=== PATIENT | male | born 1950 | race Caucasian/White ===

== ENCOUNTER → 2016-09-26 | Outpatient (CLI) | payer MEDICARE ==
--- NOTE | 2016-09-26 15:48 | XR ---
EXAMINATION TYPE: XR chest 2V DATE OF EXAM: 09/26/2016 3:06 PM COMPARISON: 09/07/2010 TECHNIQUE: PA and lateral views submitted. HISTORY: Hoarseness and COPD FINDINGS: The lungs are clear and there is no pneumothorax, pleural effusion, or focal pneumonia. There is pr ominent interstitial markings at the lung bases. No pneumothorax. Hypertrophic and degenerative ibrahim e of the spine. IMPRESSION: 1. Correlate for pulmonary fibrosis. Otherwise, consider interstitial pneumonitis or early venous con gestion. Underlying atelectasis or early infiltrate at both lung bases. Atelectasis favored. Correlat e clinically..
== END | disposition home or self-care (01) ==
LOC: RADXRMAIN 14:53
PROVIDERS: ATTEND Physician Assistant
DX: J44.9 Chronic obstructive pulmonary disease, unspecified (principal)
CPT/HCPCS: 71020

== ENCOUNTER 2016-10-27 10:58 | Emergency (ER) | payer MEDICARE ==
[2016-10-27] MEDS ORDERED: IPRATROPIUM-ALBUTEROL 3 ML NEB INHALATION STA (11:39)
[2016-10-27] MEDS ORDERED: predniSONE 20 MG TAB PO STA (11:39)
--- NOTE | 2016-10-27 12:19 | XR ---
EXAMINATION TYPE: XR chest 2V DATE OF EXAM: 10/27/2016 12:12 PM COMPARISON: 09/26/2016 and 10/14/2016 HISTORY: 66-year-old male with cough TECHNIQUE: PA and lateral views FINDINGS: Heart is normal size. Aorta and pulmonary vasculature within normal limits. There is persistent patch y bibasilar opacity. IMPRESSION: Persistent patchy bibasilar areas of atelectasis or infiltrates.
--- NOTE | 2016-10-27 12:59 | ED ---
General Adult HPI - General Chief complaint: Upper Respiratory Infection Stated complaint: congestion, diff breathing Time Seen by Provider: 10/27/16 11:30 Source: patient, RN notes reviewed Mode of arrival: ambulatory Limitations: no limitations - History of Present Illness Initial comments: 66-year-old male with history of COPD presenting for cough. Patient states that the cough and mild shortness of breath over the past 3 days. He states that he has been using his home nebulizer which does seem to improve his symptoms for some time then symptoms return. He has not been on any recent steroids. He was on antibiotics about a month ago when he had similar symptoms. Denies any fevers or chills. He denies any chest pain. - Related Data Home Medications Medication Instructions Recorded Confirmed Atorvastatin [Lipitor] 20 mg PO DAILY 12/11/15 10/27/16 Insulin Glargine [Lantus] 45 units SQ HS 12/11/15 10/27/16 Lisinopril-Hctz 20-12.5 mg 2 tab PO DAILY 12/11/15 10/27/16 [Zestoretic 20-12.5] Tamsulosin HCl [Flomax] 0.8 mg PO DAILY 12/11/15 10/27/16 glipiZIDE [Glucotrol] 10 mg PO BID 12/11/15 10/27/16 Previous Rx's Medication Instructions Recorded Benztropine Mesylate 1 mg PO BID #60 tablet 12/21/15 Divalproex ER [Depakote ER] 500 mg PO BID #60 tab.er.24h 12/21/15 Perphenazine [Trilafon] 8 mg PO BID #120 tab 12/21/15 Azithromycin [Zithromax] 250 mg PO DAILY #6 tab 10/27/16 predniSONE 40 mg PO DAILY #10 tab 10/27/16 Allergies Allergy/AdvReac Type Severity Reaction Status Date / Time alcohol AdvReac Unknown Verified 10/27/16 11:51 narcotics AdvReac Unknown Uncoded 10/27/16 11:51 Review of Systems ROS Statement: Those systems with pertinent positive or pertinent negative responses have been documented in the HPI. ROS Other: All systems not noted in ROS Statement are negative. 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 Living in a envirnoment with bed bugs, no visualized on patient on admission. 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 - Past Family History Father Additional Family Medical History / Comment(s): Alcoholic Mother Family Medical History: CVA/TIA, Diabetes Mellitus, Myocardial Infarction ([place]) Additional Family Medical History / Comment(s): Addiction Issues, Dementia Daughter(s) Family Medical History: Cancer Additional Family Medical History / Comment(s): Ovarian Cancer General Exam - General Exam Comments Initial Comments: General: Awake and Alert. No acute distress. Does not appear acutely ill. Eyes: EZIO, EOM intact. No nystagmus. No scleral icterus. HENT: Atraumatic, normocephalic. Mucous membranes moist. Trachea midline. Neck: The neck is supple, there is no tenderness or JVD. Cardiovascular: Regular rate and rhythm. No murmur, rub, or gallop is appreciated. Distal pulses intact. Respiratory: Lungs are clear to auscultation bilaterally. Mild wheezes. No rales, rhonchi. No respiratory distress. Gastrointestinal: Soft, Nontender. No rebound or guarding. Non-distended. No masses or organomegaly noted. No CVA tenderness. Musculoskeletal: No tenderness. Normal ROM. No gross deformity. No strength deficits. Neurological: A&Ox3. CN II-XII grossly intact, There are no obvious motor or sensory deficits. Coordination appears grossly intact. Speech is normal. Skin: Skin is warm and dry and no rashes or lesions are noted. Psychiatric: Cooperative, appropriate mood & affect, normal judgment. Limitations: no limitations Course Vital Signs 10/27/16 10/27/16 10/27/16 11:11 11:50 11:58 Temperature 99.0 F Pulse Rate 89 90 96 Respiratory 20 Rate Blood Pressure 136/86 O2 Sat by Pulse 99 Oximetry 10/27/16 10/27/16 13:14 13:18 Temperature 97.7 F 97.7 F Pulse Rate 86 86 Respiratory 16 16 Rate Blood Pressure 141/84 141/84 O2 Sat by Pulse 97 97 Oximetry Medical Decision Making - Medical Decision Making 66-year-old male with history of COPD presenting for shortness of breath and cough. Patient appears clinic stable on exam. No hypoxia. Patient given dose of steroid and breathing treatment. On reevaluation he states he is feeling significantly improved. Chest x-ray with possible early infiltrate. Covered on antibiotics. Also started on steroids. Discussed close follow-up with PCP. Patient states he is also followed with Dr. Bernstein in the past for pulmonology. States he has nebulizer and nebulizer solution at home. Discussed he may use this every 4-6 hours as needed. Discussed recommendation to stop smoking. Discussed concerning signs symptoms for immediate return to the ER. Patient is agreeable with plan and discharge home. - Radiology Data Radiology results: report reviewed, image reviewed Disposition Clinical Impression: COPD exacerbation, Cough, Tobacco abuse Narrative: Possible pneumonia Disposition: HOME SELF-CARE Condition: Stable Instructions: COPD (Chronic Obstructive Pulmonary Disease) (ED), Acute Cough ( ED), How to Stop Smoking (ED) Prescriptions: Azithromycin [Zithromax] 250 mg PO DAILY #6 tab predniSONE 40 mg PO DAILY #10 tab Referrals: Jose Edge MD [Primary Care Provider] - 1-2 days Time of Disposition: 12:58
[2016-10-27 13:16] VITALS: BP 141/84; PULSE 86; RESP 16; TEMP 97.7
== END 2016-10-27 13:19 | disposition home or self-care (01) ==
LOC: EC 10:58
DX: J44.1 Chronic obstructive pulmonary disease with (acute) exacerbation (principal); I25.10 Atherosclerotic heart disease of native coronary artery without angina pectoris; E11.9 Type 2 diabetes mellitus without complications; E78.5 Hyperlipidemia, unspecified; I10 Essential (primary) hypertension; F20.0 Paranoid schizophrenia; N42.9 Disorder of prostate, unspecified; F17.200 Nicotine dependence, unspecified, uncomplicated; Z79.4 Long term (current) use of insulin; Z79.899 Other long term (current) drug therapy; Z88.5 Allergy status to narcotic agent; Z91.048 Other nonmedicinal substance allergy status
CPT/HCPCS: 94640; 71020; 99283; J7512

== ENCOUNTER 2016-11-12 02:19 | Emergency (ER) | payer MEDICARE ==
[2016-11-12] MEDS ORDERED: LORazepam 1 MG TAB PO STA (02:46)
--- NOTE | 2016-11-12 03:57 | ED ---
General Adult HPI - General Chief complaint: Shortness of Breath Stated complaint: SOB Time Seen by Provider: 11/12/16 02:34 Source: patient, RN notes reviewed, old records reviewed Mode of arrival: ambulatory Limitations: no limitations - History of Present Illness Initial comments: This is a 58-year-old male to the ER for evaluation today. The patient didn't stay for evaluation of anxiety reaction. Patient having severe anxiety attack. He says multiple drug addict, alcohol, narcotics, heroin, going through anxiety secondary to family issues. Patient denies chest pain denies shortness of breath but just is pacing in the room. Patient states vacated do a stress anywhere. House other suicidal - Related Data Home Medications Medication Instructions Recorded Confirmed Atorvastatin [Lipitor] 20 mg PO DAILY 12/11/15 10/27/16 Insulin Glargine [Lantus] 45 units SQ HS 12/11/15 10/27/16 Lisinopril-Hctz 20-12.5 mg 2 tab PO DAILY 12/11/15 10/27/16 [Zestoretic 20-12.5] Tamsulosin HCl [Flomax] 0.8 mg PO DAILY 12/11/15 10/27/16 glipiZIDE [Glucotrol] 10 mg PO BID 12/11/15 10/27/16 Previous Rx's Medication Instructions Recorded Benztropine Mesylate 1 mg PO BID #60 tablet 12/21/15 Divalproex ER [Depakote ER] 500 mg PO BID #60 tab.er.24h 12/21/15 Perphenazine [Trilafon] 8 mg PO BID #120 tab 12/21/15 Azithromycin [Zithromax] 250 mg PO DAILY #6 tab 10/27/16 predniSONE 40 mg PO DAILY #10 tab 10/27/16 Allergies Allergy/AdvReac Type Severity Reaction Status Date / Time alcohol AdvReac Unknown Verified 11/12/16 02:23 narcotics AdvReac Unknown Uncoded 11/12/16 02:23 Review of Systems ROS Statement: Those systems with pertinent positive or pertinent negative responses have been documented in the HPI. ROS Other: All systems not noted in ROS Statement are negative. 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 Living in a envirnoment with bed bugs, no visualized on patient on admission. 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 - Past Family History Father Additional Family Medical History / Comment(s): Alcoholic Mother Family Medical History: CVA/TIA, Diabetes Mellitus, Myocardial Infarction ([place]) Additional Family Medical History / Comment(s): Addiction Issues, Dementia Daughter(s) Family Medical History: Cancer Additional Family Medical History / Comment(s): Ovarian Cancer General Exam Limitations: no limitations General appearance: alert, anxious Head exam: Present: atraumatic, normocephalic, normal inspection Eye exam: Present: normal appearance, PERRL, EOMI. Absent: scleral icterus, conjunctival injection, periorbital swelling ENT exam: Present: normal exam, mucous membranes moist Neck exam: Present: normal inspection. Absent: tenderness, meningismus, lymphadenopathy Respiratory exam: Present: normal lung sounds bilaterally. Absent: respiratory distress, wheezes, rales, rhonchi, stridor Cardiovascular Exam: Present: normal rhythm, tachycardia, normal heart sounds. Absent: systolic murmur, diastolic murmur, rubs, gallop, clicks GI/Abdominal exam: Present: soft, normal bowel sounds. Absent: distended, tenderness, guarding, rebound, rigid Extremities exam: Present: normal inspection, full ROM, normal capillary refill. Absent: tenderness, pedal edema, joint swelling, calf tenderness Back exam: Present: normal inspection Neurological exam: Present: alert, oriented X3, CN II-XII intact Psychiatric exam: Present: normal affect, normal mood Skin exam: Present: warm, dry, intact, normal color. Absent: rash Course Vital Signs 11/12/16 11/12/16 02:22 03:24 Temperature 98.3 F Pulse Rate 112 H 83 Respiratory 24 23 Rate Blood Pressure 144/71 111/64 O2 Sat by Pulse 100 100 Oximetry - Reevaluation(s) Reevaluation #1: 11/12/16 06:04 Patient able to rest after Ativan, calm and collected, never complaining of homicide or suicide, Medical Decision Making - Medical Decision Making 6 emailed the year with this or drug abuse coming in with anxiety attack. Symptoms improved with Ativan. Patient will be discharged home Disposition Clinical Impression: Anxiety Disposition: HOME SELF-CARE Condition: Good Instructions: Anxiety (ED) Referrals: Jose Edge MD [Primary Care Provider] - 1-2 days
[2016-11-12 06:31] VITALS: BP 135/72; PULSE 93; RESP 18; TEMP 98.8
== END 2016-11-12 08:13 | disposition home or self-care (01) ==
LOC: EC 02:19
DX: F41.0 Panic disorder [episodic paroxysmal anxiety] (principal); E11.9 Type 2 diabetes mellitus without complications; I10 Essential (primary) hypertension; E78.5 Hyperlipidemia, unspecified; N42.9 Disorder of prostate, unspecified; F17.200 Nicotine dependence, unspecified, uncomplicated; Z79.4 Long term (current) use of insulin; Z79.899 Other long term (current) drug therapy; Z88.5 Allergy status to narcotic agent; Z91.048 Other nonmedicinal substance allergy status; Z95.5 Presence of coronary angioplasty implant and graft
CPT/HCPCS: 99285

== ENCOUNTER 2016-11-13 21:48 | Emergency (ER) | payer MEDICARE ==
--- NOTE | 2016-11-13 22:27 | ED ---
General Adult HPI - General Source: patient, RN notes reviewed Mode of arrival: ambulatory Limitations: no limitations <Scooby Kang - Last Filed: 11/13/16 22:58> <Asher Albarran - Last Filed: 11/14/16 01:47> - General Chief complaint: Psychiatric Symptoms Stated complaint: Mental Health Time Seen by Provider: 11/13/16 22:12 - History of Present Illness Initial comments: Patient is a 66-year-old male with history of bipolar schizophrenia presenting to the emergency Department with problems regarding a breakup with his girlfriend. Patient states this was around March. Patient states he broke up with her because she did not want to go to the psych [facility]ones. Patient has been having problems since that time. Patient is not sleeping well. Patient feels like he has been drugged. Patient has been anxious. Patient states earlier at the hotel he did have some fainting suicidal thoughts however he prayed and no longer has those thoughts. No homicidal thoughts. No hallucinations. (Scooby Kang) - Related Data Home Medications Medication Instructions Recorded Confirmed Insulin Glargine [Lantus] 45 units SQ HS 12/11/15 11/13/16 Lisinopril-Hctz 20-12.5 mg 1 tab PO DAILY 12/11/15 11/13/16 [Zestoretic 20-12.5] Tamsulosin HCl [Flomax] 0.8 mg PO DAILY 12/11/15 11/13/16 glipiZIDE [Glucotrol] 10 mg PO BID 12/11/15 11/13/16 Atorvastatin [Lipitor] 20 mg PO DAILY 11/13/16 11/13/16 Ciprofloxacin HCl [Cipro] 500 mg PO Q12HR 11/13/16 11/13/16 Niacin 500 mg PO DAILY 11/13/16 11/13/16 Perphenazine [Trilafon] 4 mg PO TID 11/13/16 11/13/16 predniSONE See Taper PO DAILY 11/13/16 11/13/16 Previous Rx's Medication Instructions Recorded Benztropine Mesylate 1 mg PO BID #60 tablet 12/21/15 Allergies Allergy/AdvReac Type Severity Reaction Status Date / Time alcohol AdvReac Unknown Verified 11/12/16 02:23 narcotics AdvReac Unknown Uncoded 11/12/16 02:23 Review of Systems ROS Other: All systems not noted in ROS Statement are negative. Constitutional: Denies: fever Eyes: Denies: eye pain ENT: Denies: ear pain Respiratory: Denies: cough Cardiovascular: Denies: chest pain Endocrine: Denies: fatigue Gastrointestinal: Denies: abdominal pain Genitourinary: Denies: dysuria Musculoskeletal: Denies: back pain Skin: Denies: rash Neurological: Denies: weakness Psychiatric: Reports: anxiety, depression. Denies: auditory hallucinations, visual hallucinations <Scooby Kang - Last Filed: 11/13/16 22:58> ROS Other: All systems not noted in ROS Statement are negative. <Asher Albarran - Last Filed: 11/14/16 01:47> ROS Statement: Those systems with pertinent positive or pertinent negative responses have been documented in the HPI. 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 Living in a envirnoment with bed bugs, no visualized on patient on admission. 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 - Past Family History Father Additional Family Medical History / Comment(s): Alcoholic Mother Family Medical History: CVA/TIA, Diabetes Mellitus, Myocardial Infarction ([place]) Additional Family Medical History / Comment(s): Addiction Issues, Dementia Daughter(s) Family Medical History: Cancer Additional Family Medical History / Comment(s): Ovarian Cancer <Scooby Kang - Last Filed: 11/13/16 22:58> General Exam Limitations: no limitations General appearance: alert, in no apparent distress Head exam: Present: atraumatic Eye exam: Present: normal appearance, PERRL ENT exam: Present: normal oropharynx Neck exam: Present: normal inspection Respiratory exam: Present: normal lung sounds bilaterally Cardiovascular Exam: Present: regular rate, normal rhythm GI/Abdominal exam: Present: soft. Absent: tenderness Extremities exam: Present: normal inspection Neurological exam: Present: alert Psychiatric exam: Present: manic Skin exam: Present: normal color <Scooby Kang - Last Filed: 11/13/16 22:58> EKG Findings - EKG Comments: EKG Findings:: Normal sinus rhythm 83. MI 122. QRS 82. QT 344. QTC 404. Normal axis. Normal QRS. Normal ST-T. <Scooby Kang - Last Filed: 11/13/16 22:58> Medical Decision Making <Scooby Kang - Last Filed: 11/13/16 22:58> - Lab Data Result diagrams: 11/13/16 22:43 11/13/16 22:43 <Asher Albarran - Last Filed: 11/14/16 01:47> - Medical Decision Making I receive this patient has a sign out, pending the behavioral health evaluation. The patient has been seen and appears to be stable for outpatient care. He is clarisa for safety. Discussed return parameters. (Asher Albarran) - Lab Data Lab Results 11/13/16 11/13/16 11/14/16 Range/Units 22:43 22:43 00:21 WBC 10.1 (3.8-10.6) k/uL RBC 4.41 (4.30-5.90) m/uL Hgb 13.5 (13.0-17.5) gm/dL Hct 40.0 (39.0-53.0) % MCV 90.7 (80.0-100.0) fL MCH 30.6 (25.0-35.0) pg MCHC 33.7 (31.0-37.0) g/dL RDW 13.5 (11.5-15.5) % Plt Count 256 (150-450) k/uL Neutrophils % 92 % Lymphocytes % 5 % Monocytes % 2 % Eosinophils % 1 % Basophils % 0 % Neutrophils # 9.3 H (1.3-7.7) k/uL Lymphocytes # 0.5 L (1.0-4.8) k/uL Monocytes # 0.2 (0-1.0) k/uL Eosinophils # 0.1 (0-0.7) k/uL Basophils # 0.0 (0-0.2) k/uL Sodium 134 L (137-145) mmol/L Potassium 4.5 (3.5-5.1) mmol/L Chloride 103 (98-107) mmol/L Carbon Dioxide 21 L (22-30) mmol/L Anion Gap 10 mmol/L BUN 30 H (9-20) mg/dL Creatinine 1.20 (0.66-1.25) mg/dL Est GFR (MDRD) Af Amer >60 (>60 ml/min/1.73 sqM) Est GFR (MDRD) Non-Af >60 (>60 ml/min/1.73 sqM) Glucose 225 H (74-99) mg/dL POC Glucose (mg/dL) 266 H (75-99) mg/dL POC Glu [employer] ID [employer] Calcium 9.2 (8.4-10.2) mg/dL Serum Alcohol <10 mg/dL Disposition <Scooby Kang - Last Filed: 11/13/16 22:58> <Asher Albarran - Last Filed: 11/14/16 01:47> Clinical Impression: Adjustment reaction Disposition: HOME SELF-CARE Condition: Fair Instructions: Mood Disorders (ED) Referrals: Jose Edge MD [Primary Care Provider] - 1-2 days
[2016-11-13 22:56] LABS: Basophils % (A) 0 %; CH 30.9; CHCM 34.1; Eosinophils # (A) 0.1 k/uL (0-0.7); Eosinophils % (A) 1 %; HDW 2.49; HGB 13.5 gm/dL (13.0-17.5); Luc # (Auto) 0.06; Luc % (Auto) 1; Lymphocytes # (A) 0.5 k/uL (1.0-4.8); Lymphocytes % (A) 5 %; MCH 30.6 pg (25.0-35.0); MCHC 33.7 g/dL (31.0-37.0); MCV 90.7 fL (80.0-100.0); Mean Platelet Volume 6.5; Monocytes # (A) 0.2 k/uL (0-1.0); Monocytes % (A) 2 %; Neutrophils # (A) 9.3 k/uL (1.3-7.7); Neutrophils % (A) 92 %; RBC 4.41 m/uL (4.30-5.90); RDW 13.5 % (11.5-15.5); WBC 10.1 k/uL (3.8-10.6); WBC (Perox) 10.36
[2016-11-13 23:10] LABS: Alcohol <10 mg/dL; Anion Gap 10 mmol/L; Blood Urea Nitrogen 30 mg/dL (9-20); Calcium 9.2 mg/dL (8.4-10.2); Carbon Dioxide 21 mmol/L (22-30); Chloride 103 mmol/L (98-107); Glucose 225 mg/dL (74-99); Non-African American GFR(MDRD) >60 (>60 ml/min/1.73 sqM); Potassium 4.5 mmol/L (3.5-5.1); Sodium 134 mmol/L (137-145)
[2016-11-14 00:23] LABS: Glucose,Whole Blood 266 mg/dL (75-99)
[2016-11-14 01:56] VITALS: BP 130/66; PULSE 97; RESP 18; TEMP 97.3
== END 2016-11-14 01:55 | disposition home or self-care (01) ==
LOC: EC 21:48
DX: F43.20 Adjustment disorder, unspecified (principal); E11.9 Type 2 diabetes mellitus without complications; E78.5 Hyperlipidemia, unspecified; I10 Essential (primary) hypertension; I25.10 Atherosclerotic heart disease of native coronary artery without angina pectoris; M19.042 Primary osteoarthritis, left hand; F20.0 Paranoid schizophrenia; N42.9 Disorder of prostate, unspecified; F17.200 Nicotine dependence, unspecified, uncomplicated; Z79.4 Long term (current) use of insulin; Z79.52 Long term (current) use of systemic steroids; Z79.84 Long term (current) use of oral hypoglycemic drugs; Z79.899 Other long term (current) drug therapy; Z88.5 Allergy status to narcotic agent; Z91.09 Other allergy status, other than to drugs and biological substances
CPT/HCPCS: 36415; 80048; 80320; 82075; 85025; 93005; 99284

== ENCOUNTER 2017-03-06 12:18 | Emergency (ER) | payer OTHER, MEDICARE ==
[2017-03-06 12:37] VITALS: TEMP 97
[2017-03-06 13:22] LABS: Basophils % (A) 1 %; CH 32.2; CHCM 34.1; Eosinophils # (A) 0.4 k/uL (0-0.7); Eosinophils % (A) 5 %; HCT 43.9 % (39.0-53.0); HDW 2.41; HGB 14.5 gm/dL (13.0-17.5); Luc % (Auto) 3; Lymphocytes # (A) 1.4 k/uL (1.0-4.8); Lymphocytes % (A) 19 %; MCH 31.3 pg (25.0-35.0); MCV 94.7 fL (80.0-100.0); Mean Platelet Volume 7.5; Monocytes # (A) 0.4 k/uL (0-1.0); Monocytes % (A) 6 %; Neutrophils # (A) 4.7 k/uL (1.3-7.7); Neutrophils % (A) 66 %; RBC 4.63 m/uL (4.30-5.90); RDW 12.9 % (11.5-15.5); WBC 7.1 k/uL (3.8-10.6); WBC (Perox) 6.99
[2017-03-06 13:40] LABS: ALT 39 U/L (21-72); AST 19 U/L (17-59); Acetaminophen <10.0 ug/mL; Alkaline Phosphatase 111 U/L (38-126); Anion Gap 9 mmol/L; Blood Urea Nitrogen 21 mg/dL (9-20); Calcium 9.2 mg/dL (8.4-10.2); Carbon Dioxide 24 mmol/L (22-30); Chloride 108 mmol/L (98-107); Glucose 72 mg/dL (74-99); Non-African American GFR(MDRD) >60 (>60 ml/min/1.73 sqM); Potassium 3.8 mmol/L (3.5-5.1); Salicylate <1.0 mg/dL; Sodium 141 mmol/L (137-145); Total Bilirubin 0.5 mg/dL (0.2-1.3); Total Protein 6.7 g/dL (6.3-8.2)
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
[2017-03-06] MEDS ORDERED: LORazepam 1 MG TAB PO STA ×2 (15:12→17:38)
[2017-03-06 19:38] LABS: Appearance,Urine Clear (Clear); Bilirubin,Urine Negative (Negative); Glucose,Urine (UA) Negative (Negative); Ketones,Urine Negative (Negative); Leukocyte Esterase,Urine Negative (Negative); Nitrite,Urine Negative (Negative); Protein,Urine Negative (Negative); Specific Gravity,Urine 1.014 (1.001-1.035); UA Billing (MACRO vs. MICRO) CHEM; Urobilinogen,Urine <2.0 mg/dL (<2.0)
[2017-03-06 19:51] VITALS: RESP 18
[2017-03-06] MEDS ORDERED: LISINOPRIL-HCTZ 20-12.5 MG 1 EACH TAB PO STA (20:13)
[2017-03-06] MEDS ORDERED: ALBUTEROL NEBULIZED 2.5 MG/3 ML INHALATION STA (20:15)
[2017-03-06] MEDS ORDERED: glipiZIDE 10 MG TAB PO STA (20:16)
[2017-03-06] MEDS ORDERED: PERPHENAZINE 4 MG TAB PO STA (20:17)
[2017-03-06 21:03] LABS: Glucose,Whole Blood 186 mg/dL (75-99)
[2017-03-07] MEDS ORDERED: LORazepam 1 MG TAB PO STA (05:12)
[2017-03-07 06:33] VITALS: BP 159/78; PULSE 78
[2017-03-07 06:46] LABS: Glucose,Whole Blood 68 mg/dL (75-99)
[2017-03-07 07:08] LABS: Glucose,Whole Blood 101 mg/dL (75-99)
== END 2017-03-07 07:25 ==
LOC: EC 12:18
DX: F23 Brief psychotic disorder (principal); I25.10 Atherosclerotic heart disease of native coronary artery without angina pectoris; E11.9 Type 2 diabetes mellitus without complications; E78.5 Hyperlipidemia, unspecified; I10 Essential (primary) hypertension; F20.0 Paranoid schizophrenia; M19.042 Primary osteoarthritis, left hand; F43.10 Post-traumatic stress disorder, unspecified; F17.200 Nicotine dependence, unspecified, uncomplicated; Z79.1 Long term (current) use of non-steroidal anti-inflammatories (NSAID); Z79.4 Long term (current) use of insulin; Z79.899 Other long term (current) drug therapy; Z88.5 Allergy status to narcotic agent; Z91.048 Other nonmedicinal substance allergy status
CPT/HCPCS: 82075; 36415 ×2; 94640; 93005; 80053; 85025; 81003; 80306; 83520 ×2; 99285; Q0175

== ENCOUNTER 2017-04-01 14:37 | Emergency (ER) | payer MEDICARE, OTHER ==
[2017-04-01 14:51] VITALS: BP 127/65; PULSE 80; RESP 18; TEMP 97.8
[2017-04-01] MEDS ORDERED: KETOROLAC 60 MG/2 ML VIAL IM STA (15:38)
--- NOTE | 2017-04-01 15:44 | ED ---
General Adult HPI - General Chief complaint: Extremity Problem,Nontraumatic Stated complaint: Shoulder Pain Time Seen by Provider: 04/01/17 15:07 Source: patient, RN notes reviewed Mode of arrival: ambulatory Limitations: no limitations - History of Present Illness Initial comments: 67 -year-old male presents to the emergency department with the complaint of left shoulder pain. Patient states that he chronically suffers from left shoulder pain he is hoping to get a cortisone shot today. Patient states she is stiff and painful to move. This is much like his typical shoulder pain. Denies any new falls or injuries to the shoulder. He was concerned due to his symptoms he was hoping that maybe we could give him this injection. Patient denies any recent fever, chills, shortness of breath, chest pain, back pain, abdominal pain, nausea vomiting, numbness or tingling, dysuria or hematuria, constipation or diarrhea, headaches or visual changes, or any other current symptoms. - Related Data Home Medications Medication Instructions Recorded Confirmed Insulin Glargine [Lantus] 46 units SQ HS 12/11/15 04/01/17 Lisinopril-Hctz 20-12.5 mg 1 tab PO DAILY 12/11/15 04/01/17 [Zestoretic 20-12.5] Tamsulosin HCl [Flomax] 0.8 mg PO DAILY 12/11/15 04/01/17 Perphenazine [Trilafon] 4 mg PO TID 11/13/16 04/01/17 Sertraline HCl [Zoloft] 100 mg PO DAILY 11/17/16 04/01/17 Albuterol Inhaler [Ventolin Hfa 2 puff INHALATION RT-QID PRN 03/06/17 04/01/17 Inhaler] Albuterol Nebulized [Ventolin 2.5 mg INHALATION RT-TID PRN 03/06/17 04/01/17 Nebulized] Atorvastatin [Lipitor] 20 mg PO DAILY 03/06/17 04/01/17 Nicotine 21Mg/24Hr Patch [Habitrol 1 patch TRANSDERM DAILY 03/06/17 04/01/17 21Mg/24Hr Patch] Omeprazole [PriLOSEC] 20 mg PO DAILY 03/06/17 04/01/17 Acetaminophen [Tylenol] 650 mg PO QID PRN 04/01/17 04/01/17 Amantadine HCl [Symmetrel] 100 mg PO BID 04/01/17 04/01/17 Aspirin EC [Ecotrin Low Dose] 81 mg PO HS 04/01/17 04/01/17 Cholecalciferol [Vitamin D3] 4,000 unit PO HS 04/01/17 04/01/17 Dextrose Gel [Glutose 15 Gel] 15 gm PO DAILY PRN 04/01/17 04/01/17 Divalproex Sodium 1,000 mg PO HS 04/01/17 04/01/17 LORazepam [Ativan] 1 mg PO Q6H PRN 04/01/17 04/01/17 Pioglitazone [Actos] 15 mg PO DAILY 04/01/17 04/01/17 Vitamin E Acetate [Vitamin E] 200 unit PO DAILY 04/01/17 04/01/17 Allergies Allergy/AdvReac Type Severity Reaction Status Date / Time alcohol AdvReac Unknown Verified 04/01/17 15:18 narcotics AdvReac Unknown Uncoded 03/06/17 12:22 Review of Systems ROS Statement: Those systems with pertinent positive or pertinent negative responses have been documented in the HPI. ROS Other: All systems not noted in ROS Statement are negative. 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 Living in a envirnoment with bed bugs, no visualized on patient on admission. vertigo History of Any Multi-Drug Resistant Organisms: None Reported Past Surgical History: Heart Catheterization With Stent Additional Past Surgical History / Comment(s): Tumor removed from chest in 1972 , Cardiac stent placed in 2002 Past Anesthesia/Blood Transfusion Reactions: No Reported Reaction Date of Last Stent Placement:: 2002 Past Psychological History: PTSD, Schizophrenia Smoking Status: Current every day smoker Past Alcohol Use History: None Reported Past Drug Use History: Marijuana - Past Family History Father Additional Family Medical History / Comment(s): Alcoholic Mother Family Medical History: CVA/TIA, Diabetes Mellitus, Myocardial Infarction (ID) Additional Family Medical History / Comment(s): Addiction Issues, Dementia Daughter(s) Family Medical History: Cancer Additional Family Medical History / Comment(s): Ovarian Cancer General Exam - General Exam Comments Initial Comments: General: The patient is awake and alert, in no distress, and does not appear acutely ill. Neck: The neck is supple, there is no tenderness. Cardiovascular: There is a regular rate and rhythm. No murmur, rub or gallop is appreciated. Respiratory: Lungs are clear to auscultation, respirations are non-labored, breath sounds are equal. No wheezes, stridor, rales, or rhonchi. Musculoskeletal: Sensation intact with 2+ pulses throughout the left upper x- ray. For range of motion of the left elbow and hand. He does have pain with range of motion of the left shoulder and he will not fully adduct the shoulder due to pain. No swelling or deformity noted. No tenderness patient of the neck or along the spine of the scapular clavicle. No acute deformity noted. No trauma. Neurological: CN II-XII intact, There are no obvious motor or sensory deficits. Coordination appears grossly intact. Speech is normal. Skin: Skin is warm and dry and no rashes or lesions are noted. Psychiatric: Normal mood and affect. Limitations: no limitations Course Vital Signs 04/01/17 14:47 Temperature 97.8 F Pulse Rate 80 Respiratory 18 Rate Blood Pressure 127/65 O2 Sat by Pulse 99 Oximetry Medical Decision Making - Medical Decision Making 67-year-old male presents emergency department with a chief complaint of left shoulder pain that is chronic. Extremities discussed do not do cortisone shot. Discussed case to follow-up with his orthopedic doctor. They stated the Leonel on questions have been answered. At this time the patient will be discharged home. Disposition Clinical Impression: Chronic left shoulder pain Disposition: HOME SELF-CARE Condition: Stable Instructions: Shoulder Pain (ED) Additional Instructions: Please use medication as discussed. Please follow up with family doctor if symptoms have not improved over the next two days. Please return to the emergency room if your symptoms increase or worsen or for any other concerns. Referrals: Jose Edge MD [Primary Care Provider] - 1-2 days Tc Law MD [STAFF PHYSICIAN] - 1-2 days Time of Disposition: 15:43
== END 2017-04-01 16:04 | disposition home or self-care (01) ==
LOC: EC 14:37
DX: G89.29 Other chronic pain (principal); M25.512 Pain in left shoulder; F17.200 Nicotine dependence, unspecified, uncomplicated; E78.5 Hyperlipidemia, unspecified; I10 Essential (primary) hypertension; I25.10 Atherosclerotic heart disease of native coronary artery without angina pectoris; E11.9 Type 2 diabetes mellitus without complications; M19.042 Primary osteoarthritis, left hand; N42.9 Disorder of prostate, unspecified; F20.0 Paranoid schizophrenia; Z79.4 Long term (current) use of insulin; Z79.82 Long term (current) use of aspirin; Z79.84 Long term (current) use of oral hypoglycemic drugs; Z79.899 Other long term (current) drug therapy; Z88.5 Allergy status to narcotic agent; Z91.048 Other nonmedicinal substance allergy status
CPT/HCPCS: 99283; 96372; J1885

== ENCOUNTER 2017-07-12 14:43 | Inpatient (IN) | payer OTHER, MEDICARE ==
--- NOTE | 2017-07-12 15:17 | ED ---
General Adult HPI - General Chief complaint: Psychiatric Symptoms Stated complaint: Mental health eval Time Seen by Provider: 07/12/17 15:03 Source: patient, family, RN notes reviewed Mode of arrival: ambulatory Limitations: no limitations - History of Present Illness Initial comments: patient is a pleasant 4 he 7-year-old male presenting to the emergency Department with need for mental health evaluation. Patient states he has a distant history of substance abuse. Patient had one drink of alcohol on [place]. Patient has been using marijuana. is more concerned with patient's mental state. Patient has been taking his medications. Patient is having hallucinations. Patient has heard voices and other things. Patient has seen people who he does not believe are actually there. Patient has racing thoughts and it's hard to concentrate. Patient feels foggy. No new physical complaints. - Related Data Home Medications Medication Instructions Recorded Confirmed Insulin Glargine [Lantus] 48 units SQ HS 12/11/15 07/12/17 Lisinopril-Hctz 20-12.5 mg 1 tab PO HS 12/11/15 07/12/17 [Zestoretic 20-12.5] Tamsulosin HCl [Flomax] 0.8 mg PO HS 12/11/15 07/12/17 Perphenazine [Trilafon] 4 mg PO TID 11/13/16 07/12/17 Sertraline HCl [Zoloft] 100 mg PO DAILY 11/17/16 07/12/17 Albuterol Nebulized [Ventolin 2.5 mg INHALATION RT-TID PRN 03/06/17 07/12/17 Nebulized] Atorvastatin [Lipitor] 40 mg PO HS 03/06/17 07/12/17 Omeprazole [PriLOSEC] 20 mg PO DAILY 03/06/17 07/12/17 Acetaminophen [Tylenol] 650 mg PO QID PRN 04/01/17 07/12/17 Amantadine HCl [Symmetrel] 100 mg PO BID 04/01/17 07/12/17 Aspirin EC [Ecotrin Low Dose] 81 mg PO HS 04/01/17 07/12/17 Cholecalciferol [Vitamin D3] 5,000 unit PO HS 04/01/17 07/12/17 Dextrose Gel [Glutose 15 Gel] 15 gm PO DAILY PRN 04/01/17 07/12/17 LORazepam [Ativan] 1 mg PO Q6H PRN 04/01/17 07/12/17 Pioglitazone [Actos] 15 mg PO DAILY 04/01/17 07/12/17 Albuterol Sulfate [Proair Hfa] 2 puff INHALATION RT-QID PRN 07/12/17 07/12/17 Cyanocobalamin (Vitamin B-12) 1,000 mcg PO DAILY 07/12/17 07/12/17 [Vitamin B-12] Divalproex ER [Depakote ER] 1,000 mg PO HS 07/12/17 07/12/17 Meclizine HCl 25 mg PO DAILY 07/12/17 07/12/17 Multivitamins, Thera [Multivitamin 1 tab PO DAILY 07/12/17 07/12/17 (formulary)] Niacin [Niacin ER] 500 mg PO DAILY 07/12/17 07/12/17 glipiZIDE [Glucotrol] 10 mg PO AC-BID 07/12/17 07/12/17 Allergies Allergy/AdvReac Type Severity Reaction Status Date / Time alcohol AdvReac Unknown Verified 07/12/17 15:58 narcotics AdvReac Unknown Uncoded 07/12/17 15:03 Review of Systems ROS Statement: Those systems with pertinent positive or pertinent negative responses have been documented in the HPI. ROS Other: All systems not noted in ROS Statement are negative. Constitutional: Denies: fever Eyes: Denies: eye pain ENT: Denies: ear pain Respiratory: Denies: cough Cardiovascular: Denies: chest pain Endocrine: Denies: fatigue Gastrointestinal: Denies: abdominal pain Genitourinary: Denies: dysuria Musculoskeletal: Denies: back pain Skin: Denies: rash Neurological: Denies: weakness Psychiatric: Reports: auditory hallucinations, visual hallucinations Past Medical History Past Medical History: Coronary Artery Disease (CAD), Diabetes Mellitus, Hyperlipidemia, Hypertension, Prostate Disorder Additional Past Medical History / Comment(s): Paranoid Schizophrenia, 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 Living in a envirnoment with bed bugs, no visualized on patient on admission. vertigo History of Any Multi-Drug Resistant Organisms: None Reported Past Surgical History: Heart Catheterization With Stent Additional Past Surgical History / Comment(s): Tumor removed from chest in 1972 , Cardiac stent placed in 2002 Past Anesthesia/Blood Transfusion Reactions: No Reported Reaction Date of Last Stent Placement:: 2002 Past Psychological History: PTSD, Schizophrenia Smoking Status: Current every day smoker Past Alcohol Use History: None Reported Past Drug Use History: Marijuana - Past Family History Father Additional Family Medical History / Comment(s): Alcoholic Mother Family Medical History: CVA/TIA, Diabetes Mellitus, Myocardial Infarction ([place]) Additional Family Medical History / Comment(s): Addiction Issues, Dementia Daughter(s) Family Medical History: Cancer Additional Family Medical History / Comment(s): Ovarian Cancer General Exam Limitations: no limitations General appearance: alert, in no apparent distress Head exam: Present: atraumatic Eye exam: Present: normal appearance, PERRL, EOMI. Absent: nystagmus ENT exam: Present: normal oropharynx Neck exam: Present: normal inspection Respiratory exam: Present: normal lung sounds bilaterally Cardiovascular Exam: Present: regular rate, normal rhythm GI/Abdominal exam: Present: soft. Absent: tenderness Extremities exam: Present: normal inspection Neurological exam: Present: alert, oriented X3. Absent: motor sensory deficit Expanded Focused psych exam: Present: flight of ideas Skin exam: Present: normal color Course Vital Signs 07/12/17 14:55 Temperature 97 F L Pulse Rate 94 Respiratory 18 Rate Blood Pressure 157/85 O2 Sat by Pulse 99 Oximetry EKG Findings - EKG Comments: EKG Findings:: sinus rhythm 83. WV 1:30. QRS 84. QT 362. QTC 425. Normal axis. Normal QRS. Nonspecific ST-T. Medical Decision Making - Medical Decision Making patient was seen by mental health services with plan for transfer. - Lab Data Result diagrams: 07/12/17 17:10 07/12/17 17:10 Lab Results 07/12/17 07/12/17 07/12/17 Range/Units 15:55 15:55 17:10 WBC 8.1 (3.8-10.6) k/uL RBC 4.44 (4.30-5.90) m/uL Hgb 14.3 (13.0-17.5) gm/dL Hct 43.2 (39.0-53.0) % MCV 97.3 (80.0-100.0) fL MCH 32.2 (25.0-35.0) pg MCHC 33.1 (31.0-37.0) g/dL RDW 13.2 (11.5-15.5) % Plt Count 201 (150-450) k/uL Neutrophils % 68 % Lymphocytes % 19 % Monocytes % 6 % Eosinophils % 5 % Basophils % 1 % Neutrophils # 5.5 (1.3-7.7) k/uL Lymphocytes # 1.6 (1.0-4.8) k/uL Monocytes # 0.5 (0-1.0) k/uL Eosinophils # 0.4 (0-0.7) k/uL Basophils # 0.1 (0-0.2) k/uL Sodium (137-145) mmol/L Potassium (3.5-5.1) mmol/L Chloride (98-107) mmol/L Carbon Dioxide (22-30) mmol/L Anion Gap mmol/L BUN (9-20) mg/dL Creatinine (0.66-1.25) mg/dL Est GFR (MDRD) Af Amer (>60 ml/min/1.73 sqM) Est GFR (MDRD) Non-Af (>60 ml/min/1.73 sqM) Glucose (74-99) mg/dL Calcium (8.4-10.2) mg/dL Total Bilirubin (0.2-1.3) mg/dL AST (17-59) U/L ALT (21-72) U/L Alkaline Phosphatase (38-126) U/L Total Protein (6.3-8.2) g/dL Albumin (3.5-5.0) g/dL Urine Color Yellow Urine Appearance Clear (Clear) Urine pH 7.0 (5.0-8.0) Ur Specific [place] 1.014 (1.001-1.035) Urine Protein Negative (Negative) Urine Glucose (UA) Negative (Negative) Urine Ketones Negative (Negative) Urine Blood Negative (Negative) Urine Nitrite Negative (Negative) Urine Bilirubin Negative (Negative) Urine Urobilinogen 2.0 (<2.0) mg/dL Ur Leukocyte Esterase Negative (Negative) Urine Opiates Screen Not Detected (NotDetected) Ur Oxycodone Screen Not Detected (NotDetected) Urine Methadone Screen Not Detected (NotDetected) Ur Propoxyphene Screen Not Detected (NotDetected) Ur Barbiturates Screen Not Detected (NotDetected) U Tricyclic Antidepress Not Detected (NotDetected) Ur Phencyclidine Scrn Not Detected (NotDetected) Ur Amphetamines Screen Not Detected (NotDetected) U Methamphetamines Scrn Not Detected (NotDetected) U Benzodiazepines Scrn Not Detected (NotDetected) Urine Cocaine Screen Not Detected (NotDetected) U Marijuana (THC) Screen Not Detected (NotDetected) 07/12/17 Range/Units 17:10 WBC (3.8-10.6) k/uL RBC (4.30-5.90) m/uL Hgb (13.0-17.5) gm/dL Hct (39.0-53.0) % MCV (80.0-100.0) fL MCH (25.0-35.0) pg MCHC (31.0-37.0) g/dL RDW (11.5-15.5) % Plt Count (150-450) k/uL Neutrophils % % Lymphocytes % % Monocytes % % Eosinophils % % Basophils % % Neutrophils # (1.3-7.7) k/uL Lymphocytes # (1.0-4.8) k/uL Monocytes # (0-1.0) k/uL Eosinophils # (0-0.7) k/uL Basophils # (0-0.2) k/uL Sodium 143 (137-145) mmol/L Potassium 4.2 (3.5-5.1) mmol/L Chloride 106 (98-107) mmol/L Carbon Dioxide 27 (22-30) mmol/L Anion Gap 10 mmol/L BUN 27 H (9-20) mg/dL Creatinine 1.10 (0.66-1.25) mg/dL Est GFR (MDRD) Af Amer >60 (>60 ml/min/1.73 sqM) Est GFR (MDRD) Non-Af >60 (>60 ml/min/1.73 sqM) Glucose 148 H (74-99) mg/dL Calcium 10.0 (8.4-10.2) mg/dL Total Bilirubin 0.5 (0.2-1.3) mg/dL AST 17 (17-59) U/L ALT 30 (21-72) U/L Alkaline Phosphatase 102 (38-126) U/L Total Protein 7.3 (6.3-8.2) g/dL Albumin 4.5 (3.5-5.0) g/dL Urine Color Urine Appearance (Clear) Urine pH (5.0-8.0) Ur Specific [place] (1.001-1.035) Urine Protein (Negative) Urine Glucose (UA) (Negative) Urine Ketones (Negative) Urine Blood (Negative) Urine Nitrite (Negative) Urine Bilirubin (Negative) Urine Urobilinogen (<2.0) mg/dL Ur Leukocyte Esterase (Negative) Urine Opiates Screen (NotDetected) Ur Oxycodone Screen (NotDetected) Urine Methadone Screen (NotDetected) Ur Propoxyphene Screen (NotDetected) Ur Barbiturates Screen (NotDetected) U Tricyclic Antidepress (NotDetected) Ur Phencyclidine Scrn (NotDetected) Ur Amphetamines Screen (NotDetected) U Methamphetamines Scrn (NotDetected) U Benzodiazepines Scrn (NotDetected) Urine Cocaine Screen (NotDetected) U Marijuana (THC) Screen (NotDetected) Disposition Clinical Impression: Acute psychosis Disposition: TRANSFER TO PSYCH HOSP/UNIT Referrals: Jose Edge MD [Primary Care Provider] - 1-2 days Time of Disposition: 17:51
[2017-07-12 16:13] LABS: Amphetamine Screen,Urine Not Detected (NotDetected); Barbiturate Screen,Urine Not Detected (NotDetected); Benzodiazepines Screen,Urine Not Detected (NotDetected); Cocaine Screen,Urine Not Detected (NotDetected); Methadone Screen, Urine Not Detected (NotDetected); Opiate Screen,Urine Not Detected (NotDetected); Oxycodone Screen, Urine Not Detected (NotDetected); Phencyclidine Screen,Urine Not Detected (NotDetected); Tricyclic Antidepressant,Urine Not Detected (NotDetected); Urn Cannabinoid Scrn Not Detected (NotDetected)
[2017-07-12 17:11] LABS: Appearance,Urine Clear (Clear); Bilirubin,Urine Negative (Negative); Blood,Urine Negative (Negative); Color,Urine Yellow; Glucose,Urine (UA) Negative (Negative); Ketones,Urine Negative (Negative); Leukocyte Esterase,Urine Negative (Negative); Nitrite,Urine Negative (Negative); Protein,Urine Negative (Negative); Specific Gravity,Urine 1.014 (1.001-1.035)
[2017-07-12 17:22] LABS: Basophils # (A) 0.1 k/uL (0-0.2); Basophils % (A) 1 %; Eosinophils # (A) 0.4 k/uL (0-0.7); Eosinophils % (A) 5 %; HCT 43.2 % (39.0-53.0); HGB 14.3 gm/dL (13.0-17.5); Lymphocytes # (A) 1.6 k/uL (1.0-4.8); Lymphocytes % (A) 19 %; MCH 32.2 pg (25.0-35.0); MCHC 33.1 g/dL (31.0-37.0); MCV 97.3 fL (80.0-100.0); Mean Platelet Volume 8.3; Monocytes # (A) 0.5 k/uL (0-1.0); Monocytes % (A) 6 %; Neutrophils # (A) 5.5 k/uL (1.3-7.7); Neutrophils % (A) 68 %; Platelet Count 201 k/uL (150-450); RBC 4.44 m/uL (4.30-5.90); RDW 13.2 % (11.5-15.5); WBC 8.1 k/uL (3.8-10.6)
[2017-07-12 17:32] LABS: ALT 30 U/L (21-72); AST 17 U/L (17-59); Albumin 4.5 g/dL (3.5-5.0); Alkaline Phosphatase 102 U/L (38-126); Anion Gap 10 mmol/L; Blood Urea Nitrogen 27 mg/dL (9-20); Carbon Dioxide 27 mmol/L (22-30); Chloride 106 mmol/L (98-107); Glucose 148 mg/dL (74-99); Potassium 4.2 mmol/L (3.5-5.1); Sodium 143 mmol/L (137-145); Total Bilirubin 0.5 mg/dL (0.2-1.3); Total Protein 7.3 g/dL (6.3-8.2)
[2017-07-12] MEDS ORDERED: PERPHENAZINE 4 MG TAB PO STA (19:30)
[2017-07-12] MEDS ORDERED: glipiZIDE 10 MG TAB PO STA (19:30)
[2017-07-12] MEDS ORDERED: ATORVASTATIN 40 MG TAB PO STA (19:30)
[2017-07-12] MEDS ORDERED: LISINOPRIL-HCTZ 20-12.5 MG 1 EACH TAB PO STA (19:30)
[2017-07-12] MEDS ORDERED: ASPIRIN 81 MG PO STA (19:30)
[2017-07-12] MEDS ORDERED: TAMSULOSIN 0.4 MG CAP.ER.24H PO STA (19:30)
[2017-07-12] MEDS ORDERED: DIVALPROEX 500 MG TABLET.DR PO STA (19:30)
[2017-07-12 19:32] LABS: Glucose,Whole Blood 94 mg/dL (75-99)
[2017-07-12] MEDS ORDERED: AMANTADINE HCL 100 MG CAP PO STA (19:45)
[2017-07-12] MEDS ORDERED: INSULIN DETEMIR 100 UNIT/ML 10 ML VIAL SQ SCH (21:00)
[2017-07-12] MEDS ORDERED: MAGNESIUM HYDROXIDE 2,400 MG/10 ML CUP PO PRN (23:45)
[2017-07-12] MEDS ORDERED: MAG HYDROX/AL HYDROX/SIMETH 30 ML CUP PO PRN (23:45)
[2017-07-12] MEDS ORDERED: DEXTROSE PO PRN (23:47)
[2017-07-12] MEDS ORDERED: ALBUTEROL INHALER 60 PUFF/8 GM INHALER INHALATION PRN (23:47)
[2017-07-12] MEDS ORDERED: ALBUTEROL NEBULIZED 2.5 MG/3 ML INHALATION PRN (23:47)
[2017-07-13] MEDS: LORazepam 1 MG TAB PO PRN ×2 (00:31→15:00)
[2017-07-13 00:46] VITALS: BMI 27.1
[2017-07-13 07:01] LABS: Glucose,Whole Blood 84 mg/dL (75-99)
[2017-07-13] MEDS ORDERED: glipiZIDE 10 MG TAB PO SCH (07:30)
[2017-07-13 07:52] LABS: Basophils # (A) 0.1 k/uL (0-0.2); Basophils % (A) 1 %; Eosinophils # (A) 0.3 k/uL (0-0.7); Eosinophils % (A) 4 %; HCT 41.1 % (39.0-53.0); HGB 13.8 gm/dL (13.0-17.5); Lymphocytes # (A) 1.2 k/uL (1.0-4.8); Lymphocytes % (A) 19 %; MCH 32.6 pg (25.0-35.0); MCHC 33.6 g/dL (31.0-37.0); MCV 96.8 fL (80.0-100.0); Mean Platelet Volume 7.8; Monocytes # (A) 0.4 k/uL (0-1.0); Monocytes % (A) 7 %; Neutrophils # (A) 4.4 k/uL (1.3-7.7); Neutrophils % (A) 68 %; Platelet Count 203 k/uL (150-450); RBC 4.25 m/uL (4.30-5.90); WBC 6.4 k/uL (3.8-10.6)
[2017-07-13] MEDS: AMANTADINE HCL 100 MG CAP PO SCH ×2 (08:30→22:36)
[2017-07-13] MEDS: MECLIZINE 25 MG TAB PO SCH (08:30)
[2017-07-13] MEDS: PANTOPRAZOLE 40 MG TABLET PO SCH (08:30)
[2017-07-13] MEDS: PERPHENAZINE 4 MG TAB PO SCH ×3 (08:30→22:37)
[2017-07-13] MEDS: SERTRALINE 100 MG TAB PO SCH (08:30)
[2017-07-13] MEDS: NICOTINE 14MG/24HR PATCH TRANSDERM SCH (08:31)
[2017-07-13 08:45] LABS: Anion Gap 8 mmol/L; Blood Urea Nitrogen 29 mg/dL (9-20); Calcium 10.3 mg/dL (8.4-10.2); Carbon Dioxide 28 mmol/L (22-30); Chloride 104 mmol/L (98-107); Cholesterol 159 mg/dL (<200); Glucose 90 mg/dL (74-99); HDL Cholesterol 42 mg/dL (40-60); LDL Cholesterol,Calculated 93 mg/dL (0-99); Sodium 140 mmol/L (137-145); Triglycerides 121 mg/dL (<150)
[2017-07-13 08:57] LABS: Potassium 4.1 mmol/L (3.5-5.1)
[2017-07-13] MEDS ORDERED: PIOGLITAZONE 15 MG TAB PO SCH (09:00)
[2017-07-13] MEDS ORDERED: AMANTADINE HCL 100 MG CAP PO SCH (09:00)
[2017-07-13] MEDS: MULTIVITAMINS, THERA 1 EACH TAB PO SCH (11:56)
[2017-07-13] MEDS: CYANOCOBALAMIN 500 MCG TAB PO SCH (11:56)
[2017-07-13 12:04] LABS: Glucose,Whole Blood 49 mg/dL (75-99)
[2017-07-13 12:16] LABS: Glucose,Whole Blood 95 mg/dL (75-99)
[2017-07-13 17:26] LABS: Hemoglobin A1C 5.8 % (4.0-6.0)
[2017-07-13 17:55] LABS: Glucose,Whole Blood 52 mg/dL (75-99)
[2017-07-13 18:20] LABS: Glucose,Whole Blood 65 mg/dL (75-99)
[2017-07-13 18:36] LABS: Glucose,Whole Blood 85 mg/dL (75-99)
[2017-07-13] MEDS: ATORVASTATIN 40 MG TAB PO SCH (20:12)
[2017-07-13] MEDS: CHOLECALCIFEROL 1,000 UNIT TAB PO SCH (20:13)
[2017-07-13] MEDS: ASPIRIN 81 MG PO SCH (20:15)
[2017-07-13] MEDS: DIVALPROEX ER 500 MG TAB.ER.24H PO SCH (20:15)
[2017-07-13] MEDS: LISINOPRIL-HCTZ 20-12.5 MG 1 EACH TAB PO SCH (20:16)
[2017-07-13] MEDS: TAMSULOSIN 0.4 MG CAP.ER.24H PO SCH (20:16)
[2017-07-13 20:29] LABS: Glucose,Whole Blood 72 mg/dL (75-99)
[2017-07-13] MEDS ORDERED: DEXTROSE 4 GM CHEWABLE PO PRN (20:47)
[2017-07-13] MEDS ORDERED: INSULIN DETEMIR 100 UNIT/ML 10 ML VIAL SQ SCH (21:00)
[2017-07-13] MEDS ORDERED: NIACIN TR 500 MG CAPSULE.ER PO SCH (21:00)
[2017-07-13 22:22] LABS: Glucose,Whole Blood 77 mg/dL (75-99)
[2017-07-13] MEDS: INSULIN ASPART 100 UNIT/ML 1 ML 10 ML VIAL SQ SCH (22:23)
[2017-07-14] MEDS: LORazepam 1 MG TAB PO PRN ×2 (01:03→08:33)
[2017-07-14 02:11] LABS: Glucose,Whole Blood 155 mg/dL (75-99)
[2017-07-14 06:23] LABS: Glucose,Whole Blood 120 mg/dL (75-99)
[2017-07-14] MEDS: INSULIN ASPART 100 UNIT/ML 1 ML 10 ML VIAL SQ SCH ×4 (07:45→20:43)
--- NOTE | 2017-07-14 08:22 | HP ---
HISTORY AND PHYSICAL DATE OF SERVICE: 07/13/2017 IDENTIFYING DATA: The patient is a 67-year-old male. He lives with his . He presented to the emergency room with his . CHIEF COMPLAINT: The patient was confused. He was disorganized. He had flight of ideas. He was disconnected from his immediate environment. He was not sleeping. He was yelling and crying. He was admitted on petition for involuntary hospitalization. HISTORY OF PRESENT ILLNESS: The patient apparently has had long-term psychiatric issues. The patient himself was not able to provide much information. The best information available was an admission note and further admission records from a hospitalization here December 15, 2015. His attending psychiatrist was Dr. Perry. I refer to the admission note from that admission of Dr. Lucas for details. He is noted to be a . He was having problems with depression, paranoia, hallucinations and intermittent suicidal thinking. He apparently had some level of confusion and disorganized behavior. At that time, he was on Depakote. He has received psychiatric services through [facility]. Discharge psychotropic medications from that admission included Trilafon 8 mg twice a day, Depakote ER 500 mg twice a day and Cogentin 1 mg twice a day. Currently records indicate that the patient is on Trilafon 4 mg 3 times a day, Zoloft 100 mg a day, Depakote ER 1000 mg a day, amantadine 100 mg twice a day and Ativan 1 mg p.r.n. as his current psychotropic medications. The patient seemed to indicate that he was taking medications consistently. I assume from the emergency department note that his may have confirmed this. The patient does have a past history of substance abuse, though for the most part, my understanding is that this has been stable. The patient himself today says that he smokes marijuana "once in a while", and in regards to alcohol he says "not in years". He notes that he sees Samantha Mendoza NP at the [facility] and has an appointment on July 21. The patient does acknowledge that he was in some kind of a confused state, though he could not give any more details. He is admitted for further evaluation. SUBSTANCE USE HISTORY: The only information is as above. PAST MEDICAL HISTORY AND REVIEW OF SYSTEMS: As per medical consultation. Medical records indicate the patient has coronary artery disease, diabetes mellitus, hyperlipidemia, hypertension, and prostate disorder. FAMILY AND SOCIAL HISTORY: The only information I have is that he lives with his . He reported that his son brought him to the emergency room. MENTAL STATUS: Patient was restless. He gave fair eye contact. He answered questions with brief responses. He did tend to ramble some. His thoughts were disorganized. He answered some questions appropriately, though others his thoughts were tangential. His affect was somewhat limited. His mood dysphoric, was difficult to say how distressed he may feel. He did not evidence of thought disorder beyond his difficult thought process. On cognitive exam, he could tell me the day and date. He could tell me that he was in [facility]. He gave a few details of recent events. He did not make an effort to answer other formal cognitive questions. PHYSICAL EXAM: As per medical consultation. ASSESSMENT: This 67-year-old male is admitted for exacerbation of bipolar disorder with a history of schizophrenia. Precipitating factors are uncertain. I would recommend the reader refer to admission note, discharge summary and other records from the patient's admission of December 15, 2015 in this facility for details. DIAGNOSES: 1. Bipolar affect disorder. 2. History of schizophrenia. 3. Coronary artery disease. 4. Diabetes mellitus. 5. Hyperlipidemia. 6. Hypertension. RECOMMENDATIONS: Patient will be admitted for comprehensive medical psychiatric and psychosocial evaluation. We will engage the patient in individual and group therapeutic activities. I will continue the patient on his current psychotropic medications including Zoloft 100 mg a day, Trilafon 4 mg 3 times a day, Depakote ER 1000 mg a day, amantadine 100 mg twice a day and Ativan 1 mg p.r.n. We will need to coordinate with outpatient resources for further diagnostic and treatment planning. We will focus on stabilization and discharge planning. MMODL / IJN: [id number] /
[2017-07-14] MEDS: PANTOPRAZOLE 40 MG TABLET PO SCH (08:32)
[2017-07-14] MEDS: AMANTADINE HCL 100 MG CAP PO SCH ×2 (08:32→20:44)
[2017-07-14] MEDS: MECLIZINE 25 MG TAB PO SCH (08:32)
[2017-07-14] MEDS: NICOTINE 14MG/24HR PATCH TRANSDERM SCH (08:32)
[2017-07-14] MEDS: PERPHENAZINE 4 MG TAB PO SCH ×3 (08:33→20:44)
[2017-07-14] MEDS: SERTRALINE 100 MG TAB PO SCH (08:33)
--- NOTE | 2017-07-14 10:35 | CONS ---
CONSULTATION DATE OF SERVICE: 07/13/2017 REASON FOR CONSULTATION: Advice regarding diabetes mellitus and other multiple medical issues requested by Psychiatry. HISTORY OF PRESENT ILLNESS: This 67-year-old gentleman with past medical history of CAD, diabetes mellitus, hypertension, hyperlipidemia, history of prostate disorder, paranoid schizophrenia, PTSD being followed by Dr. Jose Edge and Cecil CORONEL in the outpatient setting was admitted for psychiatric evaluation. The patient was taking multiple anti medication under the direction of his according to him; but, however, after admission the patient had multiple episodes of hypoglycemia at 47 and 50. Oral hypoglycemics on hold at this time. TSH is 0.29. There is no history of fever, rigors. No history of headache, loss of consciousness or seizures. PAST MEDICAL HISTORY: History of CAD, diabetes, hypertension, hyperlipidemia, prostate disorder, paranoid schizophrenia, PTSD. MEDICATIONS: Medications prior to admission include home medications: 1. Flomax 0.8 q.h.s. 2. Niacin ER 500 mg daily. 3. Glucotrol 10 mg a.c. b.i.d. 4. Meclizine 25 mg b.i.d. 5. Depakote ER 1000 mg q.h.s. 6. Vitamin B12, 1000 mcg daily. 7. Tylenol 650 . 8. Zoloft 100 mg daily. 9. Actos 15 mg p.o. daily. 10.Trilafon 4 mg p.o. t.i.d. 11.Prilosec 20 mg p.o. daily. 12.Multivitamins 1 p.o. daily. 13.Lisinopril hydrochlorothiazide 1 tab q.h.s. 14.Ativan 1 mg q.6 p.r.n. 15.Lantus 48 units subcutaneously q.h.s. 16.Dextrose gel 15 daily p.r.n. 17.Vitamin D3, 5000 q.h.s. 18.Lipitor 40 mg q.h.s. 19.Ecotrin 81 mg q.h.s. 20.Symmetrel 100 mg p.o. b.i.d. 21.ProAir HFA 2 puffs q.i.d. p.r.n. 22.Ventolin inhaler also. ALLERGIES: ALCOHOL, NARCOTICS. FAMILY HISTORY: History of CVA, TIA, diabetes, myocardial infarction, alcohol abuse. SOCIAL HISTORY: History of alcohol intake. History of smoking and previous history of alcohol. REVIEW OF SYSTEMS: ENT: No diminished hearing or diminished vision. CARDIOVASCULAR: No angina. RESPIRATORY: As mentioned earlier. GI: As mentioned earlier. : No dysuria. NERVOUS SYSTEM: No numbness or weakness. ALLERGY/IMMUNOLOGY: No asthma or hayfever. MUSCULOSKELETAL: As mentioned earlier. HEMATOLOGY/ONCOLOGY: No history of anemia. ENDOCRINE: As mentioned earlier. CONSTITUTIONAL; As mentioned earlier. DERMATOLOGY: Negative. RHEUMATOLOGY: Negative. PSYCHIATRY: As mentioned earlier. PHYSICAL EXAMINATION: The patient is alert and oriented x3. Pulse is 83, blood pressure 156/82, respiration 18, temperature 98.4, pulse ox 99% on room air. HEENT: Conjunctivae normal. Oral mucosa is moist. Neck is no jugular venous distention. No carotid bruit. No lymph node enlargement. CARDIOVASCULAR: S1 and S2 muffled. No S3 or S4. RESPIRATORY: Breath sounds diminished at the bases. No rhonchi, no crackles. ABDOMEN: Soft, obese, nontender. No mass palpable. LEGS: No edema, no cyanosis. NERVOUS SYSTEM: Higher function as mentioned earlier. Moves all 4 limbs. No focal deficits. LYMPHATICS: No lymphadenopathy of the neck, axillae or groin. SKIN: No ulcer, rash or bleeding. LABS: WBC 6.4, hemoglobin 13.8. Accu-Cheks 90, 49, 95. TSH 0.29. ASSESSMENT: 1. Diabetes mellitus type 2 with hypoglycemia. 2. Decreased TSH. 3. History of EtOH. 4. History of coronary artery disease. 5. Diabetes mellitus. 6. History of nicotine dependence. 7. Hyperlipidemia. 8. Hypertension. 9. History of paranoid schizophrenia. 10.History of coronary artery disease, stent. 11.Posttraumatic stress disorder. 12.Schizophrenia. 13.History of THC. RECOMMENDATIONS AND DISCUSSION: This 67-year-old gentleman presented with multiple complex medical issues, at this time I recommend to continue current medications. Continue symptomatic treatment. Patient has got significant hypoglycemia. It is not clear whether the patient is taking extra dose of hypoglycemic. At this time I would recommend to stop the oral diabetic medications. Do the Accu-Cheks a.c. and at bedtime and scale only at this time, otherwise when the blood sugars are getting elevated then the home medication may be restarted. Otherwise monitor for blood sugars closely and use dextrose on a p.r.n. basis. Continue the rest of medications. We will follow the patient closely with you and Dr. Jose Edge will follow. Thank you for letting us participate in the care of this patient. GUILLERMOL / GERSONN: [id number] / MTDD
[2017-07-14 11:33] LABS: Glucose,Whole Blood 187 mg/dL (75-99)
[2017-07-14] MEDS: CYANOCOBALAMIN 500 MCG TAB PO SCH (12:23)
[2017-07-14] MEDS: MULTIVITAMINS, THERA 1 EACH TAB PO SCH (12:24)
[2017-07-14 14:24] LABS: Glucose,Whole Blood 139 mg/dL (75-99)
--- NOTE | 2017-07-14 15:20 | P.PN ---
Progress Note - Text Date of service: 07/14/2017 Chief complaint: "I'm very anxious and I want to leave he " Subjective: The patient has been seen today as follow-up, chart reviewed, case discussed with the treatment team. Patient slept about interrupted 6-7 hours hours last night. Patient has been going to groups and other unit activities. Patient reports fair appetite problems. The patient reported has been feeling increasingly anxious about leaving the hospital. He reported sometimes hears voices and sometimes sees people at the corner playing guitar. The patient presented with disorganized speech and he was laughing inappropriately. He denies any suicidal or homicidal thoughts. The patient is compliant with his medications and denies any adverse reactions. Review of other systems: Patient denies any physical symptoms besides what has been mentioned above. No breathing problems, no chest pain reported today. Objective: Vitals has been reviewed. Mental status examination; Appearance: The patient appears stated age, disheveled and poorly groomed, no specific features. Gait/posture: Slow gait, Normal arm swinging: No abnormal movements. Attitude and behavior: Not fully engaged, cooperative, interrupted eye contact. Motor activity: Increased psychomotor activity Speech: Loud and disorganized Mood: Anxious, irritable Affect: Labile Thought form: Racing thoughts, flight of ideas, disorganized. Thought content: denies suicidal thoughts, denies homicidal thoughts, denies intentions or plans. Perception: Reported auditory or visual hallucinations Attention: Impaired. Orientation: Patient patient was fully oriented to time place person and situation. Insight: Patient has limited insight about his psychiatric disorder. Judgment: Patient has limited judgment about his psychiatric treatment. Assessment: Bipolar disorder Rule out alcohol use disorder Rule out PTSD Plan: Continue with inpatient psychiatric hospitalization for monitoring and continue treatment. Continue group therapy and other unit activities. Continue psychiatric medications: Depakote 1000 mg at bedtime as a mood stabilizer, Trilafon grams 3 times a day for psychotic symptoms, Zoloft 100 mg daily for depression and anxiety. Obtain folic acid and vitamin B12 level. Start thiamine to 250 mg IM daily for 3 days and followed by 100 mg by mouth daily
[2017-07-14] MEDS: THIAMINE 100 MG/ML 2 ML VIAL IM SCH (16:05)
[2017-07-14 17:45] LABS: Glucose,Whole Blood 118 mg/dL (75-99)
[2017-07-14] MEDS: ACETAMINOPHEN TAB 325 MG TAB PO PRN (19:51)
[2017-07-14 20:11] LABS: Glucose,Whole Blood 243 mg/dL (75-99)
[2017-07-14] MEDS: INSULIN DETEMIR 100 UNIT/ML 10 ML VIAL SQ SCH (20:43)
[2017-07-14] MEDS: ATORVASTATIN 40 MG TAB PO SCH (20:44)
[2017-07-14] MEDS: DIVALPROEX ER 500 MG TAB.ER.24H PO SCH (20:44)
[2017-07-14] MEDS: ASPIRIN 81 MG PO SCH (20:44)
[2017-07-14] MEDS: LISINOPRIL-HCTZ 20-12.5 MG 1 EACH TAB PO SCH (20:44)
[2017-07-14] MEDS: CHOLECALCIFEROL 1,000 UNIT TAB PO SCH (20:44)
[2017-07-14] MEDS: TAMSULOSIN 0.4 MG CAP.ER.24H PO SCH (20:44)
[2017-07-14] MEDS: NIACIN TR 250 MG CAPSULE.ER PO SCH (20:45)
[2017-07-15] MEDS: LORazepam 1 MG TAB PO PRN ×3 (00:24→23:23)
[2017-07-15 06:27] LABS: Glucose,Whole Blood 107 mg/dL (75-99)
[2017-07-15] MEDS: INSULIN ASPART 100 UNIT/ML 1 ML 10 ML VIAL SQ SCH ×4 (07:45→21:46)
[2017-07-15] MEDS: AMANTADINE HCL 100 MG CAP PO SCH ×2 (08:54→21:17)
[2017-07-15] MEDS: PERPHENAZINE 4 MG TAB PO SCH ×3 (08:54→21:16)
[2017-07-15] MEDS: MECLIZINE 25 MG TAB PO SCH (08:54)
[2017-07-15] MEDS: NICOTINE 14MG/24HR PATCH TRANSDERM SCH (08:55)
[2017-07-15] MEDS: THIAMINE 100 MG/ML 2 ML VIAL IM SCH (08:55)
[2017-07-15] MEDS: PANTOPRAZOLE 40 MG TABLET PO SCH (08:56)
[2017-07-15] MEDS: SERTRALINE 100 MG TAB PO SCH (08:56)
--- NOTE | 2017-07-15 11:16 | P.PN ---
Progress Note - Text Interval history: The patient is found in the hallway he follows me to an interview room. He was admitted for agitated behavior and acute symptoms of psychosis. He indicates he has a psychiatrist with the [facility]. He is currently prescribed Trilafon, Depakote, Symmetrel, Zoloft. He indicates that he had not gone off his medication prior to admission. He is somewhat disorganized in his presentation and is a limited historian. He is focused on being discharged and continues to raise that topic during the course of our session. He minimizes presenting symptoms. During treatment team meeting staff share that the patient appears quite disorganized in the milieu and several months ago apparently had demonstrated some aggressive behavior with his . There is a question as to whether or not he is experiencing progressive neurocognitive disorder symptoms as well. Mental status exam: The patient is alert he is directable. He is a disheveled appearance he is dressed in his own clothing. He is oriented to person place and date. He struggles with identifying why he is here in the hospital. He has difficulty expressing linear thoughts at times. He reports having no suicidal or homicidal thoughts. It appears he does have some disorganized symptoms of psychosis. He demonstrates no verbal or physical aggressiveness during the session. Insight and judgment impaired. Plan: The patient will continue on his current prescribed medications. cut and cover line worker has been trying to reach the patient's for collateral information. We will try to make contact with his outpatient psychiatric prescriber as well. If it has not been done I will order a Depakote level. Vital signs reviewed. We will monitor him for safety and encourage his participation in the milieu
[2017-07-15 11:43] LABS: T4, Free (Free Thyroxine) 1.38 ng/dL (0.78-2.19)
[2017-07-15] MEDS: CYANOCOBALAMIN 500 MCG TAB PO SCH (11:45)
[2017-07-15] MEDS: MULTIVITAMINS, THERA 1 EACH TAB PO SCH (11:45)
[2017-07-15 11:54] LABS: Glucose,Whole Blood 112 mg/dL (75-99)
[2017-07-15 14:13] LABS: Glucose,Whole Blood 211 mg/dL (75-99)
[2017-07-15 18:00] LABS: Glucose,Whole Blood 108 mg/dL (75-99)
--- NOTE | 2017-07-15 18:36 | P.PN ---
Subjective Patient is ambulating freely in the unit. Had discussion with patient regarding his diabetes. Was found to be under control this time Objective - Vital Signs Vital signs: Vital Signs Temp 97.8 F 07/15/17 00:51 Pulse 100 07/15/17 15:17 Resp 18 07/15/17 15:17 BP 151/66 07/15/17 15:17 Pulse Ox 99 07/12/17 23:01 - Constitutional General appearance: Present: average body habitus - EENT Eyes: Present: PERRLA Ears: bilateral: normal - Neck Neck: Present: normal ROM - Respiratory Respiratory: bilateral: CTA - Cardiovascular Rhythm: regular - Gastrointestinal General gastrointestinal: Present: soft - Integumentary Integumentary: Present: normal - Neurologic Neurologic: Present: CNII-XII intact - Psychiatric Psychiatric: Present: A&O x's 3, appropriate affect - Labs CBC & Chem 7: 07/13/17 07:28 07/13/17 07:28 Labs: Abnormal Lab Results - Last 24 Hours (Table) 07/14/17 07/15/17 07/15/17 Range/Units 20:10 06:08 11:43 POC Glucose (mg/dL) 243 H 107 H 112 H (75-99) mg/dL 07/15/17 07/15/17 Range/Units 14:09 17:56 POC Glucose (mg/dL) 211 H 108 H (75-99) mg/dL Assessment and Plan Plan: Assessment Diabetes type 2 with hyperglycemia Decreased TSH History of alcoholism History of nicotine dependence Hyperlipidemia hypertension paranoid schizophrenia History of coronary disease with stent post reticulocyte stress disorder History of THC Plan We will continue to monitor blood sugars States he has an appointment with [facility] in 07-21-17
[2017-07-15 20:28] LABS: Glucose,Whole Blood 157 mg/dL (75-99)
[2017-07-15] MEDS: LISINOPRIL-HCTZ 20-12.5 MG 1 EACH TAB PO SCH (21:16)
[2017-07-15] MEDS: DIVALPROEX ER 500 MG TAB.ER.24H PO SCH (21:16)
[2017-07-15] MEDS: ATORVASTATIN 40 MG TAB PO SCH (21:16)
[2017-07-15] MEDS: CHOLECALCIFEROL 1,000 UNIT TAB PO SCH (21:16)
[2017-07-15] MEDS: TAMSULOSIN 0.4 MG CAP.ER.24H PO SCH (21:16)
[2017-07-15] MEDS: ASPIRIN 81 MG PO SCH (21:17)
[2017-07-15] MEDS: NIACIN TR 250 MG CAPSULE.ER PO SCH (21:17)
[2017-07-15] MEDS: INSULIN DETEMIR 100 UNIT/ML 10 ML VIAL SQ SCH (21:47)
[2017-07-15] MEDS: ACETAMINOPHEN TAB 325 MG TAB PO PRN (23:16)
[2017-07-16 06:36] LABS: Glucose,Whole Blood 145 mg/dL (75-99)
[2017-07-16] MEDS: THIAMINE 100 MG/ML 2 ML VIAL IM SCH (08:14)
[2017-07-16] MEDS: INSULIN ASPART 100 UNIT/ML 1 ML 10 ML VIAL SQ SCH ×4 (08:14→20:13)
[2017-07-16] MEDS: SERTRALINE 100 MG TAB PO SCH (08:15)
[2017-07-16] MEDS: PERPHENAZINE 4 MG TAB PO SCH ×3 (08:15→20:46)
[2017-07-16] MEDS: PANTOPRAZOLE 40 MG TABLET PO SCH (08:15)
[2017-07-16] MEDS: AMANTADINE HCL 100 MG CAP PO SCH ×2 (08:15→20:45)
[2017-07-16] MEDS: MECLIZINE 25 MG TAB PO SCH (08:15)
[2017-07-16] MEDS: NICOTINE 14MG/24HR PATCH TRANSDERM SCH (08:16)
--- NOTE | 2017-07-16 09:52 | P.PN ---
Progress Note - Text Interval history: The patient is found at the front end assistant he follows me to an interview room. He reports that his moods improved and he is hoping to be discharged tomorrow. I did speak with his via phone this morning with the patient's expressed permission. She states that he is sounding "like the old [place] again". She states prior to presentation he was just having a "breakdown ". She does not recall him making any statements of wanting to harm himself or anyone else. She indicated that he was eating and bathing appropriately. She believes he was taking his medication but isn't certain. She was not able to provide much information related to other medication trials in the past. Mental status exam: The patient's reports his mood is okay he is hoping to be discharged soon. He states he slept well last night appetite is stable. He indicates he wants to shower. He is oriented to person place and date. He is able to name 5 major cities [facility] he is able to name the months of the year backwards but omits August. He was able to register 3 words and he was able to spontaneously recall them 3 minutes later. He demonstrates no verbal or physical aggressiveness. He demonstrates some disorganization of thought but does answer questions asked of him. He indicates that it's possible he may be starting to demonstrate signs of "dementia", he states "it runs in my family ". He reports experiencing no auditory or visual hallucinations. He states in general he feels safe but he would prefer to get out of [place] in be back home. Plan: The patient will continue on his current psychotropic medications. The patient is asking to be discharged. His feels that he has improved since admission and is comfortable with him coming home tomorrow. We will discuss his progress over the last 24 hours during treatment team meeting today. Vital signs reviewed. The patient's states that the patient has had a noticeable decline of memory and concentration over the last few years and she agrees it may be due to a neurocognitive disorder process.
[2017-07-16 10:00] LABS: Valproic Acid (Depakene) 50.5 ug/mL
[2017-07-16] MEDS: MULTIVITAMINS, THERA 1 EACH TAB PO SCH (12:08)
[2017-07-16] MEDS: CYANOCOBALAMIN 500 MCG TAB PO SCH (12:11)
[2017-07-16 12:20] LABS: Glucose,Whole Blood 109 mg/dL (75-99)
[2017-07-16 17:21] LABS: Glucose,Whole Blood 142 mg/dL (75-99)
[2017-07-16] MEDS: LORazepam 1 MG TAB PO PRN (17:27)
[2017-07-16 20:08] LABS: Glucose,Whole Blood 174 mg/dL (75-99)
[2017-07-16] MEDS: ATORVASTATIN 40 MG TAB PO SCH (20:45)
[2017-07-16] MEDS: CHOLECALCIFEROL 1,000 UNIT TAB PO SCH (20:45)
[2017-07-16] MEDS: ASPIRIN 81 MG PO SCH (20:45)
[2017-07-16] MEDS: DIVALPROEX ER 500 MG TAB.ER.24H PO SCH (20:46)
[2017-07-16] MEDS: TAMSULOSIN 0.4 MG CAP.ER.24H PO SCH (20:46)
[2017-07-16] MEDS: NIACIN TR 250 MG CAPSULE.ER PO SCH (20:46)
[2017-07-16] MEDS: LISINOPRIL-HCTZ 20-12.5 MG 1 EACH TAB PO SCH (20:46)
[2017-07-16] MEDS: INSULIN DETEMIR 100 UNIT/ML 10 ML VIAL SQ SCH (20:47)
[2017-07-17 01:27] VITALS: BP 95/58; PULSE 102; RESP 18; TEMP 97.7
[2017-07-17 06:26] LABS: Glucose,Whole Blood 147 mg/dL (75-99)
[2017-07-17] MEDS: INSULIN ASPART 100 UNIT/ML 1 ML 10 ML VIAL SQ SCH ×2 (07:35→12:36)
[2017-07-17] MEDS: MECLIZINE 25 MG TAB PO SCH (09:25)
[2017-07-17] MEDS: NICOTINE 14MG/24HR PATCH TRANSDERM SCH (09:25)
[2017-07-17] MEDS: SERTRALINE 100 MG TAB PO SCH (09:25)
[2017-07-17] MEDS: PERPHENAZINE 4 MG TAB PO SCH (09:25)
[2017-07-17] MEDS: PANTOPRAZOLE 40 MG TABLET PO SCH (09:25)
[2017-07-17] MEDS: AMANTADINE HCL 100 MG CAP PO SCH (09:25)
[2017-07-17] MEDS: THIAMINE 100 MG/ML 2 ML VIAL IM SCH (09:31)
--- NOTE | 2017-07-17 10:52 | P.DS ---
Providers Date of admission: 07/12/17 22:52 Expected date of discharge: 07/17/17 Attending physician: Dex Flowers Consults: 07/12/17 23:45 Consult Physician Routine Consulting Provider: Jose Edge Consult Reason/Comments: H and P, eval and tx r/o metabolic disorder Do you want consulting provider notified?: Yes, Notify in am Primary care physician: Jose Edge - Discharge Diagnosis(es) (1) Schizoaffective disorder, bipolar type Current Visit: Yes Status: Acute Priority: High Hospital Course: brief summary of admission note: This patient is a 67-year-old male who was admitted to the mental health unit through the emergency room due to confusion thought disorganization poor sleep and agitated behavior. The patient has a history of what appears to be schizoaffective disorder. He was on this mental health unit in December 2015 for similar symptoms. He was evaluated by Dr. Ambrosio on 07/13/2017 please refer to his dictation for full detail. Summary of hospital course: The patient was admitted to the mental health unit he did sign in voluntarily. He was continued on his outpatient medications including Trilafon, Depakote ER, Zoloft, Symmetrel. I did order a Depakote level which was found to be approximately 50. During the time I cared for the patient he appeared to demonstrate some stabilization. He appears to have symptoms at baseline but his felt that he has improved her and the course of his stay. She is concerned that he likely has neurocognitive disorder symptoms that have been progressing over the last few years. He is part of the [facility] and sees a clinician in [place] and is scheduled to see her again on the ninth of this month. During the time I cared for the patient he demonstrated no agitated behavior he's been compliant with medications. He has participating in ADLs such as eating and bathing. He has indicated he doesn't want to stay in the hospital any longer. I did speak with his via phone yesterday and she feels that the patient has stabilized and is appropriate to return home. His is coming up for a support meeting this morning prior to discharge. Mental status exam: The patient is alert he is dressed in his own clothing. Hygiene is adequate. He is easily directable. He reports his mood is improved. He is reporting no suicidal or homicidal ideation intent or plan. He is endorsing no auditory or visual hallucinations. He is endorsing no specific delusions. Thought process can be linear at times he can be disorganized at times and this may be due to neurocognitive disorder symptoms. Insight and judgment in general have improved. He is oriented to person place and date. He demonstrates no verbal or physical aggressiveness. He demonstrates no abnormal involuntary movements. He demonstrates future oriented thinking and spontaneously states he is looking forward to his appointment with his behavioral health clinician with the [facility]. Impressions 1.schizoaffective disorder bipolar type, rule out neurocognitive disorder 2. Medical comorbidities including coronary artery disease, diabetes, hyperlipidemia, hypertension Plan: The patient will be discharged mental health unit today. He will return home residing with his . His will participate in a support meeting facilitated by social work 11:30 this morning. He will continue on Trilafon 4 mg 3 times daily, Symmetrel 100 mg twice daily, Depakote ER 1000 mg at bedtime, Zoloft 100 mg daily. There is no imminent safety risk he does not require continued psychiatric hospitalization he is appropriate for transition outpatient psychiatric care. He is instructed to return to the hospital with any acute safety concerns. Patient Condition at Discharge: Stable Plan - Discharge Summary New Discharge Prescriptions: New Nicotine 14Mg/24Hr Patch [Habitrol] 1 patch TRANSDERM DAILY #12 patch Continue Tamsulosin HCl [Flomax] 0.8 mg PO HS Lisinopril-Hctz 20-12.5 mg [Zestoretic 20-12.5] 1 tab PO HS Insulin Glargine [Lantus] 48 units SQ HS Omeprazole [PriLOSEC] 20 mg PO DAILY Atorvastatin [Lipitor] 40 mg PO HS Albuterol Nebulized [Ventolin Nebulized] 2.5 mg INHALATION RT-TID PRN PRN Reason: Shortness Of Breath Pioglitazone [Actos] 15 mg PO DAILY Dextrose Gel [Glutose 15 Gel] 15 gm PO DAILY PRN PRN Reason: LOW BLOOD SUGAR Cholecalciferol [Vitamin D3] 5,000 unit PO HS Aspirin EC [Ecotrin Low Dose] 81 mg PO HS Albuterol Sulfate [Proair Hfa] 2 puff INHALATION RT-QID PRN PRN Reason: Shortness Of Breath Multivitamins, Thera [Multivitamin (formulary)] 1 tab PO DAILY Cyanocobalamin (Vitamin B-12) [Vitamin B-12] 1,000 mcg PO DAILY Meclizine HCl 25 mg PO DAILY Niacin [Niacin ER] 500 mg PO DAILY Amantadine HCl [Symmetrel] 100 mg PO BID #60 cap Divalproex ER [Depakote ER] 1,000 mg PO HS #60 tab.er.24h Perphenazine [Trilafon] 4 mg PO TID #90 tab Sertraline HCl [Zoloft] 100 mg PO DAILY #30 tablet Discontinued LORazepam [Ativan] 1 mg PO Q6H PRN PRN Reason: Anxiety Acetaminophen [Tylenol] 650 mg PO QID PRN PRN Reason: Pain Discharge Medication List Insulin Glargine [Lantus] 48 units SQ HS 12/11/15 [History] Lisinopril-Hctz 20-12.5 mg [Zestoretic 20-12.5] 1 tab PO HS 12/11/15 [History] Tamsulosin HCl [Flomax] 0.8 mg PO HS 12/11/15 [History] Albuterol Nebulized [Ventolin Nebulized] 2.5 mg INHALATION RT-TID PRN 03/06/17 [ History] Atorvastatin [Lipitor] 40 mg PO HS 03/06/17 [History] Omeprazole [PriLOSEC] 20 mg PO DAILY 03/06/17 [History] Aspirin EC [Ecotrin Low Dose] 81 mg PO HS 04/01/17 [History] Cholecalciferol [Vitamin D3] 5,000 unit PO HS 04/01/17 [History] Dextrose Gel [Glutose 15 Gel] 15 gm PO DAILY PRN 04/01/17 [History] Pioglitazone [Actos] 15 mg PO DAILY 04/01/17 [History] Albuterol Sulfate [Proair Hfa] 2 puff INHALATION RT-QID PRN 07/12/17 [History] Cyanocobalamin (Vitamin B-12) [Vitamin B-12] 1,000 mcg PO DAILY 07/12/17 [ History] Meclizine HCl 25 mg PO DAILY 07/12/17 [History] Multivitamins, Thera [Multivitamin (formulary)] 1 tab PO DAILY 07/12/17 [History ] Niacin [Niacin ER] 500 mg PO DAILY 07/12/17 [History] Amantadine HCl [Symmetrel] 100 mg PO BID #60 cap 07/17/17 [Rx] Divalproex ER [Depakote ER] 1,000 mg PO HS #60 tab.er.24h 07/17/17 [Rx] Nicotine 14Mg/24Hr Patch [Habitrol] 1 patch TRANSDERM DAILY #12 patch 07/17/17 [ Rx] Perphenazine [Trilafon] 4 mg PO TID #90 tab 07/17/17 [Rx] Sertraline HCl [Zoloft] 100 mg PO DAILY #30 tablet 07/17/17 [Rx] Follow up Appointment(s)/Referral(s): Cecil [facility]ONEL [Other] - 07/21/17 1:00 pm (07/21/2017 @ 13:[facility] EX[facility] [phone] fax [phone] ) Jose Edge MD [Primary Care Provider] - 1-2 days Patient Instructions/Handouts: Brief Psychotic Disorder (DC), Type 1 Diabetes in Adults (DC), Hypoglycemia in a Person with Diabetes (DC) Activity/Diet/Wound Care/Special Instructions: Take all medications as prescribed. Keep your follow up appointment. Do not drink alcohol or use any medications not prescribed. Crisis number [phone].
[2017-07-17] MEDS: MULTIVITAMINS, THERA 1 EACH TAB PO SCH (11:37)
[2017-07-17] MEDS: CYANOCOBALAMIN 500 MCG TAB PO SCH (11:37)
[2017-07-18] MEDS ORDERED: THIAMINE 100 MG TAB PO SCH (08:00)
== END 2017-07-17 12:16 | disposition home or self-care (01) | DRG 885 ==
LOC: EC 14:43 → 3MHU 22:52
PROVIDERS: ADMIT Psychiatry & Neurology Psychiatry; ATTEND Psychiatry & Neurology Psychiatry
DX: F25.0 Schizoaffective disorder, bipolar type (principal); E11.649 Type 2 diabetes mellitus with hypoglycemia without coma; R45.851 Suicidal ideations; I25.10 Atherosclerotic heart disease of native coronary artery without angina pectoris; E78.5 Hyperlipidemia, unspecified; I10 Essential (primary) hypertension; R45.1 Restlessness and agitation; N42.9 Disorder of prostate, unspecified; F12.90 Cannabis use, unspecified, uncomplicated; F17.200 Nicotine dependence, unspecified, uncomplicated; F41.9 Anxiety disorder, unspecified; F32.9 Major depressive disorder, single episode, unspecified; F43.10 Post-traumatic stress disorder, unspecified; Z79.4 Long term (current) use of insulin; Z88.6 Allergy status to analgesic agent; Z79.899 Other long term (current) drug therapy; Z91.048 Other nonmedicinal substance allergy status; Z83.3 Family history of diabetes mellitus; Z82.49 Family history of ischemic heart disease and other diseases of the circulatory system; Z82.3 Family history of stroke; Z95.5 Presence of coronary angioplasty implant and graft; Z81.1 Family history of alcohol abuse and dependence
CPT/HCPCS: 36415; 80048; 80053; 80061; 80164; 80306; 81003; 82075; 82607; 82746; 83036; 84439; 84443; 84450; 84460; 84481; 85025; 93005; 99285

== ENCOUNTER 2017-07-21 11:37 | Observation (INO) | payer OTHER, MEDICARE ==
[2017-07-21 12:07] LABS: Glucose,Whole Blood 198 mg/dL (75-99)
[2017-07-21] MEDS ORDERED: SODIUM CHLORIDE 0.9% 1,000 ML IV STA ×2 (12:38)
[2017-07-21] MEDS ORDERED: IPRATROPIUM-ALBUTEROL 3 ML NEB INHALATION STA (12:39)
[2017-07-21] MEDS ORDERED: ACETAMINOPHEN TAB 500 MG TAB PO STA (13:40)
--- NOTE | 2017-07-21 13:40 | ED ---
Seizure HPI - General Chief Complaint: Seizure Stated Complaint: Poss.seizure Time Seen by Provider: 07/21/17 12:13 Source: patient, family, RN notes reviewed, old records reviewed Mode of arrival: wheelchair Limitations: no limitations - History of Present Illness Initial Comments: 67-year-old male presents emergency Department chief complaint of seizure-like activity while he was driving home with his . Patient reports that he was the passenger seat, eating his burrito point he had a tonic-clonic like episode lasted approximately 2 minutes. Patient's brought him straight to the emergency department after this occurred. Patient reports he did not hit his head on anything, he does complain of severe frontal headache at this time. Patient is on Depakote, and multiple depression medications. He reports that he has a history of alcoholism, but he reports these been sober for 30 years. Patient states that he has had no recent fever or chills, denies any other symptoms including neck pain, chest pain or shortness of breath. He reports that he is chronically somewhat short of breath. - Related Data Home Medications Medication Instructions Recorded Confirmed Insulin Glargine [Lantus] 48 units SQ HS 12/11/15 07/21/17 Lisinopril-Hctz 20-12.5 mg 1 tab PO HS 12/11/15 07/21/17 [Zestoretic 20-12.5] Tamsulosin HCl [Flomax] 0.8 mg PO HS 12/11/15 07/21/17 Albuterol Nebulized [Ventolin 2.5 mg INHALATION RT-TID PRN 03/06/17 07/21/17 Nebulized] Atorvastatin [Lipitor] 40 mg PO HS 03/06/17 07/21/17 Omeprazole [PriLOSEC] 20 mg PO DAILY 03/06/17 07/21/17 Aspirin EC [Ecotrin Low Dose] 81 mg PO HS 04/01/17 07/21/17 Cholecalciferol [Vitamin D3] 5,000 unit PO HS 04/01/17 07/21/17 Dextrose Gel [Glutose 15 Gel] 15 gm PO DAILY PRN 04/01/17 07/21/17 Pioglitazone [Actos] 15 mg PO DAILY 04/01/17 07/21/17 Albuterol Sulfate [Proair Hfa] 2 puff INHALATION RT-QID PRN 07/12/17 07/21/17 Cyanocobalamin (Vitamin B-12) 1,000 mcg PO DAILY 07/12/17 07/21/17 [Vitamin B-12] Meclizine HCl 25 mg PO DAILY 07/12/17 07/21/17 Multivitamins, Thera [Multivitamin 1 tab PO DAILY 07/12/17 07/21/17 (formulary)] Niacin [Niacin ER] 500 mg PO DAILY 07/12/17 07/21/17 Previous Rx's Medication Instructions Recorded Amantadine HCl [Symmetrel] 100 mg PO BID #60 cap 07/17/17 Divalproex ER [Depakote ER] 1,000 mg PO HS #60 tab.er.24h 07/17/17 Nicotine 14Mg/24Hr Patch [Habitrol] 1 patch TRANSDERM DAILY #12 patch 07/17/17 Perphenazine [Trilafon] 4 mg PO TID #90 tab 07/17/17 Sertraline HCl [Zoloft] 100 mg PO DAILY #30 tablet 07/17/17 Allergies Allergy/AdvReac Type Severity Reaction Status Date / Time alcohol AdvReac Unknown Verified 07/21/17 13:04 narcotics AdvReac Unknown Uncoded 07/21/17 11:45 Review of Systems ROS Statement: Those systems with pertinent positive or pertinent negative responses have been documented in the HPI. ROS Other: All systems not noted in ROS Statement are negative. 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 Living in a envirnoment with bed bugs(2012), no visualized on patient on admission. vertigo. 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 History of Any Multi-Drug Resistant Organisms: None Reported Past Surgical History: Heart Catheterization With Stent Additional Past Surgical History / Comment(s): Tumor removed from chest in 1972 , Cardiac stent placed in 2002 Past Anesthesia/Blood Transfusion Reactions: No Reported Reaction Date of Last Stent Placement:: 2002 Past Psychological History: PTSD, Schizophrenia Smoking Status: Current every day smoker Past Alcohol Use History: None Reported Past Drug Use History: None Reported - Past Family History Father Additional Family Medical History / Comment(s): Alcoholic Mother Family Medical History: CVA/TIA, Diabetes Mellitus, Myocardial Infarction (HI) Additional Family Medical History / Comment(s): Addiction Issues, Dementia Daughter(s) Family Medical History: Cancer Additional Family Medical History / Comment(s): Ovarian Cancer General Exam - General Exam Comments Initial Comments: this is a 67-year-old male. No distress. Limitations: no limitations General appearance: alert, in no apparent distress Head exam: Present: atraumatic, normocephalic, normal inspection Eye exam: Present: normal appearance, PERRL, EOMI. Absent: scleral icterus, conjunctival injection, periorbital swelling ENT exam: Present: normal exam, mucous membranes moist Neck exam: Present: normal inspection. Absent: tenderness, meningismus, lymphadenopathy Respiratory exam: Present: normal lung sounds bilaterally. Absent: respiratory distress, wheezes, rales, rhonchi, stridor Cardiovascular Exam: Present: regular rate, normal rhythm, normal heart sounds. Absent: systolic murmur, diastolic murmur, rubs, gallop, clicks GI/Abdominal exam: Present: soft, normal bowel sounds. Absent: distended, tenderness, guarding, rebound, rigid Extremities exam: Present: normal inspection, full ROM, normal capillary refill. Absent: tenderness, pedal edema, joint swelling, calf tenderness Back exam: Present: normal inspection Neurological exam: Present: alert, oriented X3, CN II-XII intact Course Vital Signs 07/21/17 07/21/17 07/21/17 11:41 13:38 14:31 Temperature 98.0 F 97.5 F L Pulse Rate 117 H 98 88 Respiratory 20 14 16 Rate Blood Pressure 113/66 122/60 129/72 O2 Sat by Pulse 97 99 100 Oximetry 07/21/17 15:00 Temperature Pulse Rate 78 Respiratory 16 Rate Blood Pressure O2 Sat by Pulse 100 Oximetry Medical Decision Making - Medical Decision Making 67-year-old male presents emergency Department chief complaint new-onset seizure. Patient's on multiple medications for mood disorders, including Depakote. Patient reports his been taking his medications as prescribed. Denies any other new symptoms prior to the seizure. He was ice passenger, when he started seizure witnessed by his . Patient reports ictal. CT brain is negative for any acute process. Some mild chronic changes noted. Patient's labwork was reviewed and negative for any acute process. He complains of a headache, was nauseated. Patient denies any fever or chills, denies any other symptoms. Patient will be admitted for an office time. Given a gram of Depakote. - Lab Data Result diagrams: 07/21/17 13:30 Lab Results 07/21/17 07/21/17 Range/Units 11:49 13:30 Sodium 139 (137-145) mmol/L Potassium 4.2 (3.5-5.1) mmol/L Chloride 102 (98-107) mmol/L Carbon Dioxide 25 (22-30) mmol/L Anion Gap 12 mmol/L BUN 33 H (9-20) mg/dL Creatinine 1.10 (0.66-1.25) mg/dL Est GFR (MDRD) Af Amer >60 (>60 ml/min/1.73 sqM) Est GFR (MDRD) Non-Af >60 (>60 ml/min/1.73 sqM) Glucose 208 H (74-99) mg/dL POC Glucose (mg/dL) 198 H (75-99) mg/dL POC Glu Road Machine Operator ID Stacy Nur Calcium 9.9 (8.4-10.2) mg/dL Total Bilirubin 0.7 (0.2-1.3) mg/dL AST 22 (17-59) U/L ALT 36 (21-72) U/L Alkaline Phosphatase 103 (38-126) U/L Total Protein 6.9 (6.3-8.2) g/dL Albumin 4.3 (3.5-5.0) g/dL Salicylates <1.0 mg/dL Acetaminophen <10.0 ug/mL Valproic Acid 39.8 ug/mL [place] <0.2 mmol/L Serum Alcohol <10 mg/dL - Radiology Data Radiology results: report reviewed EKG shows normal sinus, injury 87 bpm. OK interval 1:30 no seconds. QRS ration HMO seconds. QT QTc is 372/47 ms. Disposition Clinical Impression: New onset seizure Disposition: ADMITTED IP TO THIS HOSP Condition: Good Instructions: New-Onset Seizure in Adults (ED) Referrals: Jose Edge MD [Primary Care Provider] - 1-2 days Time of Disposition: 15:09
[2017-07-21] MEDS ORDERED: diphenhydrAMINE 50 MG/ML 1 ML VIAL IVP STA (13:41)
[2017-07-21] MEDS ORDERED: METOCLOPRAMIDE 5 MG/ML 2 ML VIAL IVP STA (13:41)
[2017-07-21 13:51] LABS: Basophils % (A) 1 %; Eosinophils # (A) 0.1 k/uL (0-0.7); Eosinophils % (A) 2 %; HCT 40.7 % (39.0-53.0); HGB 13.4 gm/dL (13.0-17.5); Lymphocytes # (A) 0.5 k/uL (1.0-4.8); Lymphocytes % (A) 7 %; MCH 31.3 pg (25.0-35.0); MCV 94.7 fL (80.0-100.0); Mean Platelet Volume 8.5; Monocytes # (A) 0.4 k/uL (0-1.0); Monocytes % (A) 6 %; Neutrophils # (A) 6.2 k/uL (1.3-7.7); Neutrophils % (A) 84 %; Platelet Count 212 k/uL (150-450); RDW 13.8 % (11.5-15.5); WBC 7.4 k/uL (3.8-10.6)
[2017-07-21 14:04] LABS: ALT 36 U/L (21-72); AST 22 U/L (17-59); Acetaminophen <10.0 ug/mL; Albumin 4.3 g/dL (3.5-5.0); Alcohol <10 mg/dL; Alkaline Phosphatase 103 U/L (38-126); Anion Gap 12 mmol/L; Blood Urea Nitrogen 33 mg/dL (9-20); Calcium 9.9 mg/dL (8.4-10.2); Carbon Dioxide 25 mmol/L (22-30); Chloride 102 mmol/L (98-107); Glucose 208 mg/dL (74-99); Lithium <0.2 mmol/L; Potassium 4.2 mmol/L (3.5-5.1); Salicylate <1.0 mg/dL; Sodium 139 mmol/L (137-145); Total Bilirubin 0.7 mg/dL (0.2-1.3); Total Protein 6.9 g/dL (6.3-8.2)
--- NOTE | 2017-07-21 14:05 | CT ---
EXAMINATION TYPE: CT brain wo con DATE OF EXAM: 07/21/2017 COMPARISON: NONE INDICATION: seizure DLP: 1204 mGycm, Automated exposure control for dose reduction was used. CONTRAST: None CT of the brain is performed utilizing 3 mm thick sections through the posterior fossa and 3 mm thick sections through the remaining calvarium. Study is performed within 24 hours of arrival to the hosp [facility]. No abnormal hyperdensity is present to suggest an acute intracranial hemorrhage. No mass lesion is evident. No acute infarcts are evident. Ventricles and sulci are minimally prominent for the patient age. There is some prominence of the ex tra-axial spaces. No mass effect is evident. No midline shift is evident. No temporal horn dilatation is present. Paranasal sinuses and mastoid air cells within the [id number] are clear. IMPRESSIONS: 1. Mild age-related atrophy
[2017-07-21 14:09] LABS: Valproic Acid (Depakene) 39.8 ug/mL
[2017-07-21] MEDS ORDERED: NALOXONE 0.4 MG/ML 1 ML VIAL IV PRN (15:11)
[2017-07-21] MEDS ORDERED: ONDANSETRON 4 MG/2 ML VIAL IVP PRN (15:11)
[2017-07-21] MEDS ORDERED: DIVALPROEX 500 MG TABLET.DR PO STA (15:13)
[2017-07-21] MEDS ORDERED: SODIUM CHLORIDE 0.9% 1,000 ML IV SCH (15:15)
[2017-07-21 16:23] VITALS: RESP 16
[2017-07-21 18:08] VITALS: BP 144/77; PULSE 83; TEMP 97.8
[2017-07-21] MEDS ORDERED: ALBUTEROL INHALER 60 PUFF/8 GM INHALER INHALATION PRN (18:09)
[2017-07-21] MEDS ORDERED: ALBUTEROL NEBULIZED 2.5 MG/3 ML INHALATION PRN (18:09)
[2017-07-21] MEDS ORDERED: DIVALPROEX ER 500 MG TAB.ER.24H PO SCH (21:00)
[2017-07-21] MEDS ORDERED: INSULIN DETEMIR 100 UNIT/ML 10 ML VIAL SQ SCH (21:00)
[2017-07-21] MEDS ORDERED: ATORVASTATIN 40 MG TAB PO SCH (21:00)
[2017-07-21] MEDS ORDERED: LISINOPRIL-HCTZ 20-12.5 MG 1 EACH TAB PO SCH (21:00)
[2017-07-21] MEDS ORDERED: TAMSULOSIN 0.4 MG CAP.ER.24H PO SCH (21:00)
[2017-07-21] MEDS ORDERED: CHOLECALCIFEROL 1,000 UNIT TAB PO SCH (21:00)
[2017-07-21] MEDS ORDERED: AMANTADINE HCL 100 MG CAP PO SCH (21:00)
[2017-07-21] MEDS ORDERED: PERPHENAZINE 4 MG TAB PO SCH (22:00)
[2017-07-22] MEDS ORDERED: NON-FORMULARY DRUG (Omeprazole 20 MG) PO SCH (09:00)
[2017-07-22] MEDS ORDERED: PANTOPRAZOLE 40 MG/10 ML VIAL IV SCH (09:00)
[2017-07-22] MEDS ORDERED: MECLIZINE 25 MG TAB PO SCH (09:00)
[2017-07-22] MEDS ORDERED: MULTIVITAMINS, THERA 1 EACH TAB PO SCH (09:00)
[2017-07-22] MEDS ORDERED: SERTRALINE 100 MG TAB PO SCH (09:00)
[2017-07-22] MEDS ORDERED: PIOGLITAZONE 15 MG TAB PO SCH (09:00)
[2017-07-22] MEDS ORDERED: CYANOCOBALAMIN 500 MCG TAB PO SCH (09:00)
[2017-07-22] MEDS ORDERED: NIACIN TR 500 MG CAPSULE.ER PO SCH (09:00)
== END 2017-07-21 19:18 | disposition left against medical advice (07) ==
LOC: EC 11:37 → 5MS5E 16:26
PROVIDERS: ADMIT Family Medicine; ATTEND Family Medicine
DX: G40.409 Other generalized epilepsy and epileptic syndromes, not intractable, without status epilepticus (principal); F10.21 Alcohol dependence, in remission; R06.02 Shortness of breath; I25.10 Atherosclerotic heart disease of native coronary artery without angina pectoris; I10 Essential (primary) hypertension; E78.5 Hyperlipidemia, unspecified; E11.9 Type 2 diabetes mellitus without complications; N42.9 Disorder of prostate, unspecified; F20.0 Paranoid schizophrenia; M13.842 Other specified arthritis, left hand; F43.10 Post-traumatic stress disorder, unspecified; F17.200 Nicotine dependence, unspecified, uncomplicated; Z95.5 Presence of coronary angioplasty implant and graft; Z79.4 Long term (current) use of insulin; Z79.899 Other long term (current) drug therapy; Z79.82 Long term (current) use of aspirin; Z79.84 Long term (current) use of oral hypoglycemic drugs; Z88.5 Allergy status to narcotic agent; Z88.9 Allergy status to unspecified drugs, medicaments and biological substances; Z82.49 Family history of ischemic heart disease and other diseases of the circulatory system
CPT/HCPCS: 96361 ×2; 96374; 96375; 99285; 36415; 94640; 93005; 80164; 80053; 80178; 85025; 83520 ×2; 80320; 70450; G0378; J1200; J2765

== ENCOUNTER 2017-10-16 03:07 | Emergency (ER) | payer MEDICARE, OTHER ==
[2017-10-16] MEDS ORDERED: SODIUM CHLORIDE 0.9% 1,000 ML IV STA ×2 (03:41→06:03)
[2017-10-16] MEDS ORDERED: LORazepam 2 MG/ML INJ IV STA ×2 (03:41→14:42)
--- NOTE | 2017-10-16 03:50 | ED ---
General Adult HPI - General Source: patient, family, RN notes reviewed, old records reviewed Mode of arrival: ambulatory Limitations: no limitations <Alfonso Dalal - Last Filed: 10/16/17 03:49> <Xavier Johnson - Last Filed: 10/16/17 17:40> <Xavier Quinn - Last Filed: 10/16/17 18:56> - General Chief complaint: Psychiatric Symptoms Stated complaint: Mental Health Time Seen by Provider: 10/16/17 03:31 - History of Present Illness Initial comments: This is a 67-year-old male brought in for psychiatric evaluation. Patient brought in for psychiatric evaluation by PD for altered mental state, and appropriate.. Patient has history of mental health (Alfonso Dalal) - Related Data Home Medications Medication Instructions Recorded Confirmed Insulin Glargine [Lantus] 48 units SQ HS 12/11/15 10/16/17 Lisinopril-Hctz 20-12.5 mg 1 tab PO HS 12/11/15 10/16/17 [Zestoretic 20-12.5] Tamsulosin HCl [Flomax] 0.8 mg PO HS 12/11/15 10/16/17 Albuterol Nebulized [Ventolin 2.5 mg INHALATION RT-TID PRN 03/06/17 10/16/17 Nebulized] Atorvastatin [Lipitor] 20 mg PO HS 03/06/17 10/16/17 Omeprazole [PriLOSEC] 20 mg PO DAILY 03/06/17 10/16/17 Niacin [Niacin ER] 500 mg PO DAILY 07/12/17 10/16/17 Albuterol Inhaler [Ventolin Hfa 2 puff INHALATION RT-QID PRN 10/16/17 10/16/17 Inhaler] Meloxicam [Mobic] 7.5 mg PO DAILY 10/16/17 10/16/17 glipiZIDE [Glucotrol] 10 mg PO AC-BID 10/16/17 10/16/17 Previous Rx's Medication Instructions Recorded Perphenazine [Trilafon] 4 mg PO TID #90 tab 07/17/17 Sertraline HCl [Zoloft] 100 mg PO DAILY #30 tablet 07/17/17 Allergies Allergy/AdvReac Type Severity Reaction Status Date / Time alcohol AdvReac Unknown Verified 10/16/17 08:11 narcotics AdvReac Unknown Uncoded 10/16/17 03:43 Review of Systems ROS Other: All systems not noted in ROS Statement are negative. <Alfonso Dalal - Last Filed: 10/16/17 03:49> ROS Other: All systems not noted in ROS Statement are negative. <Xavier Johnson Humberto - Last Filed: 10/16/17 17:40> ROS Other: All systems not noted in ROS Statement are negative. <KaiXavier - Last Filed: 10/16/17 18:56> ROS Statement: Those systems with pertinent positive or pertinent negative responses have been documented in the HPI. Past Medical History Past Medical History: Coronary Artery Disease (CAD), Cancer, COPD, Diabetes Mellitus, Hyperlipidemia, Hypertension, Osteoarthritis (OA), Prostate Disorder Additional Past Medical History / Comment(s): Paranoid Schizophrenia, 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 Living in a envirnoment with bed bugs(2012), . vertigo. 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 [facility] HERNIA History of Any Multi-Drug Resistant Organisms: None Reported Past Surgical History: Heart Catheterization With Stent Additional Past Surgical History / Comment(s): Tumor removed from chest in 1972 , Cardiac stent placed in 2002,partial amp rt middle finger d/t melanoma cancer Past Anesthesia/Blood Transfusion Reactions: No Reported Reaction Date of Last Stent Placement:: 2002 Past Psychological History: PTSD, Schizophrenia Smoking Status: Current every day smoker Past Alcohol Use History: None Reported Past Drug Use History: None Reported - Past Family History Father Additional Family Medical History / Comment(s): Alcoholic Mother Family Medical History: CVA/TIA, Diabetes Mellitus, Myocardial Infarction ([place]) Additional Family Medical History / Comment(s): Addiction Issues, Dementia Daughter(s) Family Medical History: Cancer Additional Family Medical History / Comment(s): Ovarian Cancer <Alfonso Dalal - Last Filed: 10/16/17 03:49> General Exam Limitations: no limitations General appearance: alert, in no apparent distress, appears intoxicated, anxious Head exam: Present: atraumatic, normocephalic, normal inspection Eye exam: Present: normal appearance, PERRL, EOMI. Absent: scleral icterus, conjunctival injection, periorbital swelling ENT exam: Present: normal exam, mucous membranes moist Neck exam: Present: normal inspection. Absent: tenderness, meningismus, lymphadenopathy Respiratory exam: Present: normal lung sounds bilaterally. Absent: respiratory distress, wheezes, rales, rhonchi, stridor Cardiovascular Exam: Present: regular rate, normal rhythm, normal heart sounds. Absent: systolic murmur, diastolic murmur, rubs, gallop, clicks GI/Abdominal exam: Present: soft, normal bowel sounds. Absent: distended, tenderness, guarding, rebound, rigid Extremities exam: Present: normal inspection, full ROM, normal capillary refill. Absent: tenderness, pedal edema, joint swelling, calf tenderness Back exam: Present: normal inspection Neurological exam: Present: alert, oriented X3, CN II-XII intact Psychiatric exam: Present: normal affect, normal mood Skin exam: Present: warm, dry, intact, normal color. Absent: rash <Alfonso Dalal - Last Filed: 10/16/17 03:49> Course <Alfonso Dalal B - Last Filed: 10/16/17 03:49> <Xavier Johnson N - Last Filed: 10/16/17 17:40> <Xavier Quinn - Last Filed: 10/16/17 18:56> Vital Signs 10/16/17 10/16/17 10/16/17 03:37 04:14 05:57 Temperature 95.4 F L 98.5 F Pulse Rate 90 75 70 Respiratory 18 16 16 Rate Blood Pressure 205/100 138/71 144/71 O2 Sat by Pulse 100 98 96 Oximetry 10/16/17 10/16/17 10/16/17 09:44 11:28 13:37 Temperature Pulse Rate 73 73 81 Respiratory 17 18 16 Rate Blood Pressure 162/87 159/72 162/77 O2 Sat by Pulse 97 99 99 Oximetry 10/16/17 10/16/17 15:57 18:50 Temperature Pulse Rate 71 75 Respiratory 16 16 Rate Blood Pressure 146/75 163/77 O2 Sat by Pulse 97 98 Oximetry - Reevaluation(s) Reevaluation #1: 10/16/17 08:37 Patient reevaluated, CK-MB was mildly elevated and psychiatric services were concerned, this level was repeated, repeat level is 2.7 which is normal. I do not feel this CK-MB is at all contributory to the patient's presentation. He is currently medically cleared awaiting for EPS evaluation. (Xavier Johnson ) Reevaluation #2: 10/16/17 1600 Patient medically cleared, awaiting possible transfer versus admission at this institution. Case signed out to Dr. Quinn at shift change awaiting placement. ( Xavier Johnson) Reevaluation #3: 10/16/17 17:41 Patient reevaluated after discussing case with the [facility]. He is still suicidal and homicidal. (Xavier Johnson) EKG Findings - EKG Comments: EKG Findings:: EKG, normal sinus rhythm rate of 70, GA interval 116, QRS duration 88, QTC 394, no ST segment elevation or depression. <Xavier Johnson - Last Filed: 10/16/17 17:40> Medical Decision Making <Alfonso Dalal - Last Filed: 10/16/17 03:49> - Lab Data Result diagrams: 10/16/17 04:00 10/16/17 04:00 <Xavier Johnson - Last Filed: 10/16/17 17:40> - Lab Data Result diagrams: 10/16/17 04:00 10/16/17 04:00 <Xavier Quinn - Last Filed: 10/16/17 18:56> - Medical Decision Making Patient is resting comfortably throughout the day he was evaluated by Dr. Dalal and Dr. Johnson the patient will be transferred to the [facility] in [place]. I did discuss the case with the physician there (Xavier Quinn) - Lab Data Lab Results 10/16/17 10/16/17 10/16/17 Range/Units 04:00 04:00 04:00 WBC 9.4 (3.8-10.6) k/uL RBC 4.29 L (4.30-5.90) m/uL Hgb 13.9 (13.0-17.5) gm/dL Hct 40.5 (39.0-53.0) % MCV 94.3 (80.0-100.0) fL MCH 32.3 (25.0-35.0) pg MCHC 34.3 (31.0-37.0) g/dL RDW 12.8 (11.5-15.5) % Plt Count 187 (150-450) k/uL Neutrophils % 71 % Lymphocytes % 15 % Monocytes % 6 % Eosinophils % 6 % Basophils % 1 % Neutrophils # 6.7 (1.3-7.7) k/uL Lymphocytes # 1.4 (1.0-4.8) k/uL Monocytes # 0.6 (0-1.0) k/uL Eosinophils # 0.5 (0-0.7) k/uL Basophils # 0.1 (0-0.2) k/uL Sodium 144 (137-145) mmol/L Potassium 3.8 (3.5-5.1) mmol/L Chloride 103 (98-107) mmol/L Carbon Dioxide 27 (22-30) mmol/L Anion Gap 14 mmol/L BUN 28 H (9-20) mg/dL Creatinine 0.90 (0.66-1.25) mg/dL Est GFR (CKD-EPI)AfAm >90 (>60 ml/min/1.73 sqM) Est GFR (CKD-EPI)NonAf 87 (>60 ml/min/1.73 sqM) Glucose 146 H (74-99) mg/dL Calcium 10.3 H (8.4-10.2) mg/dL Total Bilirubin 0.5 (0.2-1.3) mg/dL AST 18 (17-59) U/L ALT 23 (21-72) U/L Alkaline Phosphatase 128 H (38-126) U/L Ammonia (<30) umol/L Total Creatine Kinase 162 (55-170) U/L CK-MB (CK-2) 2.7 H* (0.0-2.4) ng/mL CK-MB (CK-2) Rel Index 1.7 Total Protein 7.1 (6.3-8.2) g/dL Albumin 4.3 (3.5-5.0) g/dL Urine Color Urine Appearance (Clear) Urine pH (5.0-8.0) Ur Specific [place] (1.001-1.035) Urine Protein (Negative) Urine Glucose (UA) (Negative) Urine Ketones (Negative) Urine Blood (Negative) Urine Nitrite (Negative) Urine Bilirubin (Negative) Urine Urobilinogen (<2.0) mg/dL Ur Leukocyte Esterase (Negative) Urine RBC (0-5) /hpf Urine WBC (0-5) /hpf Amorphous Sediment (None) /hpf Urine Mucus (None) /hpf Urine Sperm (None) /hpf Salicylates <1.0 mg/dL Urine Opiates Screen (NotDetected) Ur Oxycodone Screen (NotDetected) Urine Methadone Screen (NotDetected) Ur Propoxyphene Screen (NotDetected) Acetaminophen <10.0 ug/mL Ur Barbiturates Screen (NotDetected) Phenytoin <3.0 ug/mL Valproic Acid 54.0 ug/mL Carbamazepine <3.0 ug/mL U Tricyclic Antidepress (NotDetected) Ur Phencyclidine Scrn (NotDetected) Ur Amphetamines Screen (NotDetected) U Methamphetamines Scrn (NotDetected) U Benzodiazepines Scrn (NotDetected) [place] <0.2 mmol/L Urine Cocaine Screen (NotDetected) U Marijuana (THC) Screen (NotDetected) Serum Alcohol <10 mg/dL 10/16/17 10/16/17 10/16/17 Range/Units 05:20 07:26 07:30 WBC (3.8-10.6) k/uL RBC (4.30-5.90) m/uL Hgb (13.0-17.5) gm/dL Hct (39.0-53.0) % MCV (80.0-100.0) fL MCH (25.0-35.0) pg MCHC (31.0-37.0) g/dL RDW (11.5-15.5) % Plt Count (150-450) k/uL Neutrophils % % Lymphocytes % % Monocytes % % Eosinophils % % Basophils % % Neutrophils # (1.3-7.7) k/uL Lymphocytes # (1.0-4.8) k/uL Monocytes # (0-1.0) k/uL Eosinophils # (0-0.7) k/uL Basophils # (0-0.2) k/uL Sodium (137-145) mmol/L Potassium (3.5-5.1) mmol/L Chloride (98-107) mmol/L Carbon Dioxide (22-30) mmol/L Anion Gap mmol/L BUN (9-20) mg/dL Creatinine (0.66-1.25) mg/dL Est GFR (CKD-EPI)AfAm (>60 ml/min/1.73 sqM) Est GFR (CKD-EPI)NonAf (>60 ml/min/1.73 sqM) Glucose (74-99) mg/dL Calcium (8.4-10.2) mg/dL Total Bilirubin (0.2-1.3) mg/dL AST (17-59) U/L ALT (21-72) U/L Alkaline Phosphatase (38-126) U/L Ammonia 27 (<30) umol/L Total Creatine Kinase (55-170) U/L CK-MB (CK-2) 2.2 (0.0-2.4) ng/mL CK-MB (CK-2) Rel Index Total Protein (6.3-8.2) g/dL Albumin (3.5-5.0) g/dL Urine Color Yellow Urine Appearance Cloudy (Clear) Urine pH 7.5 (5.0-8.0) Ur Specific [place] 1.016 (1.001-1.035) Urine Protein Negative (Negative) Urine Glucose (UA) Negative (Negative) Urine Ketones Negative (Negative) Urine Blood Negative (Negative) Urine Nitrite Negative (Negative) Urine Bilirubin Negative (Negative) Urine Urobilinogen 3.0 (<2.0) mg/dL Ur Leukocyte Esterase Negative (Negative) Urine RBC 1 (0-5) /hpf Urine WBC 1 (0-5) /hpf Amorphous Sediment Occasional H (None) /hpf Urine Mucus Rare H (None) /hpf Urine Sperm Rare (None) /hpf Salicylates mg/dL Urine Opiates Screen Not Detected (NotDetected) Ur Oxycodone Screen Not Detected (NotDetected) Urine Methadone Screen Not Detected (NotDetected) Ur Propoxyphene Screen Not Detected (NotDetected) Acetaminophen ug/mL Ur Barbiturates Screen Not Detected (NotDetected) Phenytoin ug/mL Valproic Acid ug/mL Carbamazepine ug/mL U Tricyclic Antidepress Not Detected (NotDetected) Ur Phencyclidine Scrn Not Detected (NotDetected) Ur Amphetamines Screen Not Detected (NotDetected) U Methamphetamines Scrn Not Detected (NotDetected) U Benzodiazepines Scrn Detected H (NotDetected) [place] mmol/L Urine Cocaine Screen Not Detected (NotDetected) U Marijuana (THC) Screen Not Detected (NotDetected) Serum Alcohol mg/dL Disposition <Alfonso Dalal - Last Filed: 10/16/17 03:49> <Xavier Johnson - Last Filed: 10/16/17 17:40> <Xavier Quinn - Last Filed: 10/16/17 18:56> Clinical Impression: Depression, Suicidal ideation Disposition: TRANSFER TO PSYCH HOSP/UNIT Condition: Stable Referrals: Jose Edge MD [Primary Care Provider] - 1-2 days
[2017-10-16 04:21] LABS: Basophils # (A) 0.1 k/uL (0-0.2); Basophils % (A) 1 %; Eosinophils # (A) 0.5 k/uL (0-0.7); Eosinophils % (A) 6 %; HCT 40.5 % (39.0-53.0); HGB 13.9 gm/dL (13.0-17.5); Lymphocytes # (A) 1.4 k/uL (1.0-4.8); Lymphocytes % (A) 15 %; MCH 32.3 pg (25.0-35.0); MCHC 34.3 g/dL (31.0-37.0); MCV 94.3 fL (80.0-100.0); Mean Platelet Volume 8.2; Monocytes # (A) 0.6 k/uL (0-1.0); Monocytes % (A) 6 %; Neutrophils # (A) 6.7 k/uL (1.3-7.7); Neutrophils % (A) 71 %; Platelet Count 187 k/uL (150-450); RBC 4.29 m/uL (4.30-5.90); RDW 12.8 % (11.5-15.5); WBC 9.4 k/uL (3.8-10.6)
[2017-10-16 04:33] LABS: ALT 23 U/L (21-72); AST 18 U/L (17-59); Acetaminophen <10.0 ug/mL; Albumin 4.3 g/dL (3.5-5.0); Alcohol <10 mg/dL; Alkaline Phosphatase 128 U/L (38-126); Anion Gap 14 mmol/L; Blood Urea Nitrogen 28 mg/dL (9-20); Calcium 10.3 mg/dL (8.4-10.2); Carbamazepine (Tegretol) <3.0 ug/mL; Carbon Dioxide 27 mmol/L (22-30); Chloride 103 mmol/L (98-107); Lithium <0.2 mmol/L; Phenytoin (Dilantin) <3.0 ug/mL; Potassium 3.8 mmol/L (3.5-5.1); Salicylate <1.0 mg/dL; Sodium 144 mmol/L (137-145); Total Bilirubin 0.5 mg/dL (0.2-1.3); Total Protein 7.1 g/dL (6.3-8.2)
[2017-10-16 04:52] VITALS: TEMP 98.5
[2017-10-16 04:52] LABS: Glucose 146 mg/dL (74-99)
[2017-10-16 04:58] LABS: Creatine Kinase MB 2.7 ng/mL (0.0-2.4)
[2017-10-16 07:55] LABS: Amorphous Sediment,Urine Occasional /hpf; Appearance,Urine Cloudy (Clear); Bilirubin,Urine Negative (Negative); Blood,Urine Negative (Negative); Color,Urine Yellow; Glucose,Urine (UA) Negative (Negative); Ketones,Urine Negative (Negative); Leukocyte Esterase,Urine Negative (Negative); Mucus,Urine Rare /hpf; Nitrite,Urine Negative (Negative); PH, Urine 7.5 (5.0-8.0); Protein,Urine Negative (Negative); RBC,Urine 1 /hpf (0-5); Specific Gravity,Urine 1.016 (1.001-1.035); Sperm,Urine Rare /hpf; WBC,Urine 1 /hpf (0-5)
[2017-10-16 08:11] LABS: Amphetamine Screen,Urine Not Detected (NotDetected); Barbiturate Screen,Urine Not Detected (NotDetected); Benzodiazepines Screen,Urine Detected (NotDetected); Cocaine Screen,Urine Not Detected (NotDetected); Methadone Screen, Urine Not Detected (NotDetected); Opiate Screen,Urine Not Detected (NotDetected); Oxycodone Screen, Urine Not Detected (NotDetected); Phencyclidine Screen,Urine Not Detected (NotDetected); Tricyclic Antidepressant,Urine Not Detected (NotDetected); Urn Cannabinoid Scrn Not Detected (NotDetected)
[2017-10-16] MEDS ORDERED: NICOTINE 21MG/24HR PATCH TRANSDERM STA (19:48)
[2017-10-16 21:25] LABS: Glucose,Whole Blood 122 mg/dL (75-99)
[2017-10-16 21:26] VITALS: BP 154/75; PULSE 82; RESP 18
== END 2017-10-16 21:34 ==
LOC: EC 03:07
DX: F32.9 Major depressive disorder, single episode, unspecified (principal); R45.851 Suicidal ideations; R45.850 Homicidal ideations; I25.10 Atherosclerotic heart disease of native coronary artery without angina pectoris; E78.5 Hyperlipidemia, unspecified; E11.9 Type 2 diabetes mellitus without complications; I10 Essential (primary) hypertension; M19.90 Unspecified osteoarthritis, unspecified site; N42.9 Disorder of prostate, unspecified; F17.200 Nicotine dependence, unspecified, uncomplicated; Z85.820 Personal history of malignant melanoma of skin; Z86.018 Personal history of other benign neoplasm; Z79.1 Long term (current) use of non-steroidal anti-inflammatories (NSAID); Z79.4 Long term (current) use of insulin; Z79.899 Other long term (current) drug therapy; Z88.5 Allergy status to narcotic agent; Z91.048 Other nonmedicinal substance allergy status
CPT/HCPCS: 82075; 36415; 93005; 80156; 80164; 80053; 82140; 82550; 82553; 80185; 80178; 85025; 81001; 80306; 83520 ×2; 80320; 99285; 96374; 96376; 96361 ×2; S4990; J2060

== ENCOUNTER → 2017-12-23 | Outpatient (CLI) | payer MEDICARE ==
--- NOTE | 2017-12-23 09:09 | US ---
EXAMINATION TYPE: US duplex aorta DATE OF EXAM: 12/23/2017 COMPARISON: NONE CLINICAL HISTORY: I71.4 Abdominal aortic aneurysm, without rupture. Known AAA per patient. Patient is not NPO- ate breakfast, drank coffee, and smoked. Difficult exam due to overlying bowel gas EXAM MEASUREMENTS: Abdominal Aorta: Proximal: 2.6 x 2.3 cm Mid: 5.4 x 5.7 cm Distal: 5.5 x 5.9 cm Bifurcation: Right: 1.0 cm Left: 1.1 cm Proximal portion appear ectatic. Mid/distal AAA visualized measuring 5.7 cm. Thrombus visualized in m id aorta. Limited exam due to overlying bowel gas IMPRESSION: Abdominal aortic aneurysm measuring up to 5.7 cm with extensive near circumferential mura l thrombus in the mid to distal abdominal aorta. No priors available at this institution for comparis on of size or interval growth.
== END ==
LOC: RADUSWWP 07:38
PROVIDERS: ATTEND Family Medicine
DX: I71.4 Abdominal aortic aneurysm, without rupture (principal)
CPT/HCPCS: 93979

== ENCOUNTER → 2018-02-08 | Outpatient (CLI) | payer MEDICARE ==
[2018-02-08 10:32] LABS: Basophils % (A) 1 %; Eosinophils # (A) 0.3 k/uL (0-0.7); Eosinophils % (A) 7 %; HCT 39.5 % (39.0-53.0); HGB 12.7 gm/dL (13.0-17.5); Lymphocytes # (A) 1.5 k/uL (1.0-4.8); Lymphocytes % (A) 30 %; MCH 32.1 pg (25.0-35.0); MCHC 32.2 g/dL (31.0-37.0); MCV 99.7 fL (80.0-100.0); Mean Platelet Volume 7.7; Monocytes # (A) 0.5 k/uL (0-1.0); Monocytes % (A) 11 %; Neutrophils # (A) 2.4 k/uL (1.3-7.7); Neutrophils % (A) 48 %; Platelet Count 133 k/uL (150-450); RBC 3.97 m/uL (4.30-5.90); RDW 13.1 % (11.5-15.5)
[2018-02-08 10:54] LABS: Potassium 4.7 mmol/L (3.5-5.1)
== END | disposition home or self-care (01) ==
LOC: LABPAT 09:45
PROVIDERS: ATTEND Surgery
DX: Z01.812 Encounter for preprocedural laboratory examination (principal); I71.4 Abdominal aortic aneurysm, without rupture
CPT/HCPCS: 36415; 80051; 85025

== ENCOUNTER 2018-02-09 08:31 | Inpatient (IN) | payer MEDICARE ==
[~2018-02-09 08:31] MED LIST: DEXAMETHASONE SOD PHOSPHATE 10 MG/ML 1 ML VIAL IV ONE; LACTATED RINGERS 1,000 ML IV SCH; MIDAZOLAM 2 MG/2 ML VIAL IV PRN; ONDANSETRON 4 MG/2 ML VIAL IVP ONE; SODIUM CHLORIDE 0.9% 1,000 ML in EMPTY BAG 1 BAG IV ONE; ceFAZolin IN SWFI 2 GM/20 ML SYRINGE IVP ONE; fentaNYL (PF) 50 MCG/ML 2 ML AMP IV PRN
[2018-02-09 09:21] LABS: Glucose,Whole Blood 82 mg/dL (75-99)
[2018-02-09] MEDS ORDERED: NEOSTIGMINE 1 MG/ML 10 ML VIAL ONE (10:29)
[2018-02-09] MEDS ORDERED: fentaNYL (PF) 50 MCG/ML 2 ML AMP ONE (10:29)
[2018-02-09] MEDS ORDERED: ePHEDrine SULFATE/0.9% NACL/PF 50 MG/5 ML SYRINGE IV ONE (10:29)
[2018-02-09] MEDS ORDERED: SUCCINYLCHOLINE CHLORIDE 100 MG/5 ML SYR IV ONE (10:29)
[2018-02-09] MEDS ORDERED: MIDAZOLAM 2 MG/2 ML VIAL ONE (10:29)
[2018-02-09] MEDS ORDERED: GLYCOPYRROLATE 0.2 MG/ML 2 ML VIAL ONE (10:29)
[2018-02-09] MEDS ORDERED: PROPOFOL 10 MG/ML 20 ML VIAL IV ONE (10:29)
[2018-02-09] MEDS ORDERED: ROCURONIUM BROMIDE 10 MG/ML 10 ML VIAL IV ONE (10:29)
[2018-02-09] MEDS ORDERED: LIDOCAINE 1% INJ 10MG/ML (10 ML MDV) SQ ONE (11:14)
[2018-02-09] MEDS ORDERED: LACTATED RINGERS 1,000 ML IV ONE (11:46)
[2018-02-09] MEDS ORDERED: IOPAMIDOL-250 100ML BTL INTRAARTER ONE (12:31)
[2018-02-09] MEDS ORDERED: HYDROcodone/APAP 5-325MG 1 EACH TAB PO PRN (12:57)
[2018-02-09 13:52] LABS: Glucose,Whole Blood 101 mg/dL (75-99)
[2018-02-09 15:15] LABS: Basophils % (A) 0 %; Eosinophils # (A) 0.2 k/uL (0-0.7); Eosinophils % (A) 2 %; HCT 41.9 % (39.0-53.0); HGB 13.7 gm/dL (13.0-17.5); Lymphocytes # (A) 0.7 k/uL (1.0-4.8); Lymphocytes % (A) 8 %; MCH 32.3 pg (25.0-35.0); MCHC 32.7 g/dL (31.0-37.0); MCV 98.9 fL (80.0-100.0); Mean Platelet Volume 8.1; Monocytes # (A) 0.4 k/uL (0-1.0); Monocytes % (A) 5 %; Neutrophils # (A) 7.3 k/uL (1.3-7.7); Neutrophils % (A) 84 %; Platelet Count 138 k/uL (150-450); RBC 4.24 m/uL (4.30-5.90); RDW 13.1 % (11.5-15.5); WBC 8.7 k/uL (3.8-10.6)
[2018-02-09 15:25] LABS: Calcium 9.3 mg/dL (8.4-10.2)
[2018-02-09 16:17] LABS: Glucose,Whole Blood 197 mg/dL (75-99)
[2018-02-09 16:43] VITALS: BMI 34.2
[2018-02-09] MEDS: CLEVIDIPINE BUTYRATE 25 MG in EMPTY BAG 1 BAG IV SCH (17:51)
[2018-02-09] MEDS: SODIUM CHLORIDE 0.9% 1,000 ML IV SCH ×2 (17:52→23:20)
[2018-02-09] MEDS: PERPHENAZINE 4 MG TAB PO SCH ×2 (17:54→20:55)
--- NOTE | 2018-02-09 18:07 | P.CNPUL ---
History of Present Illness Consult date: 02/09/18 Requesting physician: Asher Johnston Reason for consult: other Chief complaint: Endovascular repair of abdominal aortic aneurysm, postop day 0 History of present illness: Mr. Castaneda is a 68-year-old white male patient of Dr. Edge, who presented today for endovascular repair of abdominal aneurysm by Dr. Johnston. Patient has a known history of abdominal aortic aneurysm, has been followed on outpatient basis by Dr. Beto Cartwright from [place] for a period of several years, was initially measuring 3.3 cm. Most recent ultrasound of abdominal aorta dated showed mid to distal AAA measuring 5.7 cm with thrombus in the mid aorta. Patient was referred to the Vascular surgery for surgical intervention. Today on 02/09/2018 patient underwent successful repair of abdominal aneurysm. Patient's past medical history is significant for CAD with prior stenting, diabetes mellitus type 2, hypertension, hyperlipidemia, BPH, paranoid schizophrenia, PTSD, nicotine dependence, patient has been smoking for over 55 years, currently at 2 packs a day. History of COPD, used to see Dr. Seaman in the pulmonary office, not on oxygen at his baseline, has a rescue inhaler and nebulized treatments at home. [facility] and was told he has asbestos related lung changes by Dr. Seaman. Patient is seen in the intensive care, following his procedure, he is awake and alert, oriented 3, responding appropriately, cooperative. Denies any acute distress, verbalizes [id number] soreness in his bilateral groin incision sites. Denies any dyspnea, denies any chest pain, room air pulse ox is 98%, patient is hypertensive, blood pressure is 175/81, sinus rhythm on the monitor with a rate of 81 BPM, afebrile. Patient has a retake and his Zestoretic this morning, no other antihypertensives on board. We will start clevidipine drip to maintain his systolic blood pressure between 120-160 mmHg per vascular surgery recommendations. Lung sounds are clear, no wheezing, no rhonchi or rales appreciated. No cough, no chest congestion. 0.9 normal saline is infusing at a rate of 100 ML per hour. No other drips. Today's labs were reviewed, the CBC is 8.7, hemoglobin is 13.7, platelet count is 138, electrolytes are within normal limits, BUN is 21, creatinine is 1.05. Review of Systems All systems: negative Constitutional: Denies chills, Denies fever Eyes: denies blurred vision, denies pain Ears, nose, mouth and throat: Denies headache, Denies sore throat Cardiovascular: Denies chest pain, Denies shortness of breath Respiratory: Denies cough Gastrointestinal: Denies abdominal pain, Denies diarrhea, Denies nausea, Denies vomiting Musculoskeletal: Denies myalgias Integumentary: Denies pruritus, Denies rash Neurological: Denies numbness, Denies weakness Psychiatric: Denies anxiety, Denies depression Endocrine: Denies fatigue, Denies weight change Past Medical History Past Medical History: Coronary Artery Disease (CAD), Cancer, COPD, Diabetes Mellitus, Hyperlipidemia, Hypertension, Osteoarthritis (OA), Prostate Disorder Additional Past Medical History / Comment(s): Paranoid Schizophrenia, 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 Living in a envirnoment with bed bugs(2012), . vertigo. 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 [facility] HERNIA,melanoma History of Any Multi-Drug Resistant Organisms: None Reported Past Surgical History: Heart Catheterization With Stent Additional Past Surgical History / Comment(s): Tumor removed from chest in 1972, partial amp rt middle finger d/t melanoma cancer Past Anesthesia/Blood Transfusion Reactions: No Reported Reaction Date of Last Stent Placement:: 2002 Past Psychological History: PTSD, Schizophrenia Additional Psychological History / Comment(s): Paranoid Schizophrenia . pt is independant, drives, lives with in 1 level home that has 1 step. served in the [employer]. 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 - Past Family History Father Additional Family Medical History / Comment(s): Alcoholic Mother Family Medical History: CVA/TIA, Diabetes Mellitus, Myocardial Infarction (SD) Additional Family Medical History / Comment(s): Addiction Issues, Dementia Daughter(s) Family Medical History: Cancer Additional Family Medical History / Comment(s): Ovarian Cancer Medications and Allergies Home Medications Medication Instructions Recorded Confirmed Type Insulin Glargine [Lantus] 48 units SQ HS 12/11/15 02/09/18 History Lisinopril-Hctz 20-12.5 mg 1 tab PO DAILY 12/11/15 02/09/18 History [Zestoretic 20-12.5] Tamsulosin HCl [Flomax] 0.8 mg PO DAILY 12/11/15 02/09/18 History Albuterol Nebulized [Ventolin 2.5 mg INHALATION RT-TID PRN 03/06/17 02/09/18 History Nebulized] Atorvastatin [Lipitor] 20 mg PO DAILY 03/06/17 02/09/18 History Omeprazole [PriLOSEC] 20 mg PO DAILY 03/06/17 02/09/18 History Perphenazine [Trilafon] 4 mg PO TID #90 tab 07/17/17 02/09/18 Rx Sertraline HCl [Zoloft] 100 mg PO DAILY #30 tablet 07/17/17 02/09/18 Rx Albuterol Inhaler [Ventolin Hfa 2 puff INHALATION RT-QID PRN 10/16/17 02/09/18 History Inhaler] Meloxicam [Mobic] 7.5 mg PO DAILY 10/16/17 02/09/18 History Pioglitazone HCl [Actos] 15 mg PO DAILY 02/02/18 02/09/18 History Allergies Allergy/AdvReac Type Severity Reaction Status Date / Time alcohol AdvReac recovering Verified 02/09/18 14:52 alcoholic narcotics AdvReac does not Uncoded 02/02/18 14:05 want to receive any narcotics. Physical Exam Vitals: Vital Signs Temp Pulse Resp BP BP Pulse Ox 02/09/18 16:19 96.7 F L 20 176/92 98 02/09/18 15:55 80 18 166/77 96 02/09/18 15:20 82 18 161/77 96 02/09/18 15:06 78 18 163/74 96 02/09/18 14:51 81 18 175/81 98 02/09/18 14:30 75 16 157/79 97 02/09/18 14:18 73 16 155/75 96 02/09/18 14:02 72 16 152/75 100 02/09/18 13:47 72 16 152/75 100 02/09/18 13:32 72 16 148/69 100 02/09/18 13:15 72 16 134/68 100 02/09/18 13:09 98 F 73 16 139/67 100 02/09/18 09:00 97.6 F 80 18 183/89 202/97 97 Intake and Output 02/09/18 02/09/18 02/09/18 06:59 14:59 22:59 Intake Total 875 150 Output Total 700 900 Balance 175 -750 Intake: IV 875 150 Lactated Ringers 1,000 ml 150 @ 0 mls/hr IV .[facility] Rx#:[id number] Output: Urine 700 900 Other: Weight 84.369 kg 93.4 kg GENERAL EXAM: Alert, pleasant, 68-year-old white male, comfortable in no apparent distress. HEAD: Normocephalic/atraumatic. EYES: Normal reaction of pupils, equal size. Conjunctiva pink, sclera white. NOSE: Clear with pink turbinates. THROAT: No erythema or exudates. NECK: No masses, no JVD, no thyroid enlargement, no adenopathy. CHEST: No chest wall deformity. Symmetrical expansion. LUNGS: Equal air entry with no crackles, wheeze, rhonchi or dullness. CVS: Regular rate and rhythm, normal S1 and S2, no gallops, no murmurs, no rubs ABDOMEN: Soft, nontender. No hepatosplenomegaly, normal bowel sounds, no guarding or rigidity. EXTREMITIES: No clubbing, no edema, no cyanosis, 2+ pulses and upper and lower extremities. Bilateral groin incisions are clean dry and intact, covered with surgical dressings MUSCULOSKELETAL: Muscle strength and tone normal. SPINE: No scoliosis or deformity SKIN: No rashes CENTRAL NERVOUS SYSTEM: Alert and oriented -3. No focal deficits, tone is normal in all 4 extremities. PSYCHIATRIC: Alert and oriented -3. Appropriate affect. Intact judgment and insight. Results - Laboratory Findings CBC and BMP: 02/09/18 14:45 02/09/18 14:45 Abnormal lab findings: Abnormal Labs 02/09/18 02/09/18 02/09/18 13:39 14:45 14:45 RBC 4.24 L Plt Count 138 L Lymphocytes # 0.7 L BUN 21 H Glucose 122 H POC Glucose (mg/dL) 101 H 02/09/18 16:15 RBC Plt Count Lymphocytes # BUN Glucose POC Glucose (mg/dL) 197 H Assessment and Plan Plan: Assessment: #1. Abdominal aortic aneurysm of 5.7 cm with mural thrombus, status post endovascular repair of abdominal aortic aneurysm, post-stop day 0 #2. Chronic and ongoing nicotine addiction, currently at 2 packs a day for over 55 years #3. Hypertension #4. Hyperlipidemia #5. Diabetes mellitus type 2 #6. Coronary artery disease, with prior stenting #7. COPD, stable #8. Prior asbestos exposure #9. Paranoid schizophrenia #10. PTSD #11. BPH Plan: We'll initiate clevidipine drip to maintain systolic blood pressure between 120- 160 mmHg her vascular surgery recommendations, patient has SCDs applied to bilateral lower extremities, will restart Protonix. Maintain pain control. Patient's COPD is stable right now, we will order nebulized treatments on an as- needed basis. IV antibiotics per vascular surgery, we'll restart patient's psychotropic medications. Hold Mobic. NovoLog sliding scale, restart home dose Lantus. Close hemodynamic monitoring, surgical site monitoring, urine output, neurological, and vascular assessment. We'll continue to closely follow. I performed a history & physical examination of the patient and discussed their management with my nurse practitioner, Gia Fishman. I reviewed the nurse practitioner's note and agree with the documented findings and plan of care. Lung sounds are clear. The findings and the impression was discussed with the patient. I attest to the documentation by the nurse practitioner. Time with Patient: Greater than 30
[2018-02-09] MEDS ORDERED: ALBUTEROL NEBULIZED 2.5 MG/3 ML INHALATION PRN ×2 (18:15→18:21)
[2018-02-09] MEDS ORDERED: ALBUTEROL INHALER 60 PUFF/8 GM INHALER INHALATION PRN (18:15)
[2018-02-09 20:24] LABS: Glucose,Whole Blood 274 mg/dL (75-99)
[2018-02-09] MEDS: INSULIN ASPART 100 UNIT/ML 1 ML 10 ML VIAL SQ SCH (20:56)
[2018-02-09] MEDS: IPRATROPIUM-ALBUTEROL 3 ML NEB INHALATION PRN (20:59)
[2018-02-09] MEDS ORDERED: INSULIN DETEMIR 100 UNIT/ML 10 ML VIAL SQ SCH (21:00)
[2018-02-09] MEDS ORDERED: PRAVASTATIN SODIUM 40 MG TAB PO SCH (21:00)
[2018-02-10 04:15] VITALS: TEMP 98.4
[2018-02-10 04:17] LABS: HGB 12.5 gm/dL (13.0-17.5); MCH 31.7 pg (25.0-35.0); MCV 96.2 fL (80.0-100.0); Mean Platelet Volume 8.5; Platelet Count 154 k/uL (150-450); RBC 3.95 m/uL (4.30-5.90); RDW 12.9 % (11.5-15.5); WBC 10.5 k/uL (3.8-10.6)
[2018-02-10 04:37] LABS: Calcium 9.5 mg/dL (8.4-10.2); Magnesium 1.7 mg/dL (1.6-2.3); Phosphorus 3.6 mg/dL (2.5-4.5); Potassium 4.2 mmol/L (3.5-5.1)
[2018-02-10] MEDS ORDERED: Magnesium Replacement Protocol 1 EACH MISC MISCELLANE PRN (04:56)
[2018-02-10] MEDS: MAGNESIUM SULFATE-D5W PMX 1 GM in DEXTROSE/WATER 1 100ML.BAG IVPB SCH ×2 (05:35→07:03)
[2018-02-10] MEDS: CLEVIDIPINE BUTYRATE 25 MG in EMPTY BAG 1 BAG IV SCH (05:36)
[2018-02-10] MEDS ORDERED: INSULIN DETEMIR 100 UNIT/ML 10 ML VIAL SQ SCH (06:22)
[2018-02-10 07:35] LABS: Glucose,Whole Blood 188 mg/dL (75-99)
--- NOTE | 2018-02-10 07:47 | P.PN ---
Subjective Progress Note Date: 02/10/18 Mr. Castaneda is a 68-year-old white male patient of Dr. Edge, who presented today for endovascular repair of abdominal aneurysm by Dr. Johnston. Patient has a known history of abdominal aortic aneurysm, has been followed on outpatient basis by Dr. Beto Cartwright from [place] for a period of several years, was initially measuring 3.3 cm. Most recent ultrasound of abdominal aorta dated showed mid to distal AAA measuring 5.7 cm with thrombus in the mid aorta. Patient was referred to the Vascular surgery for surgical intervention. Today on 02/09/2018 patient underwent successful repair of abdominal aneurysm. Patient's past medical history is significant for CAD with prior stenting, diabetes mellitus type 2, hypertension, hyperlipidemia, BPH, paranoid schizophrenia, PTSD, nicotine dependence, patient has been smoking for over 55 years, currently at 2 packs a day. History of COPD, used to see Dr. Seaman in the pulmonary office, not on oxygen at his baseline, has a rescue inhaler and nebulized treatments at home. Patient has had asbestos exposure in the past from [employer], and was told he has asbestos related lung changes by Dr. Seaman. Patient is seen in the intensive care, following his procedure, he is awake and alert, oriented 3, responding appropriately, cooperative. Denies any acute distress, verbalizes [id number] soreness in his bilateral groin incision sites. Denies any dyspnea, denies any chest pain, room air pulse ox is 98%, patient is hypertensive, blood pressure is 175/81, sinus rhythm on the monitor with a rate of 81 BPM, afebrile. Patient has a retake and his Zestoretic this morning, no other antihypertensives on board. We will start clevidipine drip to maintain his systolic blood pressure between 120-160 mmHg per vascular surgery recommendations. Lung sounds are clear, no wheezing, no rhonchi or rales appreciated. No cough, no chest congestion. 0.9 normal saline is infusing at a rate of 100 ML per hour. No other drips. Today's labs were reviewed, the CBC is 8.7, hemoglobin is 13.7, platelet count is 138, electrolytes are within normal limits, BUN is 21, creatinine is 1.05. On 02/10/2018 , the patient is being seen for a follow-up. The patient is postop day #1. He is doing extremely well. Postop, the patient had to be placed on a Cleviprex for blood pressure control. He responded nicely and this morning at around 6:00 the drip has been discontinued. His surgical wound sites are clean. He has adequate pulses in lower extremities bilaterally. Blood sugars in the low 200s. The patient has no specific complaints. No nausea. No vomiting. Abdominal pain. No other complaints otherwise for now. The patient is producing adequate amount of urine output. Renal function stable with a creatinine of 1.08. I electrodes are within normal limits. Hemoglobin is at 12.5. Objective - Vital Signs Vital signs: Vital Signs Temp 98.4 F 02/10/18 04:00 Pulse 83 02/10/18 07:00 Resp 26 H 02/10/18 07:00 BP 138/79 02/10/18 07:00 Pulse Ox 94 L 02/10/18 07:00 Intake & Output 02/09/18 02/10/18 02/10/18 18:59 06:59 18:59 Intake Total 1030.3 1142.600 100 Output Total 2650 520 Balance -1619.7 622.600 100 Weight 93.4 kg 92.2 kg Intake: IV 1025 1100 100 Lactated Ringers 1,000 ml 150 @ 0 mls/hr IV .STK-MED ONE Rx#:[id number] Magnesium Sulfate-D5w Pmx 100 100 1 gm In Dextrose/Water 1 100ml.bag @ 100 mls/hr IVPB Q1H JEFFERY Rx#: [id number] Sodium Chloride 0.9% 1, 1000 000 ml @ 100 mls/hr IV . Q10H JEFFERY Rx#:[id number] Intake, IV Titration 5.3 42.600 Amount Clevidipine Butyrate 25 5.3 42.600 mg In Empty Bag 1 bag @ 1 MG/HR 2 mls/hr IV .Q24H JEFFERY Rx#:[id number] Output: Urine 2650 520 Other: Voiding Method Toilet Urinal # Voids 1 # Bowel Movements 1 - Exam GENERAL EXAM: Alert, pleasant, 68-year-old white male, comfortable in no apparent distress. HEAD: Normocephalic/atraumatic. EYES: Normal reaction of pupils, equal size. Conjunctiva pink, sclera white. NOSE: Clear with pink turbinates. THROAT: No erythema or exudates. NECK: No masses, no JVD, no thyroid enlargement, no adenopathy. CHEST: No chest wall deformity. Symmetrical expansion. LUNGS: Equal air entry with no crackles, wheeze, rhonchi or dullness. CVS: Regular rate and rhythm, normal S1 and S2, no gallops, no murmurs, no rubs ABDOMEN: Soft, nontender. No hepatosplenomegaly, normal bowel sounds, no guarding or rigidity. EXTREMITIES: No clubbing, no edema, no cyanosis, 2+ pulses and upper and lower extremities. Bilateral groin incisions are clean dry and intact, covered with surgical dressings MUSCULOSKELETAL: Muscle strength and tone normal. SPINE: No scoliosis or deformity SKIN: No rashes CENTRAL NERVOUS SYSTEM: Alert and oriented -3. No focal deficits, tone is normal in all 4 extremities. PSYCHIATRIC: Alert and oriented -3. Appropriate affect. Intact judgment and insight. - Labs CBC & Chem 7: 02/10/18 04:10 02/10/18 04:05 Labs: Abnormal Lab Results - Last 24 Hours (Table) 02/09/18 02/09/18 02/09/18 Range/Units 13:39 14:45 14:45 RBC 4.24 L (4.30-5.90) m/uL Hgb (13.0-17.5) gm/dL Hct (39.0-53.0) % Plt Count 138 L (150-450) k/uL Lymphocytes # 0.7 L (1.0-4.8) k/uL Sodium (137-145) mmol/L BUN 21 H (9-20) mg/dL Glucose 122 H (74-99) mg/dL POC Glucose (mg/dL) 101 H (75-99) mg/dL 02/09/18 02/09/18 02/10/18 Range/Units 16:15 20:21 04:05 RBC (4.30-5.90) m/uL Hgb (13.0-17.5) gm/dL Hct (39.0-53.0) % Plt Count (150-450) k/uL Lymphocytes # (1.0-4.8) k/uL Sodium 136 L (137-145) mmol/L BUN 25 H (9-20) mg/dL Glucose 169 H (74-99) mg/dL POC Glucose (mg/dL) 197 H 274 H (75-99) mg/dL 02/10/18 02/10/18 Range/Units 04:10 07:33 RBC 3.95 L (4.30-5.90) m/uL Hgb 12.5 L (13.0-17.5) gm/dL Hct 38.0 L (39.0-53.0) % Plt Count (150-450) k/uL Lymphocytes # (1.0-4.8) k/uL Sodium (137-145) mmol/L BUN (9-20) mg/dL Glucose (74-99) mg/dL POC Glucose (mg/dL) 188 H (75-99) mg/dL Assessment and Plan Plan: #1. Abdominal aortic aneurysm of 5.7 cm with mural thrombus, status post endovascular repair of abdominal aortic aneurysm, post-stop day 1. The patient is hemodynamically stable. The patient is off the clevidipine drip. The patient has a normal renal function. The patient is producing adequate urine output. Pulses in the lower extremities are present. #2. Chronic and ongoing nicotine addiction, currently at 2 packs a day for over 55 years #3. Hypertension #4. Hyperlipidemia #5. Diabetes mellitus type 2 #6. Coronary artery disease, with prior stenting #7. COPD, stable #8. Prior asbestos exposure #9. Paranoid schizophrenia #10. PTSD #11. BPH Plan The patient is doing well. Monitor the blood sugar. Provide breakfast. Monitor the blood pressure. Ambulate in the hallway. Possible discharge today. He is already been cleared by vascular surgery. Will proceed with the supportive care and the patient is being considered for discharge today.
[2018-02-10] MEDS: IPRATROPIUM-ALBUTEROL 3 ML NEB INHALATION PRN (08:05)
[2018-02-10] MEDS: PERPHENAZINE 4 MG TAB PO SCH (08:08)
[2018-02-10] MEDS: SODIUM CHLORIDE 0.9% 1,000 ML IV SCH (08:09)
[2018-02-10] MEDS: INSULIN ASPART 100 UNIT/ML 1 ML 10 ML VIAL SQ SCH ×2 (08:11→12:46)
--- NOTE | 2018-02-10 08:13 | P.OP ---
Date of Procedure: 02/09/18 Preoperative Diagnosis: Infrarenal AAA Postoperative Diagnosis: Same Procedure(s) Performed: Endovascular Aortic Aneurysm Repair with ultrasound guided percutaneous access Implants: Ovation iX aortic graft Anesthesia: AZULA Surgeon: Asher Johnston Estimated Blood Loss (ml): 10 IV fluids (ml): 900 Urine output (ml): 700 Pathology: none sent Condition: stable Disposition: PACU Indications for Procedure: 68 year-old gentleman with history of abdominal aortic aneurysm presented to the office after noting increased size of aneurysm on his yearly ultrasound. He was sent for CTA which demonstrated a 5.8 cm infrarenal AAA which was suitable for endovascular repair. He presents today for such repair. Operative Findings: Large bilobed infrarenal AAA with tapered neck. Description of Procedure: After written and informed consent was obtained and all risks, benefits, and complications were described the patient was brought to the cardiac cath rn and laid in a supine position. The area of the groins, and abdomen were prepped and draped in the usual sterile fashion after appropriate anesthesia was performed. Time-out was performed in usual manner and antibiotics were given prior to any incisions. Utilizing ultrasound bilateral femoral arteries were located and shown to have moderate calcification. Access was obtained under ultrasound guidance. Two Perclose sutures were placed in usual fashion for each femoral artery and 8F sheaths were placed using Seldinger technique. .035 glidewires were placed into the aorta followed by glidecatheter up the right femoral and pigtail catheter for the left femoral sheath. The right glidewire was replaced with a stiff Lunderquist wire and a 29mm Ovation iX main body graft was placed over the wire up the right femoral artery after removal of the 8F sheath. Patient was administered heparin and followed with serial ACTs for appropriate re-dosing. Once main body was placed just below the renal arteries an aortogram was obtained to demonstrate landing zone. The main body was then deployed in normal fashion and polymer was injected for the rings after the pigtail and main wire were withdrawn below the landing site. While the polymer hardened the gate was cannulated with an .035 glidewire and angle Orozco catheter. Appropriate cannulation was ensured with spinning a pigtail catheter in the main body graft. A retrograde angiogram was then obtain to measure distance to the internal iliac artery and a Ovation [id number] limb was chosen and deployed in normal manner. Attention was then placed back to complete the deployment of the main body after 14 minutes has been allowed to pass. The main body deployment was completed and the nose cone was recaptured and removed. At that time a Coda balloon was placed and balloon angioplasty was performed the rings of the main body. The balloon was removed and a pigtail catheter was placed to measure the distance to the ipsilateral internal iliac artery. Retrograde angiogram was performed and distance measured and a [id number] limb was chosen and then deployed in usual fashion. Once completed [id number] balloons were used to angioplasty the overlap areas. Balloons were removed and pigtail catheter was placed for final angiogram. Angiogram demonstrated complete exclusion of the aneurysm without any evidence of Type I, II, III or IV endoleak. Good flow throughout was noted. All sheaths and wires were removed and Perclose devices secured for hemostasis. The patient tolerated the procedure well, was awoken and sent to PACU for recovery. He had palpable PT pulses at the conclusion of the case.
--- NOTE | 2018-02-10 08:33 | IR ---
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 Fluoroscopy was provided to the referring clinician. See dictated report from cardiology. 21.6 ellis philip of fluoroscopy utilized
[2018-02-10] MEDS ORDERED: ATORVASTATIN 40 MG TAB PO SCH (09:00)
[2018-02-10] MEDS ORDERED: ASPIRIN 81 MG PO SCH (09:00)
[2018-02-10] MEDS ORDERED: TAMSULOSIN 0.4 MG CAP.ER.24H PO SCH (09:00)
[2018-02-10] MEDS ORDERED: SERTRALINE 100 MG TAB PO SCH (09:00)
[2018-02-10] MEDS ORDERED: PANTOPRAZOLE 40 MG TABLET PO SCH (09:00)
[2018-02-10] MEDS ORDERED: LISINOPRIL-HCTZ 20-12.5 MG 1 EACH TAB PO SCH (09:00)
[2018-02-10] MEDS ORDERED: PIOGLITAZONE 15 MG TAB PO SCH (09:00)
--- NOTE | 2018-02-10 10:12 | DS ---
DISCHARGE SUMMARY PREOPERATIVE DIAGNOSIS: Abdominal aortic aneurysm. SECONDARY DIAGNOSES: 1. Hypertension. 2. Diabetes. 3. Chronic obstructive pulmonary disease. 4. Post coronary artery stent. PROCEDURE: Infrarenal aortic stent graft placement. HOSPITAL COURSE: This patient has history of abdominal aortic aneurysm. Patient had a CTA of the abdomen and pelvis. Patient was seen by Dr. Asher Johnston and patient went for infrarenal aortic stent graft placement. Patient was seen in the intensive care unit. Vital signs are stable. Incision in the groin is clean. Pulses are decent. Patient has hypertension controlled, discussed with the project program manager. Patient will be going home today and will come to the office on Thursday for followup. No heavy lifting. Regular diet. Continue with home medication. MMODL / IJN: [id number] /
--- NOTE | 2018-02-10 11:03 | P.CONS ---
History of Present Illness - History of Present Illness 68-year-old male abdominal aortic aneurysm with mural thrombus Postop endovascular repair of abdominal aneurysm Nicotine addiction Hypertension Hyperlipidemia Diabetes type 2 History of coronary disease with stenting COPD with prior asbestos exposure Paranoid schizophrenic PTSD BPH Plan We'll continue to monitor the patient Medically stable for discharge Review of Systems No complaints at this time Past Medical History Past Medical History: Coronary Artery Disease (CAD), Cancer, COPD, Diabetes Mellitus, Hyperlipidemia, Hypertension, Osteoarthritis (OA), Prostate Disorder Additional Past Medical History / Comment(s): Paranoid Schizophrenia, 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 Living in a envirnoment with bed bugs(2012), . vertigo. 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 [facility] HERNIA,melanoma History of Any Multi-Drug Resistant Organisms: None Reported Past Surgical History: Heart Catheterization With Stent Additional Past Surgical History / Comment(s): Tumor removed from chest in 1972, partial amp rt middle finger d/t melanoma cancer Past Anesthesia/Blood Transfusion Reactions: No Reported Reaction Date of Last Stent Placement:: 2002 Past Psychological History: PTSD, Schizophrenia Additional Psychological History / Comment(s): Paranoid Schizophrenia . pt is independant, drives, lives with in 1 level home that has 1 step. 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 - Past Family History Father Additional Family Medical History / Comment(s): Alcoholic Mother Family Medical History: CVA/TIA, Diabetes Mellitus, Myocardial Infarction ([place]) Additional Family Medical History / Comment(s): Addiction Issues, Dementia Daughter(s) Family Medical History: Cancer Additional Family Medical History / Comment(s): Ovarian Cancer Medications and Allergies Home Medications Medication Instructions Recorded Confirmed Type Insulin Glargine [Lantus] 48 units SQ HS 12/11/15 02/09/18 History Lisinopril-Hctz 20-12.5 mg 1 tab PO DAILY 12/11/15 02/09/18 History [Zestoretic 20-12.5] Tamsulosin HCl [Flomax] 0.8 mg PO DAILY 12/11/15 02/09/18 History Albuterol Nebulized [Ventolin 2.5 mg INHALATION RT-TID PRN 03/06/17 02/09/18 History Nebulized] Atorvastatin [Lipitor] 20 mg PO DAILY 03/06/17 02/09/18 History Omeprazole [PriLOSEC] 20 mg PO DAILY 03/06/17 02/09/18 History Perphenazine [Trilafon] 4 mg PO TID #90 tab 07/17/17 02/09/18 Rx Sertraline HCl [Zoloft] 100 mg PO DAILY #30 tablet 07/17/17 02/09/18 Rx Albuterol Inhaler [Ventolin Hfa 2 puff INHALATION RT-QID PRN 10/16/17 02/09/18 History Inhaler] Meloxicam [Mobic] 7.5 mg PO DAILY 10/16/17 02/09/18 History Pioglitazone HCl [Actos] 15 mg PO DAILY 02/02/18 02/09/18 History Allergies Allergy/AdvReac Type Severity Reaction Status Date / Time alcohol AdvReac recovering Verified 02/09/18 14:52 alcoholic narcotics AdvReac does not Uncoded 02/02/18 14:05 want to receive any narcotics. Physical Exam Vitals: Vital Signs Temp Pulse Pulse Resp BP BP BP 02/10/18 10:15 80 22 154/70 02/10/18 10:00 82 15 147/79 02/10/18 09:45 83 14 02/10/18 09:30 95 15 02/10/18 09:15 87 14 02/10/18 09:00 89 16 02/10/18 08:45 93 12 02/10/18 08:30 93 22 02/10/18 08:18 103 H 02/10/18 08:15 96 27 H 02/10/18 08:05 89 02/10/18 08:00 92 32 H 02/10/18 07:45 98 29 H 166/85 02/10/18 07:30 81 24 166/85 02/10/18 07:15 83 17 137/70 02/10/18 07:00 83 26 H 138/79 02/10/18 06:45 84 24 142/74 02/10/18 06:30 83 25 H 141/70 02/10/18 06:15 85 21 138/68 02/10/18 06:00 84 14 137/63 02/10/18 05:45 85 15 129/61 02/10/18 05:30 87 19 123/67 02/10/18 05:15 85 18 124/69 02/10/18 05:00 87 20 134/67 02/10/18 04:45 97 24 124/67 02/10/18 04:30 87 27 H 131/64 02/10/18 04:15 87 27 H 127/64 02/10/18 04:00 98.4 F 85 24 125/62 02/10/18 03:45 93 22 119/65 02/10/18 03:30 84 16 129/65 02/10/18 03:15 84 16 133/61 02/10/18 03:00 85 18 116/63 02/10/18 02:45 87 26 H 121/64 02/10/18 02:30 84 17 118/70 02/10/18 02:15 86 17 118/60 02/10/18 02:00 88 25 H 129/67 02/10/18 01:45 89 25 H 128/66 02/10/18 01:30 87 13 117/65 02/10/18 01:15 87 15 119/65 02/10/18 01:00 84 17 120/60 02/10/18 00:45 90 15 113/62 02/10/18 00:30 87 14 124/66 02/10/18 00:15 89 16 132/59 02/10/18 00:00 98.0 F 87 14 134/64 02/09/18 23:45 89 13 132/63 02/09/18 23:30 93 0 L 118/61 02/09/18 23:15 101 H 21 133/62 02/09/18 23:00 93 14 133/62 02/09/18 22:45 87 12 132/63 02/09/18 22:30 92 13 119/64 02/09/18 22:15 91 12 125/58 02/09/18 22:06 89 11 L 145/61 02/09/18 22:00 94 17 145/61 02/09/18 21:45 91 21 145/61 02/09/18 21:30 93 24 142/69 02/09/18 21:15 91 19 146/71 02/09/18 21:00 86 16 131/71 18 20:59 92 02/09/18 20:45 90 14 130/62 02/09/18 20:30 97 24 128/65 02/09/18 20:15 89 16 140/65 02/09/18 20:00 97.8 F 88 20 145/66 02/09/18 19:45 90 14 134/62 02/09/18 19:30 94 13 136/63 02/09/18 19:15 89 15 142/65 02/09/18 19:00 90 16 124/66 02/09/18 18:45 91 134/60 02/09/18 18:30 93 134/59 02/09/18 18:15 93 18 158/75 02/09/18 18:00 101 H 16 151/69 02/09/18 17:45 88 178/88 02/09/18 17:15 86 18 171/86 02/09/18 16:19 96.7 F L 20 176/92 02/09/18 16:15 96.2 F L 82 176/92 02/09/18 15:55 80 18 166/77 02/09/18 15:20 82 18 161/77 02/09/18 15:06 78 18 163/74 02/09/18 14:51 81 18 175/81 02/09/18 14:30 75 16 157/79 02/09/18 14:18 73 16 155/75 02/09/18 14:02 72 16 152/75 02/09/18 13:47 72 16 152/75 02/09/18 13:32 72 16 148/69 02/09/18 13:15 72 16 134/68 02/09/18 13:09 98 F 73 16 139/67 Pulse Ox 02/10/18 10:15 96 02/10/18 10:00 97 02/10/18 09:45 95 02/10/18 09:30 94 L 02/10/18 09:15 98 02/10/18 09:00 97 02/10/18 08:45 96 02/10/18 08:30 97 02/10/18 08:18 08/01/18 08:15 98 02/10/18 08:05 02/10/18 08:00 97 02/10/18 07:45 96 02/10/18 07:30 96 02/10/18 07:15 93 L 02/10/18 07:00 94 L 02/10/18 06:45 93 L 02/10/18 06:30 94 L 02/10/18 06:15 92 L 02/10/18 06:00 93 L 02/10/18 05:45 94 L 02/10/18 05:30 94 L 02/10/18 05:15 97 02/10/18 05:00 95 02/10/18 04:45 92 L 02/10/18 04:30 92 L 02/10/18 04:15 95 02/10/18 04:00 94 L 02/10/18 03:45 95 02/10/18 03:30 93 L 02/10/18 03:15 93 L 02/10/18 03:00 93 L 02/10/18 02:45 93 L 02/10/18 02:30 93 L 02/10/18 02:15 93 L 02/10/18 02:00 93 L 02/10/18 01:45 95 02/10/18 01:30 93 L 02/10/18 01:15 95 02/10/18 01:00 94 L 02/10/18 00:45 94 L 02/10/18 00:30 94 L 02/10/18 00:15 94 L 02/10/18 00:00 95 02/09/18 23:45 94 L 02/09/18 23:30 95 02/09/18 23:15 02/09/18 23:00 94 L 02/09/18 22:45 94 L 02/09/18 22:30 95 02/09/18 22:15 94 L 02/09/18 22:06 98 02/09/18 22:00 95 02/09/18 21:45 96 02/09/18 21:30 95 02/09/18 21:15 95 02/09/18 21:00 96 02/09/18 20:59 02/09/18 20:45 95 02/09/18 20:30 95 02/09/18 20:15 97 02/09/18 20:00 98 02/09/18 19:45 95 02/09/18 19:30 94 L 02/09/18 19:15 95 02/09/18 19:00 95 02/09/18 18:45 95 02/09/18 18:30 96 02/09/18 18:15 98 02/09/18 18:00 98 02/09/18 17:45 97 02/09/18 17:15 98 02/09/18 16:19 98 02/09/18 16:15 99 02/09/18 15:55 96 02/09/18 15:20 96 02/09/18 15:06 96 02/09/18 14:51 98 02/09/18 14:30 97 02/09/18 14:18 96 02/09/18 14:02 100 02/09/18 13:47 100 02/09/18 13:32 100 02/09/18 13:15 100 02/09/18 13:09 100 Intake and Output 02/09/18 02/10/18 02/10/18 22:59 06:59 14:59 Intake Total 455.3 842.600 850 Output Total 1950 520 350 Balance -1494.7 322.600 500 Intake: IV 450 800 400 Lactated Ringers 1,000 ml 150 @ 0 mls/hr IV .STK-MED ONE Rx#:[id number] Magnesium Sulfate-D5w Pmx 100 100 1 gm In Dextrose/Water 1 100ml.bag @ 100 mls/hr IVPB Q1H JEFFERY Rx#: [id number] Sodium Chloride 0.9% 1, 300 700 300 000 ml @ 100 mls/hr IV . Q10H JEFFERY Rx#:[id number] Intake, IV Titration 5.3 42.600 Amount Clevidipine Butyrate 25 5.3 42.600 mg In Empty Bag 1 bag @ 1 MG/HR 2 mls/hr IV .Q24H JEFFERY Rx#:[id number] Oral 450 Output: Urine 1950 520 350 Other: Voiding Method Toilet Urinal # Voids 1 # Bowel Movements 1 Weight 93.4 kg 92.2 kg - Constitutional General appearance: mild distress - EENT Eyes: PERRLA Ears: bilateral: normal - Neck Neck: normal ROM - Respiratory Respiratory: bilateral: CTA - Cardiovascular Rhythm: regular - Gastrointestinal General gastrointestinal: soft - Genitourinary Dressings noted bilateral groin - Integumentary Integumentary: normal - Neurologic Neurologic: CNII-XII intact - Psychiatric Psychiatric: A&O x's 3, appropriate affect, intact judgment & insight Results CBC & Chem 7: 02/10/18 04:10 02/10/18 04:05 Labs: Abnormal Lab Results - Last 24 Hours (Table) 02/09/18 02/09/18 02/09/18 Range/Units 13:39 14:45 14:45 RBC 4.24 L (4.30-5.90) m/uL Hgb (13.0-17.5) gm/dL Hct (39.0-53.0) % Plt Count 138 L (150-450) k/uL Lymphocytes # 0.7 L (1.0-4.8) k/uL Sodium (137-145) mmol/L BUN 21 H (9-20) mg/dL Glucose 122 H (74-99) mg/dL POC Glucose (mg/dL) 101 H (75-99) mg/dL 02/09/18 02/09/18 02/10/18 Range/Units 16:15 20:21 04:05 RBC (4.30-5.90) m/uL Hgb (13.0-17.5) gm/dL Hct (39.0-53.0) % Plt Count (150-450) k/uL Lymphocytes # (1.0-4.8) k/uL Sodium 136 L (137-145) mmol/L BUN 25 H (9-20) mg/dL Glucose 169 H (74-99) mg/dL POC Glucose (mg/dL) 197 H 274 H (75-99) mg/dL 02/10/18 02/10/18 Range/Units 04:10 07:33 RBC 3.95 L (4.30-5.90) m/uL Hgb 12.5 L (13.0-17.5) gm/dL Hct 38.0 L (39.0-53.0) % Plt Count (150-450) k/uL Lymphocytes # (1.0-4.8) k/uL Sodium (137-145) mmol/L BUN (9-20) mg/dL Glucose (74-99) mg/dL POC Glucose (mg/dL) 188 H (75-99) mg/dL Assessment and Plan Plan: Assessment Abdominal aneurysm 5.7 with mural thrombus post endovascular repair of abdominal aortic aneurysm Nicotine addiction Hypertension Hyperlipidemia Diabetes type 2 coronary artery disease with stenting COPD Paranoid schizophrenic PTSD BPH Plan Patient medically stable for discharge
[2018-02-10] MEDS ORDERED: amLODIPine 10 MG TAB PO SCH (11:30)
[2018-02-10 12:04] LABS: Glucose,Whole Blood 245 mg/dL (75-99)
[2018-02-10 14:52] VITALS: BP 151/71; PULSE 0; RESP 18
== END 2018-02-10 14:54 | disposition home or self-care (01) | DRG 269 ==
LOC: CATHCVL 08:31 → 6ICU 12:46
PROVIDERS: ADMIT Surgery; ATTEND Surgery
PROC: 04V03DZ Restriction of Abdominal Aorta with Intraluminal Device, Percutaneous Approach (ICD-10-PCS; principal; 2018-02-09 10:29)
DX: I71.4 Abdominal aortic aneurysm, without rupture (principal); F20.0 Paranoid schizophrenia; E78.5 Hyperlipidemia, unspecified; E11.51 Type 2 diabetes mellitus with diabetic peripheral angiopathy without gangrene; Z79.4 Long term (current) use of insulin; F17.200 Nicotine dependence, unspecified, uncomplicated; F43.10 Post-traumatic stress disorder, unspecified; I10 Essential (primary) hypertension; I25.10 Atherosclerotic heart disease of native coronary artery without angina pectoris; I51.3 Intracardiac thrombosis, not elsewhere classified; J44.9 Chronic obstructive pulmonary disease, unspecified; N40.0 Benign prostatic hyperplasia without lower urinary tract symptoms; Z77.090 Contact with and (suspected) exposure to asbestos; Z79.899 Other long term (current) drug therapy; Z82.49 Family history of ischemic heart disease and other diseases of the circulatory system; Z83.3 Family history of diabetes mellitus; Z85.820 Personal history of malignant melanoma of skin; Z95.5 Presence of coronary angioplasty implant and graft; F10.21 Alcohol dependence, in remission; F11.21 Opioid dependence, in remission; Z81.1 Family history of alcohol abuse and dependence; Z82.3 Family history of stroke; M19.042 Primary osteoarthritis, left hand; Z89.021 Acquired absence of right finger(s)
CPT/HCPCS: 34705; 80048; 83735; 84100; 85025; 85027; 85347; 86850; 86900; 86901; 94640

== ENCOUNTER → 2020-11-09 | Outpatient (CLI) | payer MEDICARE, OTHER ==
--- NOTE | 2020-11-09 15:16 | CTL ---
EXAMINATION TYPE: CT Low Dose Lung DATE OF EXAM ORDERED: 11/09/2020 HISTORY: . Lung cancer screening CT DLP: [address] CTDI: 2.07 mGy Automated exposure control for dose reduction was used. SCREENING VISIT: COMPARISON: None TECHNIQUE: Low dose computed tomography scan was performed through the chest at 1 mm thick sections a nd reconstructed images in the coronal plane at [address] DIAGNOSTIC QUALITY: Satisfactory FINDINGS: LUNGS: Interlobular septal thickening is noted. Multiple subpleural less than 5 mm pulmonary nodules seen. S cattered subsegmental areas of consolidation most typical of atelectasis. 2 mm nodule right apex late rally. Interlobular septal thickening suggestive of chronic interstitial pulmonary fibrosis most leonor ed at the lung bases. Bronchiectasis also seen centrally and with greatest involvement involving the lower lobes. Coronary artery calcification noted. Atherosclerotic change aorta. Heart size within normal limits. N o pleural calcification seen. No pneumothorax or pleural effusion. Indeterminate bilateral renal lesi ons due to artifact. Hypertrophic and degenerative change of the spine. IMPRESSION: 1. Sub-5 mm pulmonary nodules. 2. COPD with findings suggestive of interstitial pulmonary fibrosis. 3. Indeterminate bilateral renal lesions due to artifact appear to be present on the prior CT scan of the abdomen dated 03/23/2018. Suggestive of cysts on previous exam. Excellent 4. Dense coronary artery atherosclerotic changes. CT LUNG RAD AND CT CHEST RECOMMENDATION: Lung-Rad 2 Benign Appearance or Behavior: Continue annual sc reening with LDCT in 12 months.
== END ==
LOC: RADCTMAIN 14:24
DX: Z12.2 Encounter for screening for malignant neoplasm of respiratory organs (principal); Z87.891 Personal history of nicotine dependence
CPT/HCPCS: 71271

== ENCOUNTER 2021-01-02 06:30 | Day surgery (SDC) | payer OTHER ==
[2020-12-31 18:09] VITALS: BMI 29.7
[~2021-01-02 06:30] MED LIST changes: -DEXAMETHASONE SOD PHOSPHATE 10 MG/ML 1 ML VIAL IV ONE; +LIDOCAINE 1% (10MG/ML) FOR IV START INTRADERMA PRN; -MIDAZOLAM 2 MG/2 ML VIAL IV PRN; -ONDANSETRON 4 MG/2 ML VIAL IVP ONE; -SODIUM CHLORIDE 0.9% 1,000 ML in EMPTY BAG 1 BAG IV ONE; +TETRACAINE 0.5% OPHTH (PF) DROPS 4 ML BTL OP PRN; -ceFAZolin IN SWFI 2 GM/20 ML SYRINGE IVP ONE; -fentaNYL (PF) 50 MCG/ML 2 ML AMP IV PRN
[2021-01-02] MEDS: PHENYLEPHRINE 2.5% OPHTH DRP 2ML OP PRN ×3 (06:55→07:15)
[2021-01-02] MEDS: CYCLOPENTOLATE 1% OPHTH SOLN 2 ML BTL OP PRN ×3 (06:59→07:19)
[2021-01-02 07:13] VITALS: RESP 16; TEMP 97
[2021-01-02 07:19] LABS: Glucose,Whole Blood 92 mg/dL (75-99)
[2021-01-02] MEDS ORDERED: MIDAZOLAM 2 MG/2 ML VIAL ONE (07:35)
[2021-01-02] MEDS ORDERED: PROPOFOL 10 MG/ML 20 ML VIAL IV ONE (07:35)
[2021-01-02] MEDS ORDERED: EPINEPHrine (PF) 0.3 ML in BALANCED SALT IRRIG SOLN COMB2 500 ML IRRIGATION ONE (07:55)
[2021-01-02] MEDS ORDERED: BALANCED SALT IRRIG SOLN COMB2 15 ML IRRIG.SOLN IRRIGATION ONE (07:55)
[2021-01-02] MEDS ORDERED: EPINEPHrine (PF) 1 MG/ML AMP MISCELLANE ONE (07:55)
[2021-01-02] MEDS ORDERED: LIDOCAINE 1% (PF) 10MG/ML VIAL MISCELLANE ONE (07:55)
[2021-01-02] MEDS ORDERED: HYALURONATE SODIUM INTRAOCULAR 1 EACH SYRINGE (12MG/ML) INTRAOCULA ONE (08:02)
[2021-01-02] MEDS: TIMOLOL 0.5% OPHTH DROPS 5 ML BTL OP PRN ×2 (08:02→08:09)
[2021-01-02] MEDS: MOXIFLOXACIN HCL 0.5% DROPS 3 ML BTL OP PRN ×2 (08:03→08:09)
--- NOTE | 2021-01-02 08:17 | P.OP ---
Date of Procedure: 01/02/21 Preoperative Diagnosis: NS Postoperative Diagnosis: same Procedure(s) Performed: PIOL< OS Implants: [id number] 22.00 Anesthesia: MAC Surgeon: Gasper Yoon Pathology: none sent Condition: stable Disposition: same day Operative Findings: no complications
[2021-01-02 08:50] VITALS: BP 139/72; PULSE 72
--- NOTE | 2021-01-03 07:03 | OP ---
OPERATIVE REPORT DATE OF SURGERY: January 02, 2021 PROCEDURES: Phacoemulsification of cataract and intraocular lens implant of the left eye. PREOPERATIVE DIAGNOSES: Nuclear sclerosis and a history of exposure to Flomax. 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 SURGEON: Dr. Gasper Yoon. ANESTHESIA: Topical. ESTIMATED BLOOD LOSS: None. SPECIMEN TAKEN: None. NARRATIVE: After obtaining the appropriate consent, the patient was brought to the operating room. There he was placed under cardiac monitoring, prepped and draped in the usual sterile manner. He was approached from his left temporal side and at the 5 o'clock position an MVR blade was used to create a paracentesis port. Due to the notably small pupillary aperture, local anesthetic of 1% Xylocaine MPF with 1:1000 epinephrine MPF and balanced salt solution in a ratio 1-2 to 1 was injected into the anterior chamber. This was followed by stabilization of the anterior chamber with Amvisc. At the 3 o'clock position a 2.5 mm keratome was used to create a self-sealing corneal flap incision. Due to the poor response of any pupillary dilation, a 6.25 mm Malyugin ring was inserted on the pupillary sphincter without difficulty. The cystotome was then used to begin a continuous tear capsulorrhexis which was completed using the Utrata forceps. Hydrodissection and hydrodelineation of the lens were accomplished with balanced salt solution. Phacoemulsification of the lens utilizing phaco chop was accomplished in 23.42 seconds at 24% power. Additional lidocaine MPF solution was injected into the anterior chamber and this was followed by removal of the remaining cortex under irrigation and aspiration as well as careful polishing of the posterior capsule in capsule vacuum mode. Additional Amvisc was then used to stabilize the capsular bag and a Bausch and Lomb MX 60E 22.0 diopter posterior chamber intraocular lens was then inserted into the capsular bag without difficulty. Some of the viscoelastic was removed from behind the intraocular lens. This was followed by then removal of the Malyugin ring from the anterior chamber. Once again, followed by more thorough cleaning of the anterior chamber with irrigation and aspiration. The eye was brought to normal intraocular pressure through the paracentesis port and this was followed by 2 drops of moxifloxacin as well as 2 drops of 0.5% timolol. He was then lightly patched and shielded in the usual manner. There were no complications from the procedure. He tolerated the procedure well and was returned to outpatient recovery in good condition. NATO / MIN: [id number] /
== END 2021-01-02 09:00 | disposition home or self-care (01) ==
LOC: OR 06:30
PROVIDERS: ATTEND Ophthalmology
DX: H25.13 Age-related nuclear cataract, bilateral (principal); H21.81 Floppy iris syndrome; T44.6X5A Adverse effect of alpha-adrenoreceptor antagonists, initial encounter; Z79.899 Other long term (current) drug therapy; J43.9 Emphysema, unspecified; K21.9 Gastro-esophageal reflux disease without esophagitis; M19.90 Unspecified osteoarthritis, unspecified site; F31.9 Bipolar disorder, unspecified; F10.10 Alcohol abuse, uncomplicated; E11.9 Type 2 diabetes mellitus without complications; H52.03 Hypermetropia, bilateral; H52.4 Presbyopia; H52.223 Regular astigmatism, bilateral; F17.210 Nicotine dependence, cigarettes, uncomplicated; F20.9 Schizophrenia, unspecified
CPT/HCPCS: 66984; C1780; J2250; J0171; J2001

== ENCOUNTER 2021-01-23 07:33 | Day surgery (SDC) | payer OTHER ==
[2021-01-21 13:57] VITALS: BMI 29.1
[~2021-01-23 07:33] MED LIST changes: -LACTATED RINGERS 1,000 ML IV SCH; +MOXIFLOXACIN HCL 0.5% DROPS 3 ML BTL OP PRN; +TIMOLOL 0.5% OPHTH DROPS 5 ML BTL OP PRN
[2021-01-23] MEDS: PHENYLEPHRINE 2.5% OPHTH DRP 2ML OP PRN ×3 (08:01→08:14)
[2021-01-23] MEDS: CYCLOPENTOLATE 1% OPHTH SOLN 2 ML BTL OP PRN ×3 (08:05→08:17)
[2021-01-23] MEDS: LACTATED RINGERS 1,000 ML IV SCH ×2 (08:21→08:36)
[2021-01-23 08:32] LABS: Glucose,Whole Blood 96 mg/dL (75-99)
[2021-01-23 08:34] VITALS: TEMP 96.6
[2021-01-23] MEDS ORDERED: fentaNYL (PF) 50 MCG/ML 2 ML AMP ONE (08:35)
[2021-01-23] MEDS ORDERED: MIDAZOLAM 2 MG/2 ML VIAL ONE (08:35)
[2021-01-23] MEDS ORDERED: EPINEPHrine (PF) 0.3 ML in BALANCED SALT IRRIG SOLN COMB2 500 ML IRRIGATION ONE (08:51)
[2021-01-23] MEDS ORDERED: HYALURONATE SODIUM INTRAOCULAR 1 EACH SYRINGE (12MG/ML) INTRAOCULA ONE (08:52)
[2021-01-23] MEDS ORDERED: EPINEPHrine (PF) 1 MG/ML AMP MISCELLANE ONE (08:52)
[2021-01-23] MEDS ORDERED: LIDOCAINE 1% (PF) 10MG/ML VIAL MISCELLANE ONE (08:52)
[2021-01-23] MEDS ORDERED: BALANCED SALT IRRIG SOLN COMB2 15 ML IRRIG.SOLN IRRIGATION ONE (08:52)
--- NOTE | 2021-01-23 09:02 | P.OP ---
Date of Procedure: 01/23/21 Preoperative Diagnosis: NS Postoperative Diagnosis: same Procedure(s) Performed: PIOL< OD Implants: [id number] 22.00 Anesthesia: MAC Surgeon: Gasper Yoon Pathology: none sent Condition: stable Disposition: same day Indications for Procedure: blurry vision Operative Findings: no complications
[2021-01-23 09:09] VITALS: RESP 16
[2021-01-23 09:20] VITALS: BP 133/78; PULSE 59
--- NOTE | 2021-01-24 09:24 | OP ---
OPERATIVE REPORT DATE OF SURGERY: January 23, 2021. PROCEDURES: Phacoemulsification of cataract and intraocular lens implant of the right eye. PREOPERATIVE DIAGNOSIS: Nuclear sclerosis. POSTOPERATIVE DIAGNOSES: Nuclear sclerosis and floppy iris syndrome. SURGEON: Dr. Gasper Yoon. ANESTHESIA: Topical. ESTIMATED BLOOD LOSS: None. SPECIMEN TAKEN: None. NARRATIVE: After obtaining the appropriate consent, the patient was brought to the operating room. There he was placed on cardiac monitoring, prepped and draped in the usual sterile manner. He was approached from his right temporal side and at the 11 o'clock position, a paracentesis port was created using MVR blade. Through that opening, 1% Xylocaine MPF with 1:1000 epinephrine MPF and balanced salt solution in a ratio of was injected into the anterior chamber. The pupil size at this point was noted to remain at approximately 3 and half to 4 mm in diameter. Amvisc was used to stabilize the anterior chamber and at the 9 o'clock position, a 2.5 mm keratome was used to create a self- sealing corneal flap incision. At this point, due to the continued poor dilation of the pupil and his known experience with Flomax, a Malyugin ring of a 7 mm in diameter was inserted onto the pupillary sphincter without difficulty. A cystotome was then introduced to begin a continuous tear capsulorrhexis which was then completed using the Utrata forceps. Hydrodissection and hydrodelineation of the lens were accomplished with balanced salt solution. Phacoemulsification of the lens utilizing phaco chop was accomplished in 15.87 seconds at 19% power. Additional Xylocaine MPF was instilled into the anterior chamber. This was followed by irrigation aspiration of the remaining contents of the capsular bag as well as careful polishing of the posterior capsule in capsule vacuum mode. Additional Amvisc was then used to stabilize the capsular bag and a Bausch and Lomb MX 60E 22.0 diopter intraocular lens was then placed into the capsular bag without difficulty. The Malyugin ring was then disinserted and removed from the anterior chamber. This was followed by irrigation aspiration of as much of the viscoelastic around the intraocular lens as was feasible due to the miotic pupil and careful removal of any remaining viscoelastic from within the anterior chamber so as not to facilitate iris prolapse through the temporal incision. The eye was then checked for watertight integrity in the eye, brought to normal intraocular pressures through the paracentesis port with balanced salt solution. He then received 2 drops of 0.5% moxifloxacin as well as 2 drops of 0.5% timolol. He was then lightly patched and shielded in the usual manner. There were no complications from the procedure. He tolerated the procedure well and was returned to outpatient recovery in good condition. MMNABIL / MIN: [id number] /
== END 2021-01-23 09:40 | disposition home or self-care (01) ==
LOC: OR 07:33
PROVIDERS: ATTEND Ophthalmology
DX: E11.36 Type 2 diabetes mellitus with diabetic cataract (principal); H25.11 Age-related nuclear cataract, right eye; H43.813 Vitreous degeneration, bilateral; H52.4 Presbyopia; H52.223 Regular astigmatism, bilateral; E11.319 Type 2 diabetes mellitus with unspecified diabetic retinopathy without macular edema; Z98.42 Cataract extraction status, left eye; Z96.1 Presence of intraocular lens; I10 Essential (primary) hypertension; J43.9 Emphysema, unspecified; I25.10 Atherosclerotic heart disease of native coronary artery without angina pectoris; E78.5 Hyperlipidemia, unspecified; I71.4 Abdominal aortic aneurysm, without rupture; F20.0 Paranoid schizophrenia; F43.10 Post-traumatic stress disorder, unspecified; K21.9 Gastro-esophageal reflux disease without esophagitis; M19.90 Unspecified osteoarthritis, unspecified site; F31.9 Bipolar disorder, unspecified; Z95.5 Presence of coronary angioplasty implant and graft; Z90.89 Acquired absence of other organs; Z98.890 Other specified postprocedural states; F10.11 Alcohol abuse, in remission; Z82.61 Family history of arthritis; Z83.3 Family history of diabetes mellitus; Z80.9 Family history of malignant neoplasm, unspecified; Z82.49 Family history of ischemic heart disease and other diseases of the circulatory system; Z97.3 Presence of spectacles and contact lenses; F17.200 Nicotine dependence, unspecified, uncomplicated; Z79.4 Long term (current) use of insulin; Z79.899 Other long term (current) drug therapy
CPT/HCPCS: 66984; C1780; J2250; J0171; J3010; J2001

== ENCOUNTER 2021-07-21 19:30 | Inpatient (IN) | payer MEDICARE ==
[2021-07-21] MEDS ORDERED: HEPARIN SODIUM 1,000 UN/ML (10ML VL) ONE (19:44)
--- NOTE | 2021-07-21 20:12 | P.CRDCN ---
History of Present Illness History of present illness: HISTORY OF PRESENTING ILLNESS Patient is a 71 -year-old male with a history of AAA status post endovascular repair in 2018, hypertension, hyperlipidemia, diabetes mellitus type 2, reported CAD with prior stenting, hyperlipidemia, BPH, schizophrenia, PTSD, tobacco abuse and COPD. Patient is intubated and sedated and therefore history is supplied by chart. Patient apparently had been feeling fine most the day and then had sudden onset of syncope and cardiac arrest. There is no reported chest pain or pressure noted before this. He apparently was unresponsive for approximately 3 minutes before CPR was begun. He underwent approximately 20 minutes of CPR and underwent defibrillation with eventual ROSC. Unclear if patient received any sedating medications however per report patient was somewhat Aching over the vent. No other needful neurologic movements at this time. Initial EKG showed new A. fib with mild RVR with aVR elevation, diffuse ST depressions V4 through V6, inferior and lateral leads as well. Patient has been hypotensive and therefore was started on vasopressors. REVIEW OF SYSTEMS At the time of my exam: Unable to obtain secondary to unresponsive on vent PHYSICAL EXAMINATION Vital signs reviewed. CONSTITUTIONAL: Ill appearing, sedated on vent HEENT: Head is normocephalic. Pupils are equal, round. Sclerae anicteric. Mucous membranes of the mouth are moist. No JVD. +ET tube CHEST EXAMINATION: Lungs are clear to auscultation. No chest wall tenderness is noted on palpation or with deep breathing. HEART EXAMINATION: Regular rate and rhythm. S1, S2 heard. No murmurs, gallops or rub. ABDOMEN: Soft, nontender. Positive bowel sounds. EXTREMITIES: 2+ peripheral pulses, no lower extremity edema and no calf tenderness. NEUROLOGIC EXAMINATION: Patient is unresponsive on vent ASSESSMENT 1. Cardiac arrest s/p CPR approximately 20 minutes per report 2. Non-STEMI 3. New-onset atrial fibrillation 4. Altered mental status, monitor for anoxic brain injury 5. Cardiogenic shock 6. Acute kidney injury 7. Anemia 8. PAD 9. AAA status post endovascular repair 2018 10. Tobacco abuse 11. Diabetes mellitus type 2 12. Reported history of CAD 13. Lactic acidosis PLAN Overall patient prognosis grave. Patient appears to be in cardiogenic shock with non-STEMI with cardiac arrest. He did have approximately 20 minutes downtime. Given continued cardiogenic shock options were discussed with family and family would like full treatment. Therefore we will perform coronary angiography with possible PCI. Check 2-D echo. Evaluate for any neurologic recovery. Continue supportive care. 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 Past Anesthesia/Blood Transfusion Reactions: No Reported Reaction Date of Last Stent Placement:: 2002 Smoking Status: Current every day smoker - Past Family History Father Additional Family Medical History / Comment(s): Alcoholic Mother Family Medical History: CVA/TIA, Diabetes Mellitus, Myocardial Infarction (OR) Additional Family Medical History / Comment(s): Addiction Issues, Dementia Daughter(s) Family Medical History: Cancer Additional Family Medical History / Comment(s): Ovarian Cancer Medications and Allergies Home Medications Medication Instructions Recorded Confirmed Type Insulin Glargine [Lantus Vial] 49 units SQ HS 12/11/15 01/23/21 History Tamsulosin HCl [Flomax] 0.8 mg PO DAILY 12/11/15 01/23/21 History Albuterol Nebulized [Ventolin 2.5 mg INHALATION RT-TID PRN 03/06/17 01/23/21 History Nebulized] Omeprazole [PriLOSEC] 20 mg PO DAILY 03/06/17 01/23/21 History Perphenazine [Trilafon] 4 mg PO TID #90 tab 07/17/17 01/23/21 Rx Albuterol Inhaler (Mhu) [Ventolin 2 puff INHALATION RT-QID PRN 10/16/17 01/23/21 History Hfa Inhaler (Mhu)] Pioglitazone HCl [Actos] 15 mg PO DAILY 02/02/18 01/23/21 History amLODIPine BESYLATE [Norvasc] 10 mg PO DAILY 30 Days #30 tablet 02/10/18 01/23/21 Rx Cholecalciferol [Vitamin D3 (25 25 mcg PO DAILY 12/31/20 01/23/21 History Mcg = 1000 Iu)] Divalproex Sodium [Depakote] 1,500 mg PO HS 12/31/20 01/23/21 History amantadine HCL [Symmetrel] 100 mg PO DAILY 12/31/20 01/23/21 History Allergies Allergy/AdvReac Type Severity Reaction Status Date / Time alcohol AdvReac recovering Verified 01/23/21 08:23 alcoholic narcotics AdvReac does not Uncoded 01/23/21 08:23 want to receive any narcotics.
[2021-07-21] MEDS ORDERED: LIDOCAINE 1% INJ 10MG/ML (20 ML MDV) SQ ONE (20:24)
[2021-07-21] MEDS ORDERED: SODIUM CHLORIDE 0.9% 1,000 ML IV ONE (20:25)
[2021-07-21] MEDS ORDERED: NOREPINEPHRINE 8 MG in SODIUM CHLORIDE 0.9% 250 ML IV ONE (20:25)
[2021-07-21] MEDS ORDERED: VERAPAMIL SYRINGE (5 MG/10 ML) INTRAARTER ONE (20:26)
[2021-07-21] MEDS: EPINEPHrine 10 ML SYRINGE (0.1 MG/ML) IV ONE ×3 (20:33→21:04)
[2021-07-21] MEDS ORDERED: IOPAMIDOL-370 125ML BTL INJ ONE (20:50)
[2021-07-21] MEDS: PHENYLEPHRINE-0.9% NACL SYG 1,000 MCG/10 ML SYRINGE IV ONE ×2 (20:54→21:43)
[2021-07-21] MEDS ORDERED: IOPAMIDOL-370 100ML BTL INJ ONE ×2 (21:51→23:53)
[2021-07-21] MEDS ORDERED: ATROPINE SULFATE 0.1 MG/ML 10ML SYRINGE IV PRN (22:43)
[2021-07-21] MEDS ORDERED: RX INFO: IV CONTRAST WAS GIVEN 1 EACH MISC MISCELLANE PRN (22:43)
[2021-07-21] MEDS ORDERED: NITROGLYCERIN SL TABS 0.4 MG TAB SUBLINGUAL PRN (22:43)
[2021-07-21] MEDS ORDERED: ZOLPIDEM 5 MG TAB PO PRN (22:43)
[2021-07-21] MEDS ORDERED: MAG HYDROX/AL HYDROX/SIMETH 30 ML CUP PO PRN (22:43)
[2021-07-21] MEDS ORDERED: HEPARIN SODIUM 1,000 UN/ML (10ML VL) IV PRN (22:46)
[2021-07-21] MEDS ORDERED: HEPARIN SODIUM,PORCINE 12,500 UNIT in DEXTROSE 5% IN WATER 500 ML IV SCH ×2 (23:00)
[2021-07-21] MEDS ORDERED: TIROFIBAN BOLUS 12.5MG/250 ML BAG IV ONE (23:45)
[2021-07-21] MEDS ORDERED: TIROFIBAN 12.5MG-250ML NS 250 ML IV ONE (23:48)
[2021-07-21 23:55] LABS: Glucose,Whole Blood 145 mg/dL (75-99)
[2021-07-21] MEDS ORDERED: propofoL 100 ML IV ONE (23:56)
[2021-07-22] MEDS ORDERED: TIROFIBAN 12.5MG-250ML NS 250 ML IV SCH
[2021-07-22] MEDS ORDERED: HEPARIN SOD,PORK IN 0.45% NACL 25,000 UNIT in 0.45% NACL 1 250ML.BAG IV SCH
[2021-07-22] MEDS: NOREPINEPHRINE 8 MG in SODIUM CHLORIDE 0.9% 250 ML IV SCH ×3 (00:34→06:25)
--- NOTE | 2021-07-22 00:53 | XR ---
EXAMINATION TYPE: XR chest 1V DATE OF EXAM: 07/22/2021 COMPARISON: 10/27/2016 HISTORY: Short of breath FINDINGS: Endotracheal tube is 2 cm from the shalini. There is moderately severe pulmonary airspace edema. Ther e is left jugular catheter with tip in the superior vena cava. No pneumothorax. There are chest leads . IMPRESSION: There is severe pulmonary edema which is new compared to old exam.
[2021-07-22 01:42] LABS: Calcium 7.4 mg/dL (8.4-10.2)
[2021-07-22 01:44] LABS: HCT 34.6 % (39.0-53.0); HGB 10.4 gm/dL (13.0-17.5); Hypochromasia Marked; MCH 33.2 pg (25.0-35.0); MCV 110.6 fL (80.0-100.0); Macrocytosis Marked; Mean Platelet Volume 9.3; Platelet Count 183 k/uL (150-450); RBC 3.13 m/uL (4.30-5.90); RDW 14.1 % (11.5-15.5)
[2021-07-22 01:48] LABS: Magnesium 2.2 mg/dL (1.6-2.3)
[2021-07-22 01:58] LABS: INR 1.7 (<1.2); Prothrombin Time 16.8 sec (9.0-12.0)
[2021-07-22 02:02] LABS: Fibrinogen 229 mg/dL (200-500)
[2021-07-22 02:04] LABS: Partial Thromboplastin Time >200.0 sec (22.0-30.0)
[2021-07-22 03:00] LABS: Band Neutrophils % 4 %; Eosinophils # (M) 0.07 k/uL (0-0.7); Lymphocytes # (M) 1.61 k/uL (1.0-4.8); Metamyelocytes # (M) 0.14 k/uL (0); Metamyelocytes % 2 %; Monocytes # (M) 0.14 k/uL (0-1.0); Neutrophils % (M) 70 %; Nucleated Red Blood Cells 2 /100 WBC (0-0); Total Cells Counted 200
[2021-07-22 03:16] VITALS: BP 90/40
[2021-07-22 03:52] LABS: ABG Base Excess -24.3 mmol/L; ABG PCO2 43 mmHg (35-45); ABG PO2 74 mmHg (83-108); ABG TCO2 10 mmol/L (19-24); Allen Test Performed? Yes
[2021-07-22 03:53] LABS: ABG HCO3 9 mmol/L (21-25); ABG PH 6.91 (7.35-7.45)
[2021-07-22] MEDS ORDERED: SODIUM BICARB 8.4% 50 ML SYR (1 MEQ/ML) IV STA (04:04)
[2021-07-22] MEDS ORDERED: DEXTROSE 5% IN WATER 1,000 ML with SODIUM BICARB (1 MEQ/ML) 150 ML IV SCH (04:30)
[2021-07-22 06:21] LABS: ABG Base Excess -22.9 mmol/L; ABG PCO2 46 mmHg (35-45); ABG PO2 72 mmHg (83-108); ABG TCO2 11 mmol/L (19-24); Allen Test Performed? Yes
[2021-07-22 06:22] LABS: ABG PH 6.92 (7.35-7.45)
[2021-07-22 06:23] LABS: ABG HCO3 10 mmol/L (21-25)
[2021-07-22] MEDS ORDERED: NOREPINEPHRINE 32 MG in SODIUM CHLORIDE 0.9% 218 ML IV SCH (06:30)
[2021-07-22 07:12] LABS: Glucose,Whole Blood 90 mg/dL (75-99)
[2021-07-22] MEDS ORDERED: SODIUM BICARB 8.4% 50 ML SYR (1 MEQ/ML) ONE ×3 (07:20→08:37)
[2021-07-22 08:15] VITALS: TEMP 99.3
[2021-07-22] MEDS ORDERED: EPINEPHrine 10 ML SYRINGE (0.1 MG/ML) ONE (08:35)
--- NOTE | 2021-07-22 08:42 | XR ---
EXAMINATION TYPE: XR chest 1V portable DATE OF EXAM: 07/22/2021 COMPARISON: Chest x-ray 07/22/2021 HISTORY: Left ventricular assist device placement, intubated TECHNIQUE: Single frontal view of the chest is obtained. FINDINGS: Endotracheal tube is overlying the tracheal air column. There is a left jugular central ve nous catheter with the distal tip overlying the superior vena cava, left ventricular assist device vital s been placed, tip overlying the ascending aorta There is some improvement in aeration compared to prior exam. No evident pneumothorax or pleural effu guerrero. Additional device appears to be projecting overlying the right or left ventricle. Cardiac mediastinal silhouette not likely changed. IMPRESSION: Instrumentation is similar to prior exam, aeration appears to be improved
[2021-07-22] MEDS ORDERED: PANTOPRAZOLE 40 MG/10 ML VIAL IVP SCH (09:00)
[2021-07-22] MEDS ORDERED: CHLORHEXIDINE GLUCONATE 15 ML CUP MUCOUS MEM SCH (09:00)
--- NOTE | 2021-07-22 09:01 | P.CNPUL ---
History of Present Illness Consult date: 07/22/21 Chief complaint: cardiac arrest History of present illness: Patient is a 71 -year-old male with a history of AAA status post endovascular repair in 2018, hypertension, hyperlipidemia, diabetes mellitus type 2, reported CAD with prior stenting, hyperlipidemia, BPH, schizophrenia, PTSD, tobacco abuse and COPD. Patient is intubated and sedated and therefore history is supplied by chart. Patient apparently had been feeling fine most the day and then had sudden onset of syncope and cardiac arrest. There is no reported chest pain or pressure noted before this. He apparently was unresponsive for approximately 3 minutes before CPR was begun. He underwent approximately 20 minutes of CPR and underwent defibrillation with eventual ROSC. Unclear if patient received any sedating medications however per report patient was somewhat Aching over the vent. No other needful neurologic movements at this time. Initial EKG showed new A. fib with mild RVR with aVR elevation, diffuse ST depressions V4 through V6, inferior and lateral leads as well. Patient has been hypotensive and therefore was started on vasopressors. The patient was initially taken to [facility]. Following that he was transferred to [facility]. He Was Taken to Cardiac Catheterization and the Patient Was Given a Stent to the LAD and the Official Cardiac Catheterization Report Is Not Available to Me at This Point in Time. The Patient Was Also Given a Impella Device Which Is Currently Augmenting It P6 with a Flow of 3.2 L Per Minute. The Patient Is Completely Unresponsive on Low-Dose Propofol Running at Time of Her Respiratory Kilogram Per Minute. The patient currently is intubated on a mechanical ventilator. He was on assist-control at the rate of 16, tidal volume of 450, FiO2 of 100% with a PEEP of 10. Chest x-ray showing significant consolidation of the right lung probably due to aspiration. ET tube is in a good location. There is also infiltration of the left yet there is significant consolidation is present on the right. The most recent blood gas showed a pH of 6.9 with a pCO2 of 46 and pO2 of 72 and this was done on the above-mentioned ventilator setting. No significant orotracheal secretions. The patient is quite impressed with the mechanical ventilator. He is completely unresponsive. During the course of his ICU treatment, the patient had 2 cardiac arrests. The first one was a asystole and the second one was a PEA. He was given CPR. He was given epinephrine and bicarb infusions. In both of these cords and cardiac arrests, the patient recovered within 5 minutes and there was return of smoking circulation. Most recent blood pressure on the monitor this 46/33. The mean arterial pressure on the Impella is at 52 and subsequently dropped down to 46. Norepinephrine running at 1 mcg/kg per minute. The patient is also on a bicarb infusion running at the rate of 150 mL an hour. No urine output. Clinically unresponsive. No pulses in lower extremities bilaterally. 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 Past Anesthesia/Blood Transfusion Reactions: No Reported Reaction Date of Last Stent Placement:: 2002 Smoking Status: Current every day smoker - Past Family History Father Additional Family Medical History / Comment(s): Alcoholic Mother Family Medical History: CVA/TIA, Diabetes Mellitus, Myocardial Infarction ([place]) Additional Family Medical History / Comment(s): Addiction Issues, Dementia Daughter(s) Family Medical History: Cancer Additional Family Medical History / Comment(s): Ovarian Cancer Medications and Allergies Home Medications Medication Instructions Recorded Confirmed Type Insulin Glargine [Lantus Vial] 49 units SQ HS 12/11/15 07/21/21 History Tamsulosin HCl [Flomax] 0.4 mg PO DAILY 12/11/15 07/21/21 History Albuterol Nebulized [Ventolin 2.5 mg INHALATION RT-TID PRN 03/06/17 07/21/21 History Nebulized] Omeprazole [PriLOSEC] 20 mg PO DAILY 03/06/17 07/21/21 History Perphenazine [Trilafon] 4 mg PO TID #90 tab 07/17/17 07/21/21 Rx amLODIPine BESYLATE [Norvasc] 10 mg PO DAILY 30 Days #30 tablet 02/10/18 07/21/21 Rx Cholecalciferol [Vitamin D3 (25 25 mcg PO DAILY 12/31/20 07/21/21 History Mcg = 1000 Iu)] amantadine HCL [Symmetrel] 100 mg PO BID 12/31/20 07/21/21 History Albuterol Sulfate [Ventolin HFA] 2 puff INHALATION RT-QID PRN 07/21/21 07/21/21 History Atorvastatin [Lipitor] 80 mg PO HS 07/21/21 07/21/21 History Divalproex ER [Depakote ER] 1,500 mg PO HS 07/21/21 07/21/21 History Empagliflozin [Jardiance] 10 mg PO DAILY 07/21/21 07/21/21 History Ibuprofen [Motrin] 800 mg PO TID PRN 07/21/21 07/21/21 History Allergies Allergy/AdvReac Type Severity Reaction Status Date / Time alcohol AdvReac recovering Verified 07/21/21 21:44 alcoholic Barbiturates AdvReac Unknown Verified 07/21/21 21:44 haloperidol AdvReac Unknown Verified 07/21/21 21:44 Opioids - Morphine Analogues AdvReac Does not Verified 07/21/21 21:44 want Opioids-Meperidine and AdvReac Does not Verified 07/21/21 21:44 Related want narcotics AdvReac does not Uncoded 07/21/21 21:44 want to receive any narcotics. Physical Exam Vitals: Vital Signs Temp Pulse Resp BP Pulse Ox 07/22/21 08:00 99.3 F 85 25 H 84 L 07/22/21 07:45 89 24 85 L 07/22/21 07:30 93 26 H 91 L 07/22/21 07:15 55 L 24 90 L 07/22/21 07:00 82 19 89 L 07/22/21 06:45 84 20 89 L 07/22/21 06:30 85 25 H 89 L 07/22/21 06:15 84 25 H 89 L 07/22/21 06:00 84 26 H 89 L 07/22/21 05:45 84 25 H 89 L 07/22/21 05:30 86 19 88 L 07/22/21 05:15 89 0 L 85 L 07/22/21 05:00 91 26 H 91 L 07/22/21 04:45 96 25 H 85 L 07/22/21 04:30 98 23 85 L 07/22/21 04:15 99 F 80 24 89 L 07/22/21 04:00 80 25 H 87 L 07/22/21 03:45 81 24 87 L 07/22/21 03:30 81 24 88 L 07/22/21 03:15 85 25 H 87 L 07/22/21 03:00 91 23 90/40 86 L 07/22/21 02:45 92 22 84/63 87 L 07/22/21 02:30 93 23 88 L 07/22/21 02:15 93 22 88 L 07/22/21 02:00 97.4 F L 92 21 87 L 07/22/21 01:45 90 21 89 L 07/22/21 01:30 88 21 89 L 07/22/21 01:15 87 17 88 L 07/22/21 01:00 87 18 89 L 07/22/21 00:45 87 21 89 L 07/22/21 00:30 84 21 89 L 07/22/21 00:15 86 18 83/63 89 L 07/22/21 00:00 93.4 F L 86 16 91/65 86 L 07/21/21 23:44 86 22 Intake and Output 07/21/21 07/22/21 07/22/21 22:59 06:59 14:59 Intake Total 510 1103.739 341.177 Output Total 20 0 Balance 510 1083.739 341.177 Intake: IV 510 125 Dextrose 5% in Water 1, 125 000 ml @ 125 mls/hr IV . Q9H12M JEFFERY with Sodium Bicarb (1 Meq/ml) 150 ml Rx#:[id number] Intake, IV Titration 1103.739 216.177 Amount Dextrose 5% in Water 1, 125 125 000 ml @ 125 mls/hr IV . Q9H12M JEFFERY with Sodium Bicarb (1 Meq/ml) 150 ml Rx#:[id number] Heparin Sod,Pork in 0.45% 6.761 NaCl 25,000 unit In 0.45 % NaCl 1 250ml.bag @ 12 UNITS/KG/HR 9.12 mls/hr IV .Q24H JEFFERY Rx#: [id number] Norepinephrine 8 mg In 468.050 81.618 Sodium Chloride 0.9% 250 ml @ 0.05 MCG/KG/MIN 7. 353 mls/hr IV .Q24H [facility] Rx#:[id number] Sodium Chloride 0.9% 1, 460 000 ml @ 0 mls/hr IV .STK -[facility] Rx#:[id number] propofoL 1,000 mg In 43.928 9.559 Empty Bag 1 bag @ Titrate IV .Q0M [facility] Rx#: [id number] Output: Urine 20 0 Other: Voiding Method Indwelling Catheter Indwelling Catheter Weight 76 kg 74.1 kg ABP, PAP, CO, CI - Last 8 Hours Arterial Blood Pressure 53/39 Arterial Blood Pressure 55/41 Arterial Blood Pressure 57/35 Arterial Blood Pressure 58/32 Arterial Blood Pressure 52/40 Arterial Blood Pressure 60/42 Arterial Blood Pressure 56/42 Arterial Blood Pressure 60/41 Arterial Blood Pressure 60/41 Arterial Blood Pressure 57/39 Arterial Blood Pressure 58/39 Arterial Blood Pressure 66/48 Arterial Blood Pressure 72/47 Arterial Blood Pressure 75/46 Arterial Blood Pressure 69/47 Arterial Blood Pressure 70/53 Arterial Blood Pressure 72/52 Arterial Blood Pressure 71/52 Arterial Blood Pressure 73/50 Arterial Blood Pressure 72/52 Arterial Blood Pressure 71/53 Arterial Blood Pressure 74/54 Arterial Blood Pressure 77/54 Arterial Blood Pressure 75/53 Arterial Blood Pressure 76/56 Arterial Blood Pressure 74/52 Arterial Blood Pressure 72/52 Arterial Blood Pressure 70/52 Arterial Blood Pressure 69/48 Gen. appearance the patient is unresponsive, intubated on a mechanical ventilator. Orotracheal tube are both in place. Head exam was generally normal. There was no scleral icterus or corneal arcus. Mucous membranes were moist. Neck was supple and without jugular venous distension, thyromegaly, or carotid bruits. Carotids were easily palpable bilaterally. There was no adenopathy. Lungs sounds are diminished bilaterally along with scattered expiratory rhonchi and wheezes Cardiac exam revealed the PMI to be normally situated and sized. The rhythm was regular and no extrasystoles were noted during several minutes of auscultation. The first and second heart sounds were normal and physiologic splitting of the second heart sound was noted. There were no murmurs, rubs, clicks, or gallops. Abdominal exam revealed normal bowel sounds. The abdomen was soft, non-tender, and without masses, organomegaly, or appreciable enlargement of the abdominal aorta. Extremities revealed no pulses. The patient is cold and clammy and the skin is mottled and all 4 extremities. No digital clubbing. Neurologically, the patient is unresponsive and pupils around 3 mm in size. No response to any painful stimulation. No clonus. No Babinski. Reflexes are diminished in all 4 extremities. The patient is triggering the mechanical ventilator. No nystagmus. No facial asymmetry. Results - Laboratory Findings CBC and BMP: 07/22/21 00:30 07/22/21 00:30 ABG ABG pH 6.92 (7.35-7.45) L* 07/22/21 06:20 ABG pCO2 46 mmHg (35-45) H 07/22/21 06:20 ABG pO2 72 mmHg (83-108) L 07/22/21 06:20 ABG O2 Saturation 86.0 % (94-97) L 07/22/21 06:20 PT/INR, D-dimer PT 16.8 sec (9.0-12.0) H 07/22/21 00:30 INR 1.7 (<1.2) H 07/22/21 00:30 Abnormal lab findings: Abnormal Labs 07/21/21 07/22/21 07/22/21 23:53 00:30 00:30 RBC 3.13 L Hgb 10.4 L Hct 34.6 L MCV 110.6 H MCHC 30.0 L Metamyelocytes # (Man) 0.14 H Nucleated RBCs 2 H Macrocytosis Marked A PT 16.8 H INR 1.7 H APTT >200.0 H* ABG pH ABG pCO2 ABG pO2 ABG HCO3 ABG Total CO2 ABG O2 Saturation ABG Lactic Acid Sodium Chloride Carbon Dioxide BUN Creatinine Glucose POC Glucose (mg/dL) 145 H Calcium Lactate Dehydrogenase 07/22/21 07/22/21 07/22/21 00:30 00:30 03:48 RBC Hgb Hct MCV MCHC Metamyelocytes # (Man) Nucleated RBCs Macrocytosis PT INR APTT ABG pH 6.91 L* ABG pCO2 ABG pO2 74 L ABG HCO3 9 L* ABG Total CO2 10 L ABG O2 Saturation 85.0 L ABG Lactic Acid 11.4 H* Sodium 136 L Chloride 108 H Carbon Dioxide 11 L BUN 26 H Creatinine 1.77 H Glucose 156 H POC Glucose (mg/dL) Calcium 7.4 L Lactate Dehydrogenase 3881 H 07/22/21 07/22/21 05:05 06:20 RBC Hgb Hct MCV MCHC Metamyelocytes # (Man) Nucleated RBCs Macrocytosis PT INR APTT ABG pH 6.92 L* ABG pCO2 46 H ABG pO2 72 L ABG HCO3 10 L* ABG Total CO2 11 L ABG O2 Saturation 86.0 L ABG Lactic Acid 15.5 H* Sodium Chloride Carbon Dioxide BUN Creatinine Glucose POC Glucose (mg/dL) Calcium Lactate Dehydrogenase - Diagnostic Findings Chest x-ray: image reviewed Assessment and Plan Plan: 1 acute cardiac arrest, secondary 2 acute non-ST segment elevation myocardial infarction. The patient underwent emergent cardiac catheterization and stenting of the LAD. The patient had a 20 minute downtime during the initial resus citation with return of smoking circulation. Post cardiac catheterization, the patient came into the ICU and the patient was profoundly hypotensive and acidotic and the patient had 2 episodes of cardiac arrest and both of these episodes were less than 5 minutes. Initial cardiac arrest was related to PDA and a second one was asystole. Currently is on high-dose pressors and the patient is also being augmented with Impella for hemodynamic support 2 cardiogenic shock secondary to above, currently on norepinephrine infusion at 1 g per kilogram per minute in addition to Impella, P6, augmented flow is at 3.2 L per minute, mean arterial pressure is for the eighth. 3 unresponsiveness secondary to hypoxic encephalopathy 4 acute hypoxic respiratory failure secondary to above and the patient has bilateral pulmonary infiltrates with extensive consolidation on the right, most likely secondary to aspiration 5 acute kidney injury, oliguric at this stage 6 severe metabolic acidosis, LActic acid is 15 7 new-onset atrial fibrillation, in sinus rhythm for now 8 abdominal aortic aneurysm with a previous endovascular stent grafting back in 2018 9 COPD 10 diabetes mellitus type 2 10 peripheral vascular disease Plan Patient carries a very poor prognosis. High likelihood for another cardiac arrest and the patient is hemodynamically unstable and hypotensive despite the above-mentioned support. From the pulmonary standpoint, I'm going to do increased arrest 30-32, repeat the blood gas, with the patient IV Zosyn as an empiric antibiotic coverage regarding the possibility of a aspiration pneumonia. Continue hemodynamic support with pressors, Impella, IV fluids. The patient was given bicarb. The patient is currently on a bicarb infusion. Continue antiplatelet agents/ aggrestat. Very poor prognosis. High likelihood for mortality based on the above-mentioned comorbidities. Time with Patient: Greater than 30
[2021-07-22] MEDS ORDERED: PIPERACILLIN-TAZOBACTAM 3.375 GM in SODIUM CHLORIDE 0.9% 100 ML IVPB SCH (09:30)
--- NOTE | 2021-07-22 09:59 | ECHOF ---
Referral Reason:Placement of Left Ventricular Assist Device MEASUREMENTS -------- HEIGHT: 180.3 cm WEIGHT: 73.9 kg BP: FINDINGS -------- This was a technically difficult study with suboptimal views. Limited Study Overall left ventricular systolic function is severely impaired with, an EF between 20 - 25 %. There is no pericardial effusion. CONCLUSIONS -------- 1. Overall left ventricular systolic function is severely impaired with, an EF between 20 - 25 %. 2. There is no pericardial effusion. TONNAGE COMPILATION CLERK: Joaquina Coker [facility]
[2021-07-22 10:01] VITALS: PULSE 71; RESP 32
[2021-07-22] MEDS ORDERED: ATORVASTATIN 80 MG TAB PO SCH (21:00)
--- NOTE | 2021-08-07 09:29 | P.PRCINT ---
Percutaneous Coronary Int. - Percutaneous Coronary Intervention Percutaneous Coronary Intervention: PROCEDURES PERFORMED: Left heart catheterization, bilateral coronary angiography, Impella CP placement, PCI left main with 3.5 x 23mm Xience DAVIDE, post dilated with 3.5 NC balloon, left SFA antegrade sheath placement for externalized femoral to femoral bypass due to occlusive Impella CP sheath INDICATION: NSTEMI, cardiac arrest, cardiogenic shock HISTORY: Patient is a 71-year-old male with history of hypertension, hyperlipidemia, PVD, tobacco abuse, diabetes mellitus type 2, reported previous CAD who was feeling fairly well and then started having episodes of chest tightness and shortness breath. Patient then had cardiac arrest requiring approximately 20 minutes of CPR. Patient was found to have aVR elevation with diffuse ST depressions and hypotensive requiring vasopressors with NSTEMI and therefore recommendation was for urgent catheterization. CONSENT:I have discussed the risks, benefits and alternative therapies for the above-mentioned procedure with spouse and spouse has indicated understanding and acceptance of the risks and procedures discussed. PROCEDURE: After the risks, benefits and alternatives of the above mentioned procedure explained in detail with the , informed consent was obtained. Patient was taken to the catheterization lab and prepped and draped in usual fashion. 1% lidocaine was used to anesthetize the right radial artery. A 6- [place] sheath was placed in the right radial artery using modified Seldinger technique. Right coronary angiography was performed with a 5FR FR 5 catheter. Left coronary angiography was somewhat difficult from a radial approach with s uperior left main and short aorta with tortuous subclavian takeoff. While attempts at canulating left main patient's BP which was already MAP of approximately 60 decreased to MAP of 40's. Therefore the decision was made to place an Impella. Right femoral access was obtained with a micropuncture however the distal end of the EVAR graft appeared kinked or tortuous and unable to pass a wire up the EVAR graft. Therefore right femoral site was abandonded and pressure held. Next left femoral access was obtained using ultrasound guidance. There was diffuse plaquing of the common femoral artery and therefore a more superior stick was attempted however noted to be in the external iliac and therefore this was pulled and pressure held. Next left common femoral access was obtained and the sheath was upsized to a 14Fr Impella sheath. Next a 6Fr pigtail was inserted into the left ventricle and pressure measurements were obtained. The LVEDP was elevated at 35mmHg. While preparing the Impella patient lost pulses and CPR was intiated. The Impella CP was then inserted into the LV and once inserted, patient's BP returned and he had ROSC. Next a 6Fr sheath was placed through the Impella sheath. Through this 6Fr sheath, a 6Fr CLS 3.0 guide was used to engage the left main. Left coronary angiography showed a calcified 95% left main. The circumflex was wired with a 0.014 BMW wire and then a Fielder XT wire was used to wire the LAD as BMW and whisper wire had failed. Next balloon angioplasty was performed of the left main into LAD with a 3.0 x 12mm, 3.25 x 12mm NC and 3.5 x 12mm NC balloons. There was still mild amount of wasting of the balloon and therefore an angiosculpt balloon was attempted to be wired however was unsuccessful. Atherectomy was deferred since this was a bifurcation disease and did not want to lose wire position of the circumflex. Next with the help of a Guideliner a 3.5 x 23mm Xience DAVIDE was advanced into the left main into LAD and deployed. The proximal left main portion of the stent was post dilated with a 3.5mm NC balloon. The wire was removed and final angiograms were performed. Pre intervention there was LEOPOLDO 2 flow with 95% stenosis and post intervention there was LEOPOLDO 3 flow with 10% residual stenosis. There was a 50% proximal left circumflex stenosis however this did no appear flow limiting and given contrast threshold and unclear neurologic status, any further intervention was deferred. Right femoral angiogram was performed through the Impella sheath which showed the sheath to be occlusive. Therefore the decision was made to make an externalized bypass. A 6Fr sheath was placed in the left SFA in antegrade fashion using ultrasound guidance. This was attached to the other 6Fr sheath. The sheaths were sutured in place. The right radial sheath was removed and a TR band was placed with hemostasis achieved. The patient remained borderline hypotensive despite Impella CP at 3.5 - 4.0 L/min. Conscious Sedation: Patient was monitored under the direct supervision of vision of myself for conscious sedation using Versed and fentanyl for a total duration of 140 minutes HEMODYNAMICS: Ao: 75/41 LV: 70/18, LVEDP 38 SELECTIVE CORONARY ARTERIOGRAPHY: LEFT MAIN: The left main is a large caliber vessel which bifurcates into the LAD and circumflex. There is heavily calcified 95% left main stenosis which mainly extends into the LAD. LEFT ANTERIOR DESCENDING CORONARY ARTERY: LAD is a large caliber vessel which wraps around to the apex. There is an ostial LAD 80% stenosis. There is a mid LAD 60-70% stenosis. LEFT CIRCUMFLEX CORONARY ARTERY: Left circumflex is a moderate to large caliber vessel with a proximal 50% circumflex stenosis and otherwise mild disease. RIGHT CORONARY ARTERY: The right coronary artery is a small caliber vessel which is nondominant and has mild disease. FINAL IMPRESSION: 1. CAD as described above including left main 95% stenosis, proximal LAD 80% stenosis, mid LAD 60-70% stenosis, proximal circumflex 50% stenosis. 2. Cardiogenic shock, s/p Impella CP placement 3. S/p successful PCI left main into LAD with 3.5 x 23mm Xience DAVIDE, post dilated with 3.5 NC balloon 4. Occlusive left femoral Impella sheath, s/p left femoral to left SFA antegrade externalized bypass PLAN: 1. Aggressive risk factor modification per most recent ACC/AHA guidelines. 2. An OG tube was unable to be obtained and therefore we will continue Aggrastat until Brillinta can be given. 3. Continue Impella and attempt to wean as able. 4. Monitor neurologic status.
--- NOTE | 2021-08-07 09:42 | P.DS ---
Providers Date of admission: 07/21/21 19:50 Attending physician: Mario Mullins DO Consults: 07/21/21 22:44 Consult Physician Routine Consulting Provider: [facility] Consult Reason/Comments: Post Interventional patient Do you want consulting provider notified?: Already Contacted 07/22/21 02:11 Consult Physician Stat Consulting Provider: Xavier Zafar Consult Reason/Comments: ICU management Do you want consulting provider notified?: Already Contacted 07/22/21 06:17 Consult Physician Urgent Consulting Provider: Phani Mullen Consult Reason/Comments: low urine output Do you want consulting provider notified?: Yes, Notify in am [facility] Course: Patient is a 71-year-old male with history of hypertension, hyperlipidemia, PVD, tobacco abuse, diabetes mellitus type 2, reported previous CAD who was feeling fairly well and then started having episodes of chest tightness and shortness breath with fairly acute onset. Patient then had cardiac arrest requiring approximately 20 minutes of CPR. Patient was found to have aVR elevation with diffuse ST depressions and hypotensive requiring vasopressors with NSTEMI and therefore recommendation was for urgent catheterization. He had further workup at [facility] and was later found to be positive for COVID. Initial CXray showed diffuse interstitial infiltrates which may be from heart failure vs COVID pneumonia. Patient wasd transferred to [facility] for heart catheterization. Heart catheterization showed left main 95% stenosis and patient was in cardiogenic shock with an elevated LVEDP of 35. Therefore Impella CP LVAD was placed and underwent stenting of the left main. He continued to require the Impella and an externalized bypass was performed. Echo showed severe cardiomyopathy EF 20-25%. Patient had multiorgan failure and despite LVAD and pressors and Code Blue 07/22 and 07/22. Family was notified. Primary diagnosis of acute COVID pneumonia with septic shock complicated by additional cardiogenic shock. Plan - Discharge Summary Discharge Rx Participant: No New Discharge Prescriptions: No Action Tamsulosin HCl [Flomax] 0.4 mg PO DAILY Insulin Glargine [Lantus Vial] 49 units SQ HS Omeprazole [PriLOSEC] 20 mg PO DAILY Albuterol Nebulized [Ventolin Nebulized] 2.5 mg INHALATION RT-TID PRN PRN Reason: Shortness Of Breath Perphenazine [Trilafon] 4 mg PO TID #90 tab amLODIPine BESYLATE [Norvasc] 10 mg PO DAILY 30 Days #30 tablet Empagliflozin [Jardiance] 10 mg PO DAILY Divalproex ER [Depakote ER] 1,500 mg PO HS Atorvastatin [Lipitor] 80 mg PO HS Cholecalciferol [Vitamin D3 (25 Mcg = 1000 Iu)] 25 mcg PO DAILY amantadine HCL [Symmetrel] 100 mg PO BID Ibuprofen [Motrin] 800 mg PO TID PRN PRN Reason: Pain Albuterol Sulfate [Ventolin HFA] 2 puff INHALATION RT-QID PRN PRN Reason: Shortness Of Breath Discharge Medication List Insulin Glargine [Lantus Vial] 49 units SQ HS 12/11/15 [History] Tamsulosin HCl [Flomax] 0.4 mg PO DAILY 12/11/15 [History] Albuterol Nebulized [Ventolin Nebulized] 2.5 mg INHALATION RT-TID PRN 03/06/17 [History] Omeprazole [PriLOSEC] 20 mg PO DAILY 03/06/17 [History] Perphenazine [Trilafon] 4 mg PO TID #90 tab 07/17/17 [Rx] amLODIPine BESYLATE [Norvasc] 10 mg PO DAILY 30 Days #30 tablet 02/10/18 [Rx] Cholecalciferol [Vitamin D3 (25 Mcg = 1000 Iu)] 25 mcg PO DAILY 12/31/20 [History] amantadine HCL [Symmetrel] 100 mg PO BID 12/31/20 [History] Albuterol Sulfate [Ventolin HFA] 2 puff INHALATION RT-QID PRN 07/21/21 [History] Atorvastatin [Lipitor] 80 mg PO HS 07/21/21 [History] Divalproex ER [Depakote ER] 1,500 mg PO HS 07/21/21 [History] Empagliflozin [Jardiance] 10 mg PO DAILY 07/21/21 [History] Ibuprofen [Motrin] 800 mg PO TID PRN 07/21/21 [History] Discharge Disposition: - Preliminary Cause of Preliminary Cause of : Acute COVID pneumonia
== END 2021-07-22 12:20 | disposition expired | DRG 853 ==
LOC: 2SICU 19:50
PROVIDERS: ADMIT Internal Medicine; ATTEND Internal Medicine
PROC: 4A023N7 Measurement of Cardiac Sampling and Pressure, Left Heart, Percutaneous Approach (ICD-10-PCS; 2021-07-21)
PROC: B2111ZZ Fluoroscopy of Multiple Coronary Arteries using Low Osmolar Contrast (ICD-10-PCS; 2021-07-21)
PROC: 5A1935Z Respiratory Ventilation, Less than 24 Consecutive Hours (ICD-10-PCS; 2021-07-21)
PROC: 5A12012 Performance of Cardiac Output, Single, Manual (ICD-10-PCS; 2021-07-21)
PROC: 3E033XZ Introduction of Vasopressor into Peripheral Vein, Percutaneous Approach (ICD-10-PCS; 2021-07-21)
PROC: 027034Z Dilation of Coronary Artery, One Artery with Drug-eluting Intraluminal Device, Percutaneous Approach (ICD-10-PCS; principal; 2021-07-21 19:41)
PROC: 02HA3RJ Insertion of Short-term External Heart Assist System into Heart, Intraoperative, Percutaneous Approach (ICD-10-PCS; 2021-07-21 19:41)
PROC: 5A0221D Assistance with Cardiac Output using Impeller Pump, Continuous (ICD-10-PCS; 2021-07-21 19:41)
DX: A41.89 Other specified sepsis (principal); U07.1 COVID-19; I21.4 Non-ST elevation (NSTEMI) myocardial infarction; J12.82 Pneumonia due to coronavirus disease 2019; R65.21 Severe sepsis with septic shock; E87.2 Acidosis; F20.0 Paranoid schizophrenia; N17.9 Acute kidney failure, unspecified; I42.9 Cardiomyopathy, unspecified; J44.0 Chronic obstructive pulmonary disease with (acute) lower respiratory infection; I46.2 Cardiac arrest due to underlying cardiac condition; F10.21 Alcohol dependence, in remission; R57.0 Cardiogenic shock; D64.9 Anemia, unspecified; E11.9 Type 2 diabetes mellitus without complications; E78.5 Hyperlipidemia, unspecified; F17.210 Nicotine dependence, cigarettes, uncomplicated; F43.10 Post-traumatic stress disorder, unspecified; I10 Essential (primary) hypertension; I25.10 Atherosclerotic heart disease of native coronary artery without angina pectoris; J44.9 Chronic obstructive pulmonary disease, unspecified; I48.91 Unspecified atrial fibrillation; N40.0 Benign prostatic hyperplasia without lower urinary tract symptoms; Z66 Do not resuscitate; Z79.4 Long term (current) use of insulin; Z82.3 Family history of stroke; Z79.899 Other long term (current) drug therapy; Z82.49 Family history of ischemic heart disease and other diseases of the circulatory system; Z79.84 Long term (current) use of oral hypoglycemic drugs; Z85.820 Personal history of malignant melanoma of skin; Z86.79 Personal history of other diseases of the circulatory system; Z95.5 Presence of coronary angioplasty implant and graft; Z88.8 Allergy status to other drugs, medicaments and biological substances; Z88.5 Allergy status to narcotic agent; Z98.42 Cataract extraction status, left eye; Z98.41 Cataract extraction status, right eye
CPT/HCPCS: 71045; 80048; 82805; 83605; 83615; 83735; 85025; 85384; 85610; 85730; 87070; 87205; 93308; 93454; 94002